=== PATIENT | male | born 1960 | race Caucasian/White ===

== ENCOUNTER 2018-05-18 13:16 | Emergency (ER) | payer OTHER ==
[~2018-05-18] VITALS: Ht 172.7 cm; Wt 111.1 kg
[2018-05-18] MEDS ORDERED: METO25 (14:08)
[2018-05-18 14:31] LABS: BASOPHILS ABSOLUTE AUTO 0.03 K/mm3 (0.00-0.23); BASOPHILS PERCENT AUTO 0 % (0-2); EOSINOPHILS ABSOLUTE AUTO 0.14 K/mm3 (0.00-0.68); EOSINOPHILS PERCENT AUTO 2 % (0-6); Hematocrit 48.3 % (37.0-53.0); Hemoglobin 15.5 g/dL (13.5-17.5); IMMATURE GRAN ABSOLUTE AUTO 0.03 K/mm3 (0.00-0.10); IMMATURE GRAN PERCENT AUTO 0 % (0-1); LYMPHOCYTES ABSOLUTE AUTO 2.55 K/mm3 (0.84-5.20); LYMPHOCYTES PERCENT AUTO 29 % (21-46); MONOCYTES ABSOLUTE AUTO 0.58 K/mm3 (0.16-1.47); MONOCYTES PERCENT AUTO 7 % (4-13); Mean Corpuscular HGB 27.6 pg (26.0-34.0); Mean Corpuscular HGB Conc 32.1 g/dL (31.5-36.5); Mean Corpuscular Volume 86 fL (80-100); Mean Platelet Volume 11.2 fL (9.1-12.4); NEUTROPHILS ABSOLUTE AUTO 5.59 K/mm3 (1.96-9.15); NEUTROPHILS PERCENT AUTO 63 % (41-73); Platelet Count 184 K/mm3 (150-400); RDW Coefficient Variation 13.7 % (11.7-14.2); RDW Standard Deviation 43.2 fL (35.1-46.3); Red Blood Cell Count 5.61 M/mm3 (4.30-5.90); White Blood Cell Count 8.92 K/mm3 (4.00-11.30)
[2018-05-18 15:32] LABS: Alanine Aminotransfer (ALT/SGP 28 U/L (12-78); Albumin, Blood 3.7 g/dL (3.4-5.0); Albumin/Globulin Ratio 0.9 (0.8-1.8); Alk Phos 76 U/L (50-136); Anion Gap 11 mmol/L (6-16); Aspartate Aminotrans (AST/SGOT 19 U/L (12-37); Bilirubin, Total 0.5 mg/dL (0.1-1.0); Blood Urea Nitrogen 11 mg/dL (8-24); Bun/Creatinine Ratio 14.1 (12.0-20.0); CO2, Blood 22 mmol/L (21-32); Calcium, Blood 8.6 mg/dL (8.5-10.1); Chloride, Blood 108 mmol/L (98-108); Creatinine, Blood 0.78 mg/dL (0.60-1.20); Glomerular Filtration Rate >60 (60-); Glucose, Blood 102 mg/dL (70-99); Potassium, Blood 3.4 mmol/L (3.5-5.5); Sodium, Blood 141 mmol/L (136-145); Total Protein, Blood 7.7 g/dL (6.4-8.2); Troponin I <0.015 ng/mL (0.000-0.040)
[2018-05-18] MEDS ORDERED: VENL150ER PO (16:31)
[2018-05-18] MEDS ORDERED: Lopressor 50 mg50 MG PO (16:31)
[2018-05-18] MEDS ORDERED: LOSA50 PO (16:31)
[2018-05-18] MEDS ORDERED: BREO ELLIPTA 11 EACH INH (16:31)
[2018-05-18] MEDS ORDERED: K-Dur10 MEQ PO (16:31)
[2018-05-18] MEDS ORDERED: Protonix40 MG PO (16:31)
[2018-05-18] MEDS ORDERED: Nitrostat0.4 MG SL (16:31)
[2018-05-18] MEDS ORDERED: ATOR20 PO (16:31)
[2018-05-18] MEDS ORDERED: ALBU90OI INH (16:31)
[2018-05-18] MEDS ORDERED: FLONASE ALLERG9.9 ML (16:31)
== END 2018-05-18 16:57 | disposition home or self-care (01) ==
LOC: ER 13:16
PROVIDERS: Emergency Medicine
DX: R06.00 Dyspnea, unspecified (principal); R07.9 Chest pain, unspecified; Z76.0 Encounter for issue of repeat prescription; Z88.8 Allergy status to other drugs, medicaments and biological substances; Z79.899 Other long term (current) drug therapy; Z77.22 Contact with and (suspected) exposure to environmental tobacco smoke (acute) (chronic)
CPT/HCPCS: 71046; 80053; 84484; 85025; 93005; 93010; 99285-25

== ENCOUNTER 2018-08-17 19:41 | Emergency (ER) | payer OTHER ==
[~2018-08-17] VITALS: Ht 180.3 cm; Wt 113.4 kg
[~2018-08-17 19:41] MED LIST: ALBU90OI INH; ATOR20 PO; BREO ELLIPTA 11 EACH INH; FLONASE ALLERG9.9 ML; K-Dur10 MEQ PO; LOSA50 PO; Lopressor 50 mg50 MG PO; METO25; Nitrostat0.4 MG SL; Protonix40 MG PO; VENL150ER PO
[2018-08-17 20:14] LABS: BASOPHILS ABSOLUTE AUTO 0.02 K/mm3 (0.00-0.23); BASOPHILS PERCENT AUTO 0 % (0-2); EOSINOPHILS ABSOLUTE AUTO 0.06 K/mm3 (0.00-0.68); EOSINOPHILS PERCENT AUTO 1 % (0-6); Hematocrit 51.2 % (37.0-53.0); Hemoglobin 16.3 g/dL (13.5-17.5); IMMATURE GRAN ABSOLUTE AUTO 0.02 K/mm3 (0.00-0.10); IMMATURE GRAN PERCENT AUTO 0 % (0-1); LYMPHOCYTES ABSOLUTE AUTO 1.67 K/mm3 (0.84-5.20); LYMPHOCYTES PERCENT AUTO 22 % (21-46); MONOCYTES ABSOLUTE AUTO 0.48 K/mm3 (0.16-1.47); MONOCYTES PERCENT AUTO 6 % (4-13); Mean Corpuscular HGB 28.2 pg (26.0-34.0); Mean Corpuscular HGB Conc 31.8 g/dL (31.5-36.5); Mean Corpuscular Volume 89 fL (80-100); Mean Platelet Volume 11.8 fL (9.1-12.4); NEUTROPHILS PERCENT AUTO 71 % (41-73); Platelet Count 204 K/mm3 (150-400); RDW Standard Deviation 45.3 fL (35.1-46.3); Red Blood Cell Count 5.77 M/mm3 (4.30-5.90); White Blood Cell Count 7.75 K/mm3 (4.00-11.30)
[2018-08-17 20:26] LABS: Alanine Aminotransfer (ALT/SGP 36 U/L (12-78); Albumin, Blood 4.3 g/dL (3.4-5.0); Albumin/Globulin Ratio 1.1 (0.8-1.8); Alk Phos 81 U/L (50-136); Anion Gap 9 mmol/L (6-16); Aspartate Aminotrans (AST/SGOT 17 U/L (12-37); Bilirubin, Total 0.5 mg/dL (0.1-1.0); Blood Urea Nitrogen 13 mg/dL (8-24); Bun/Creatinine Ratio 13.9 (12.0-20.0); CO2, Blood 26 mmol/L (21-32); Chloride, Blood 106 mmol/L (98-108); Creatinine, Blood 0.93 mg/dL (0.60-1.20); Globulin, Blood 3.9 g/dL (2.2-4.0); Glomerular Filtration Rate >60 (60-); Glucose, Blood 102 mg/dL (70-99); Potassium, Blood 3.9 mmol/L (3.5-5.5); Sodium, Blood 141 mmol/L (136-145); Total Protein, Blood 8.2 g/dL (6.4-8.2); Troponin I <0.015 ng/mL (0.000-0.040)
[2018-08-17] MEDS ORDERED: Aspirin EC81 MG PO (22:57)
== END 2018-08-17 23:12 | disposition home or self-care (01) ==
LOC: ER 19:41
PROVIDERS: Emergency Medicine
DX: R07.2 Precordial pain (principal); I25.10 Atherosclerotic heart disease of native coronary artery without angina pectoris; Z59.0 Homelessness; I25.2 Old myocardial infarction; I10 Essential (primary) hypertension; Z91.09 Other allergy status, other than to drugs and biological substances
CPT/HCPCS: 71046; 80053; 84484; 85025; 93005; 93010; 96374; 99285-25; J2405

== ENCOUNTER 2018-09-25 15:39 | Observation (INO) | payer OTHER ==
[~2018-09-25] VITALS: Ht 180.3 cm; Wt 139.3 kg
[~2018-09-25 15:39] MED LIST changes: +Aspirin EC81 MG PO; +PRED10 PO
[2018-09-25 16:12] LABS: BASOPHILS ABSOLUTE AUTO 0.03 K/mm3 (0.00-0.23); BASOPHILS PERCENT AUTO 0 % (0-2); EOSINOPHILS ABSOLUTE AUTO 0.12 K/mm3 (0.00-0.68); EOSINOPHILS PERCENT AUTO 1 % (0-6); Hematocrit 49.3 % (37.0-53.0); Hemoglobin 15.6 g/dL (13.5-17.5); IMMATURE GRAN ABSOLUTE AUTO 0.02 K/mm3 (0.00-0.10); IMMATURE GRAN PERCENT AUTO 0 % (0-1); LYMPHOCYTES ABSOLUTE AUTO 1.61 K/mm3 (0.84-5.20); LYMPHOCYTES PERCENT AUTO 19 % (21-46); MONOCYTES ABSOLUTE AUTO 0.57 K/mm3 (0.16-1.47); MONOCYTES PERCENT AUTO 7 % (4-13); Mean Corpuscular HGB 27.9 pg (26.0-34.0); Mean Corpuscular HGB Conc 31.6 g/dL (31.5-36.5); Mean Corpuscular Volume 88 fL (80-100); NEUTROPHILS ABSOLUTE AUTO 6.34 K/mm3 (1.96-9.15); NEUTROPHILS PERCENT AUTO 73 % (41-73); Platelet Count 174 K/mm3 (150-400); RDW Coefficient Variation 14.3 % (11.7-14.2); RDW Standard Deviation 45.5 fL (35.1-46.3); White Blood Cell Count 8.69 K/mm3 (4.00-11.30)
[2018-09-25 16:29] LABS: International Normalized Ratio 0.98; Prothrombin Time Results 10.1 Sec (9.7-11.5)
[2018-09-25 16:38] LABS: Alanine Aminotransfer (ALT/SGP 31 U/L (12-78); Albumin, Blood 3.4 g/dL (3.4-5.0); Albumin/Globulin Ratio 0.9 (0.8-1.8); Alk Phos 74 U/L (50-136); Anion Gap 9 mmol/L (6-16); Aspartate Aminotrans (AST/SGOT 11 U/L (12-37); Bilirubin, Total 0.3 mg/dL (0.1-1.0); Blood Urea Nitrogen 10 mg/dL (8-24); Bun/Creatinine Ratio 11.8 (12.0-20.0); CO2, Blood 23 mmol/L (21-32); Calcium, Blood 8.3 mg/dL (8.5-10.1); Chloride, Blood 110 mmol/L (98-108); Creatinine, Blood 0.84 mg/dL (0.60-1.20); Globulin, Blood 3.7 g/dL (2.2-4.0); Glomerular Filtration Rate >60 (60-); Glucose, Blood 93 mg/dL (70-99); Potassium, Blood 3.9 mmol/L (3.5-5.5); Sodium, Blood 142 mmol/L (136-145); Total Protein, Blood 7.1 g/dL (6.4-8.2); Troponin I <0.015 ng/mL (0.000-0.040)
[2018-09-25] MEDS ORDERED: Micro-K10 MEQ PO (21:34)
[2018-09-25] MEDS ORDERED: Amlodipine Bes2.5 MG PO (21:34)
[2018-09-25] MEDS ORDERED: METO50 PO (21:35)
[2018-09-25] MEDS ORDERED: ATOR20 PO (21:35)
[2018-09-25] MEDS ORDERED: VENL150ER PO ×2 (21:35→21:36)
[2018-09-25] MEDS ORDERED: LOSARTAN POTAS100 MG PO (21:36)
[2018-09-25] MEDS ORDERED: BUDE10.22 INH (21:36)
[2018-09-25] MEDS ORDERED: PANT40 PO (21:36)
[2018-09-25] MEDS ORDERED: ALBU90OI INH (21:37)
[2018-09-25] MEDS ORDERED: TIOT18 INH (21:37)
[2018-09-26 03:26] LABS: Source, Urine Clean Catch
[2018-09-26 03:29] LABS: Bilirubin, Urine Neg (Neg); Blood, Urine 1+ (Neg); Glucose Qualitative, Urine Neg (Neg); Ketones, Urine Neg (Neg); Leukocyte Esterase, Urine Neg (Neg); Nitrite, Urine Neg (Neg); Protein, Urine Neg (Neg); Urobilinogen, Urine NORM (Normal)
[2018-09-26 03:33] LABS: Appearance, Urine Clear (Clear); Color, Urine Yellow (P-Yellow)
[2018-09-26 03:38] LABS: Amorphous Light (0-Heavy); Bacteria Rare /hpf; Mucus Light (0-Heavy); Red Blood Cells, Urine 0-2 /hpf (0-2); Squamous Epithelial Cells Rare /hpf (Few); White Blood Cells, Urine Rare /hpf (0-5)
[2018-09-26 04:04] LABS: Hemoglobin 15.7 g/dL (13.5-17.5); Mean Corpuscular HGB 28.3 pg (26.0-34.0); Mean Corpuscular Volume 88 fL (80-100); Mean Platelet Volume 11.4 fL (9.1-12.4); Platelet Count 186 K/mm3 (150-400); RDW Coefficient Variation 14.5 % (11.7-14.2); RDW Standard Deviation 46.5 fL (35.1-46.3); Red Blood Cell Count 5.55 M/mm3 (4.30-5.90); White Blood Cell Count 9.52 K/mm3 (4.00-11.30)
[2018-09-26 04:21] LABS: Alanine Aminotransfer (ALT/SGP 39 U/L (12-78); Albumin, Blood 3.2 g/dL (3.4-5.0); Albumin/Globulin Ratio 0.8 (0.8-1.8); Alk Phos 75 U/L (50-136); Anion Gap 9 mmol/L (6-16); Aspartate Aminotrans (AST/SGOT 16 U/L (12-37); Bilirubin, Total 0.6 mg/dL (0.1-1.0); Blood Urea Nitrogen 15 mg/dL (8-24); Bun/Creatinine Ratio 19.3 (12.0-20.0); CO2, Blood 26 mmol/L (21-32); Calcium, Blood 8.8 mg/dL (8.5-10.1); Chloride, Blood 110 mmol/L (98-108); Creatinine, Blood 0.78 mg/dL (0.60-1.20); Globulin, Blood 3.8 g/dL (2.2-4.0); Glomerular Filtration Rate >60 (60-); Glucose, Blood 110 mg/dL (70-99); Potassium, Blood 3.8 mmol/L (3.5-5.5); Sodium, Blood 145 mmol/L (136-145)
[2018-09-27 05:22] LABS: Albumin, Blood 3.4 g/dL (3.4-5.0); Anion Gap 9 mmol/L (6-16); Blood Urea Nitrogen 17 mg/dL (8-24); CO2, Blood 24 mmol/L (21-32); Calcium, Blood 8.8 mg/dL (8.5-10.1); Chloride, Blood 107 mmol/L (98-108); Creatinine, Blood 0.81 mg/dL (0.60-1.20); Glomerular Filtration Rate >60 (60-); Glucose, Blood 116 mg/dL (70-99); Phosphorus, Blood 5.6 mg/dL (2.5-4.9); Potassium, Blood 4.3 mmol/L (3.5-5.5); Sodium, Blood 140 mmol/L (136-145)
[2018-09-28 06:14] LABS: Anion Gap 9 mmol/L (6-16); Blood Urea Nitrogen 24 mg/dL (8-24); Bun/Creatinine Ratio 28.8 (12.0-20.0); CO2, Blood 26 mmol/L (21-32); Calcium, Blood 8.8 mg/dL (8.5-10.1); Chloride, Blood 106 mmol/L (98-108); Creatinine, Blood 0.83 mg/dL (0.60-1.20); Glomerular Filtration Rate >60 (60-); Glucose, Blood 100 mg/dL (70-99); Sodium, Blood 141 mmol/L (136-145)
[2018-09-29 06:11] LABS: Anion Gap 8 mmol/L (6-16); Blood Urea Nitrogen 23 mg/dL (8-24); Bun/Creatinine Ratio 23.4 (12.0-20.0); CO2, Blood 29 mmol/L (21-32); Calcium, Blood 8.9 mg/dL (8.5-10.1); Chloride, Blood 104 mmol/L (98-108); Creatinine, Blood 0.98 mg/dL (0.60-1.20); Glomerular Filtration Rate >60 (60-); Glucose, Blood 106 mg/dL (70-99); Sodium, Blood 141 mmol/L (136-145)
[2018-09-30] MEDS ORDERED: Metoprolol Tar100 MG PO (16:18)
[2018-09-30] MEDS ORDERED: Bisac-Evac10 MG PR (16:18)
[2018-09-30] MEDS ORDERED: FURO20 PO (16:19)
[2018-09-30] MEDS ORDERED: ONDA4ODT MM (16:19)
[2018-09-30] MEDS ORDERED: XARELTO20 MG PO (16:20)
== END 2018-09-30 17:20 | disposition home or self-care (01) ==
LOC: ER 15:39 → SURS 15:40 → MEDS 15:40 → SURS 09-26 00:50
PROVIDERS: Family Medicine; Internal Medicine; Physician Assistant
DX: I11.0 Hypertensive heart disease with heart failure (principal); I50.9 Heart failure, unspecified; I48.91 Unspecified atrial fibrillation; I25.10 Atherosclerotic heart disease of native coronary artery without angina pectoris; E66.9 Obesity, unspecified; G47.33 Obstructive sleep apnea (adult) (pediatric); E11.9 Type 2 diabetes mellitus without complications; E78.00 Pure hypercholesterolemia, unspecified; Z79.01 Long term (current) use of anticoagulants; Z91.041 Radiographic dye allergy status; Z79.82 Long term (current) use of aspirin; Z79.899 Other long term (current) drug therapy; Z99.89 Dependence on other enabling machines and devices
CPT/HCPCS: 36415; 71046; 78452; 80048; 80053; 80069; 81001; 83880; 84443; 84484; 85025; 85027; 85610; 85730; 93005; 93010; 93017; 93306; 94640; 94660; 94762; 96374; 96375; 96376; 99285-25; A9500; G0378; J0360; J0706; J1940; J2785; J7040

== ENCOUNTER 2018-11-15 01:21 | Emergency (ER) | payer OTHER ==
[~2018-11-15] VITALS: Ht 180.3 cm; Wt 127.0 kg
[~2018-11-15 01:21] MED LIST changes: +Amlodipine Bes2.5 MG PO; +BUDE10.22 INH; +Bisac-Evac10 MG PR; +FURO20 PO; +LOSARTAN POTAS100 MG PO; +METO50 PO; +Metoprolol Tar100 MG PO; +Micro-K10 MEQ PO; +ONDA4ODT MM; +PANT40 PO; +TIOT18 INH; +XARELTO20 MG PO
[2018-11-15] MEDS ORDERED: Prednisone50 MG PO (02:17)
== END 2018-11-15 02:45 | disposition home or self-care (01) ==
LOC: ER 01:21
DX: J45.901 Unspecified asthma with (acute) exacerbation (principal); I25.2 Old myocardial infarction; I10 Essential (primary) hypertension; G47.30 Sleep apnea, unspecified; Z91.09 Other allergy status, other than to drugs and biological substances; Z91.048 Other nonmedicinal substance allergy status; Z79.899 Other long term (current) drug therapy; Z79.82 Long term (current) use of aspirin
CPT/HCPCS: 36415; 93005; 93010; 94640; 99284-25

== ENCOUNTER 2018-12-10 16:44 | Emergency (ER) | payer OTHER ==
[~2018-12-10] VITALS: Ht 180.3 cm; Wt 127.0 kg
[~2018-12-10 16:44] MED LIST changes: +Prednisone50 MG PO
[2018-12-10 18:44] LABS: BASOPHILS ABSOLUTE AUTO 0.02 K/mm3 (0.00-0.23); BASOPHILS PERCENT AUTO 0 % (0-2); EOSINOPHILS ABSOLUTE AUTO 0.13 K/mm3 (0.00-0.68); EOSINOPHILS PERCENT AUTO 2 % (0-6); Hematocrit 45.6 % (37.0-53.0); Hemoglobin 14.4 g/dL (13.5-17.5); IMMATURE GRAN ABSOLUTE AUTO 0.02 K/mm3 (0.00-0.10); IMMATURE GRAN PERCENT AUTO 0 % (0-1); LYMPHOCYTES ABSOLUTE AUTO 1.74 K/mm3 (0.84-5.20); LYMPHOCYTES PERCENT AUTO 23 % (21-46); MONOCYTES ABSOLUTE AUTO 0.47 K/mm3 (0.16-1.47); MONOCYTES PERCENT AUTO 6 % (4-13); Mean Corpuscular HGB 28.2 pg (26.0-34.0); Mean Corpuscular HGB Conc 31.6 g/dL (31.5-36.5); Mean Corpuscular Volume 89 fL (80-100); NEUTROPHILS ABSOLUTE AUTO 5.23 K/mm3 (1.96-9.15); NEUTROPHILS PERCENT AUTO 69 % (41-73); Platelet Count 179 K/mm3 (150-400); RDW Coefficient Variation 14.3 % (11.7-14.2); RDW Standard Deviation 47.3 fL (35.1-46.3); White Blood Cell Count 7.61 K/mm3 (4.00-11.30)
[2018-12-10 19:03] LABS: Alanine Aminotransfer (ALT/SGP 28 U/L (12-78); Albumin, Blood 3.4 g/dL (3.4-5.0); Albumin/Globulin Ratio 0.9 (0.8-1.8); Alk Phos 69 U/L (50-136); Anion Gap 7 mmol/L (6-16); Aspartate Aminotrans (AST/SGOT 11 U/L (12-37); Bilirubin, Total 0.4 mg/dL (0.1-1.0); Blood Urea Nitrogen 14 mg/dL (8-24); Bun/Creatinine Ratio 19.5 (12.0-20.0); CO2, Blood 25 mmol/L (21-32); Chloride, Blood 109 mmol/L (98-108); Creatinine, Blood 0.72 mg/dL (0.60-1.20); Globulin, Blood 3.8 g/dL (2.2-4.0); Glomerular Filtration Rate >60 (60-); Glucose, Blood 100 mg/dL (70-99); Potassium, Blood 3.7 mmol/L (3.5-5.5); Sodium, Blood 141 mmol/L (136-145); Total Protein, Blood 7.2 g/dL (6.4-8.2); Troponin I <0.015 ng/mL (0.000-0.040)
[2018-12-10] MEDS ORDERED: Nitrostat0.4 MG SL (21:14)
== END 2018-12-10 21:32 | disposition home or self-care (01) ==
LOC: ER 16:44
PROVIDERS: Emergency Medicine
DX: R07.9 Chest pain, unspecified (principal); I25.10 Atherosclerotic heart disease of native coronary artery without angina pectoris; I25.2 Old myocardial infarction; I10 Essential (primary) hypertension; E11.9 Type 2 diabetes mellitus without complications; J45.909 Unspecified asthma, uncomplicated; G47.30 Sleep apnea, unspecified; Z91.041 Radiographic dye allergy status; Z91.048 Other nonmedicinal substance allergy status; Z79.899 Other long term (current) drug therapy; Z79.82 Long term (current) use of aspirin; Z79.52 Long term (current) use of systemic steroids
CPT/HCPCS: 36415; 71046; 80053; 83690; 84484; 85025; 93005; 93010; 99285-25

== ENCOUNTER 2019-03-18 23:07 | Observation (INO) | payer OTHER ==
[~2019-03-18] VITALS: Ht 180.3 cm; Wt 111.1 kg
[~2019-03-18 23:07] MED LIST changes: +Aerochamber1 EACH INH
[2019-03-18 23:53] LABS: Source, Urine Catheter
[2019-03-18 23:59] LABS: BASOPHILS ABSOLUTE AUTO 0.03 K/mm3 (0.00-0.23); BASOPHILS PERCENT AUTO 0 % (0-2); Bilirubin, Urine Neg (Neg); Blood, Urine 2+ (Neg); EOSINOPHILS ABSOLUTE AUTO 0.15 K/mm3 (0.00-0.68); EOSINOPHILS PERCENT AUTO 2 % (0-6); Glucose Qualitative, Urine Neg (Neg); Hematocrit 48.4 % (37.0-53.0); Hemoglobin 15.2 g/dL (13.5-17.5); IMMATURE GRAN ABSOLUTE AUTO 0.03 K/mm3 (0.00-0.10); IMMATURE GRAN PERCENT AUTO 0 % (0-1); Ketones, Urine Neg (Neg); LYMPHOCYTES ABSOLUTE AUTO 1.98 K/mm3 (0.84-5.20); LYMPHOCYTES PERCENT AUTO 22 % (21-46); Leukocyte Esterase, Urine 1+ (Neg); MONOCYTES ABSOLUTE AUTO 0.66 K/mm3 (0.16-1.47); MONOCYTES PERCENT AUTO 7 % (4-13); Mean Corpuscular HGB Conc 31.4 g/dL (31.5-36.5); Mean Corpuscular Volume 89 fL (80-100); Mean Platelet Volume 12.2 fL (9.1-12.4); NEUTROPHILS PERCENT AUTO 68 % (41-73); Nitrite, Urine Neg (Neg); Platelet Count 191 K/mm3 (150-400); Protein, Urine 1+ (Neg); RDW Coefficient Variation 14.6 % (11.7-14.2); Red Blood Cell Count 5.42 M/mm3 (4.30-5.90); Urobilinogen, Urine NORM (Normal); White Blood Cell Count 8.95 K/mm3 (4.00-11.30); pH, Urine 6.5 (5.0-8.0)
[2019-03-19 00:06] LABS: Appearance, Urine Clear (Clear); Color, Urine Yellow (P-Yellow)
[2019-03-19 00:11] LABS: U Amphetamine Screen Not Detected; U Barbituate Screen Not Detected; U Benzodiazapine Screen Not Detected; U Buprenorphine Screen Not Detected; U Cannabinoids Screen Not Detected; U Cocaine Screen Not Detected; U Methadone Screen Not Detected; U Methamphetamine Screen Not Detected; U Opiates Screen Not Detected; U Oxycodone Screen Not Detected; U Phencyclidine Screen Not Detected; U Propoxyphene Screen Not Detected
[2019-03-19 00:13] LABS: Alanine Aminotransfer (ALT/SGP 31 U/L (12-78); Albumin, Blood 3.8 g/dL (3.4-5.0); Alk Phos 79 U/L (50-136); Anion Gap 9 mmol/L (6-16); Aspartate Aminotrans (AST/SGOT 16 U/L (12-37); Bacteria Rare /hpf; Bilirubin, Total 0.3 mg/dL (0.1-1.0); Blood Urea Nitrogen 14 mg/dL (8-24); Bun/Creatinine Ratio 16.5 (12.0-20.0); CO2, Blood 28 mmol/L (21-32); CPK Creatine Kinase 61 U/L (39-308); Chloride, Blood 106 mmol/L (98-108); Creatine Kinase MB 1.2 ng/mL (0.0-3.6); Creatinine, Blood 0.85 mg/dL (0.60-1.20); Glomerular Filtration Rate >60 (60-); Glucose, Blood 94 mg/dL (70-99); Magnesium, Blood 2.3 mg/dL (1.6-2.4); Mucus Light (0-Heavy); Potassium, Blood 3.7 mmol/L (3.5-5.5); Salicylate <1.7 mg/dL (2.8-20.0); Sodium, Blood 143 mmol/L (136-145); Squamous Epithelial Cells Rare /hpf (Few); Total Protein, Blood 7.8 g/dL (6.4-8.2); White Blood Cells, Urine 0-2 /hpf (0-5)
[2019-03-19 00:14] LABS: Acetaminophen, Random <2.0 ug/mL (10.0-30.0); Ethanol (Alcohol), Blood, Med <3 mg/dL; International Normalized Ratio 0.97; Prothrombin Time Results 10.3 Sec (9.7-11.5)
== END 2019-03-19 12:10 | disposition home or self-care (01) ==
LOC: ER 23:07 → EOR 23:08
PROVIDERS: ADMIT Emergency Medicine
DX: F22 Delusional disorders (principal); F29 Unspecified psychosis not due to a substance or known physiological condition; F39 Unspecified mood [affective] disorder; I25.2 Old myocardial infarction; I10 Essential (primary) hypertension; I48.91 Unspecified atrial fibrillation; J45.909 Unspecified asthma, uncomplicated; G47.30 Sleep apnea, unspecified; Z91.041 Radiographic dye allergy status; Z91.048 Other nonmedicinal substance allergy status; Z79.899 Other long term (current) drug therapy; Z79.52 Long term (current) use of systemic steroids; Z79.82 Long term (current) use of aspirin; Z86.73 Personal history of transient ischemic attack (TIA), and cerebral infarction without residual deficits; W18.30XA Fall on same level, unspecified, initial encounter
CPT/HCPCS: 70450; 80053; 81001; 82550; 82553; 83735; 85025; 85610; 87086; 87147; 93005; 93010; 99285-25; G0480; Q3014

== ENCOUNTER 2019-03-27 02:55 | Emergency (ER) | payer OTHER ==
[~2019-03-27] VITALS: Ht 180.3 cm; Wt 140.6 kg
[2019-03-27 03:15] LABS: BASOPHILS ABSOLUTE AUTO 0.03 K/mm3 (0.00-0.23); BASOPHILS PERCENT AUTO 0 % (0-2); EOSINOPHILS ABSOLUTE AUTO 0.15 K/mm3 (0.00-0.68); EOSINOPHILS PERCENT AUTO 2 % (0-6); Hematocrit 48.9 % (37.0-53.0); Hemoglobin 15.2 g/dL (13.5-17.5); IMMATURE GRAN ABSOLUTE AUTO 0.02 K/mm3 (0.00-0.10); IMMATURE GRAN PERCENT AUTO 0 % (0-1); LYMPHOCYTES ABSOLUTE AUTO 2.38 K/mm3 (0.84-5.20); LYMPHOCYTES PERCENT AUTO 28 % (21-46); MONOCYTES ABSOLUTE AUTO 0.67 K/mm3 (0.16-1.47); MONOCYTES PERCENT AUTO 8 % (4-13); Mean Corpuscular HGB 27.8 pg (26.0-34.0); Mean Corpuscular HGB Conc 31.1 g/dL (31.5-36.5); Mean Corpuscular Volume 90 fL (80-100); Mean Platelet Volume 11.4 fL (9.1-12.4); NEUTROPHILS PERCENT AUTO 62 % (41-73); Platelet Count 196 K/mm3 (150-400); RDW Coefficient Variation 14.8 % (11.7-14.2); RDW Standard Deviation 48.8 fL (35.1-46.3); Red Blood Cell Count 5.46 M/mm3 (4.30-5.90); White Blood Cell Count 8.45 K/mm3 (4.00-11.30)
[2019-03-27 03:36] LABS: Alanine Aminotransfer (ALT/SGP 28 U/L (12-78); Albumin, Blood 3.6 g/dL (3.4-5.0); Albumin/Globulin Ratio 0.9 (0.8-1.8); Alk Phos 78 U/L (50-136); Anion Gap 11 mmol/L (6-16); Aspartate Aminotrans (AST/SGOT 12 U/L (12-37); Bilirubin, Total 0.3 mg/dL (0.1-1.0); Blood Urea Nitrogen 19 mg/dL (8-24); Bun/Creatinine Ratio 18.1 (12.0-20.0); CO2, Blood 26 mmol/L (21-32); Calcium, Blood 8.6 mg/dL (8.5-10.1); Chloride, Blood 108 mmol/L (98-108); Creatinine, Blood 1.05 mg/dL (0.60-1.20); Glomerular Filtration Rate >60 (60-); Glucose, Blood 123 mg/dL (70-99); Potassium, Blood 3.6 mmol/L (3.5-5.5); Sodium, Blood 145 mmol/L (136-145); Total Protein, Blood 7.6 g/dL (6.4-8.2); Troponin I <0.015 ng/mL (0.000-0.040)
[2019-03-27] MEDS ORDERED: ONDA4ODT MM (04:41)
== END 2019-03-27 05:20 | disposition home or self-care (01) ==
LOC: ER 02:55
PROVIDERS: Emergency Medicine
DX: R11.2 Nausea with vomiting, unspecified (principal); Z88.8 Allergy status to other drugs, medicaments and biological substances; Z79.899 Other long term (current) drug therapy; Z79.82 Long term (current) use of aspirin; I10 Essential (primary) hypertension; I25.2 Old myocardial infarction; I48.91 Unspecified atrial fibrillation
CPT/HCPCS: 36415; 71046; 80053; 83690; 84484; 85025; 93005; 93010; 96374; 99284-25; G0480; J2405; J7030

== ENCOUNTER 2019-04-06 05:34 | Emergency (ER) | payer OTHER ==
[~2019-04-06] VITALS: Ht 180.3 cm; Wt 145.2 kg
[2019-04-06 06:05] LABS: BASOPHILS ABSOLUTE AUTO 0.03 K/mm3 (0.00-0.23); BASOPHILS PERCENT AUTO 0 % (0-2); EOSINOPHILS ABSOLUTE AUTO 0.23 K/mm3 (0.00-0.68); EOSINOPHILS PERCENT AUTO 3 % (0-6); Hematocrit 41.7 % (37.0-53.0); IMMATURE GRAN ABSOLUTE AUTO 0.02 K/mm3 (0.00-0.10); IMMATURE GRAN PERCENT AUTO 0 % (0-1); LYMPHOCYTES ABSOLUTE AUTO 1.56 K/mm3 (0.84-5.20); LYMPHOCYTES PERCENT AUTO 22 % (21-46); MONOCYTES ABSOLUTE AUTO 0.48 K/mm3 (0.16-1.47); MONOCYTES PERCENT AUTO 7 % (4-13); Mean Corpuscular HGB 27.8 pg (26.0-34.0); Mean Corpuscular HGB Conc 31.2 g/dL (31.5-36.5); Mean Corpuscular Volume 89 fL (80-100); Mean Platelet Volume 11.7 fL (9.1-12.4); NEUTROPHILS ABSOLUTE AUTO 4.85 K/mm3 (1.96-9.15); NEUTROPHILS PERCENT AUTO 68 % (41-73); Platelet Count 166 K/mm3 (150-400); RDW Coefficient Variation 15.3 % (11.7-14.2); RDW Standard Deviation 49.6 fL (35.1-46.3); Red Blood Cell Count 4.67 M/mm3 (4.30-5.90); White Blood Cell Count 7.17 K/mm3 (4.00-11.30)
[2019-04-06 06:25] LABS: Alanine Aminotransfer (ALT/SGP 26 U/L (12-78); Albumin, Blood 3.3 g/dL (3.4-5.0); Albumin/Globulin Ratio 0.9 (0.8-1.8); Alk Phos 62 U/L (50-136); Anion Gap 6 mmol/L (6-16); Aspartate Aminotrans (AST/SGOT 18 U/L (12-37); Bilirubin, Total 0.2 mg/dL (0.1-1.0); Blood Urea Nitrogen 13 mg/dL (8-24); CO2, Blood 25 mmol/L (21-32); Calcium, Blood 8.2 mg/dL (8.5-10.1); Chloride, Blood 111 mmol/L (98-108); Creatinine, Blood 0.76 mg/dL (0.60-1.20); Globulin, Blood 3.5 g/dL (2.2-4.0); Glomerular Filtration Rate >60 (60-); Glucose, Blood 114 mg/dL (70-99); Potassium, Blood 3.7 mmol/L (3.5-5.5); Sodium, Blood 142 mmol/L (136-145); Total Protein, Blood 6.8 g/dL (6.4-8.2); Troponin I <0.015 ng/mL (0.000-0.040)
[2019-04-06] MEDS ORDERED: Lasix20 MG PO (06:54)
== END 2019-04-06 07:35 | disposition home or self-care (01) ==
LOC: ER 05:34
PROVIDERS: Emergency Medicine
DX: R60.0 Localized edema (principal); I10 Essential (primary) hypertension; Z88.8 Allergy status to other drugs, medicaments and biological substances; Z79.899 Other long term (current) drug therapy; Z79.52 Long term (current) use of systemic steroids; Z79.82 Long term (current) use of aspirin; I25.10 Atherosclerotic heart disease of native coronary artery without angina pectoris; I48.91 Unspecified atrial fibrillation; J45.909 Unspecified asthma, uncomplicated; Z86.73 Personal history of transient ischemic attack (TIA), and cerebral infarction without residual deficits
CPT/HCPCS: 36415; 71046; 80053; 83880; 84484; 85025; 93005; 93010; 99284-25

== ENCOUNTER 2019-04-27 18:50 | Emergency (ER) | payer OTHER ==
[~2019-04-27] VITALS: Ht 180.3 cm; Wt 105.7 kg
[~2019-04-27 18:50] MED LIST changes: +Lasix20 MG PO
[2019-04-27 19:27] LABS: BASOPHILS ABSOLUTE AUTO 0.03 K/mm3 (0.00-0.23); BASOPHILS PERCENT AUTO 0 % (0-2); EOSINOPHILS ABSOLUTE AUTO 0.22 K/mm3 (0.00-0.68); EOSINOPHILS PERCENT AUTO 3 % (0-6); Hematocrit 46.8 % (37.0-53.0); Hemoglobin 14.4 g/dL (13.5-17.5); IMMATURE GRAN ABSOLUTE AUTO 0.02 K/mm3 (0.00-0.10); IMMATURE GRAN PERCENT AUTO 0 % (0-1); LYMPHOCYTES PERCENT AUTO 23 % (21-46); MONOCYTES ABSOLUTE AUTO 0.48 K/mm3 (0.16-1.47); MONOCYTES PERCENT AUTO 6 % (4-13); Mean Corpuscular HGB Conc 30.8 g/dL (31.5-36.5); Mean Corpuscular Volume 91 fL (80-100); Mean Platelet Volume 11.8 fL (9.1-12.4); NEUTROPHILS ABSOLUTE AUTO 5.47 K/mm3 (1.96-9.15); NEUTROPHILS PERCENT AUTO 67 % (41-73); Platelet Count 191 K/mm3 (150-400); RDW Coefficient Variation 14.8 % (11.7-14.2); RDW Standard Deviation 49.8 fL (35.1-46.3); Red Blood Cell Count 5.15 M/mm3 (4.30-5.90); White Blood Cell Count 8.12 K/mm3 (4.00-11.30)
[2019-04-27 19:45] LABS: Alanine Aminotransfer (ALT/SGP 33 U/L (12-78); Albumin, Blood 3.5 g/dL (3.4-5.0); Albumin/Globulin Ratio 0.9 (0.8-1.8); Alk Phos 61 U/L (50-136); Anion Gap 7 mmol/L (6-16); Aspartate Aminotrans (AST/SGOT 14 U/L (12-37); Bilirubin, Total 0.4 mg/dL (0.1-1.0); Blood Urea Nitrogen 16 mg/dL (8-24); Bun/Creatinine Ratio 16.9 (12.0-20.0); CO2, Blood 25 mmol/L (21-32); Calcium, Blood 8.8 mg/dL (8.5-10.1); Chloride, Blood 109 mmol/L (98-108); Creatinine, Blood 0.95 mg/dL (0.60-1.20); Globulin, Blood 3.7 g/dL (2.2-4.0); Glomerular Filtration Rate >60 (60-); Glucose, Blood 162 mg/dL (70-99); Sodium, Blood 141 mmol/L (136-145); Total Protein, Blood 7.2 g/dL (6.4-8.2); Troponin I <0.015 ng/mL (0.000-0.040)
[2019-04-27] MEDS ORDERED: ELIQUIS5 MG PO (20:15)
[2019-04-27] MEDS ORDERED: Lasix20 MG PO (20:15)
== END 2019-04-27 20:33 | disposition home or self-care (01) ==
LOC: ER 18:50
PROVIDERS: Physician Assistant
DX: I48.91 Unspecified atrial fibrillation (principal); R60.0 Localized edema; Z88.8 Allergy status to other drugs, medicaments and biological substances; Z79.899 Other long term (current) drug therapy; Z79.82 Long term (current) use of aspirin; I25.2 Old myocardial infarction; I10 Essential (primary) hypertension
CPT/HCPCS: 36415; 71046; 80053; 83880; 84484; 85025; 93005; 93010; 99284-25

== ENCOUNTER 2019-05-03 01:19 | Emergency (ER) | payer OTHER ==
[~2019-05-03] VITALS: Ht 180.3 cm; Wt 151.9 kg
[~2019-05-03 01:19] MED LIST changes: +ELIQUIS5 MG PO
[2019-05-03 01:53] LABS: BASOPHILS ABSOLUTE AUTO 0.03 K/mm3 (0.00-0.23); BASOPHILS PERCENT AUTO 0 % (0-2); EOSINOPHILS ABSOLUTE AUTO 0.16 K/mm3 (0.00-0.68); EOSINOPHILS PERCENT AUTO 2 % (0-6); Hemoglobin 13.8 g/dL (13.5-17.5); IMMATURE GRAN ABSOLUTE AUTO 0.02 K/mm3 (0.00-0.10); IMMATURE GRAN PERCENT AUTO 0 % (0-1); LYMPHOCYTES ABSOLUTE AUTO 1.76 K/mm3 (0.84-5.20); LYMPHOCYTES PERCENT AUTO 22 % (21-46); MONOCYTES ABSOLUTE AUTO 0.66 K/mm3 (0.16-1.47); MONOCYTES PERCENT AUTO 8 % (4-13); Mean Corpuscular HGB 27.7 pg (26.0-34.0); Mean Corpuscular HGB Conc 30.7 g/dL (31.5-36.5); Mean Corpuscular Volume 90 fL (80-100); Mean Platelet Volume 11.6 fL (9.1-12.4); NEUTROPHILS ABSOLUTE AUTO 5.25 K/mm3 (1.96-9.15); NEUTROPHILS PERCENT AUTO 67 % (41-73); Platelet Count 174 K/mm3 (150-400); RDW Standard Deviation 49.9 fL (35.1-46.3); Red Blood Cell Count 4.99 M/mm3 (4.30-5.90); White Blood Cell Count 7.88 K/mm3 (4.00-11.30)
[2019-05-03 02:12] LABS: Alanine Aminotransfer (ALT/SGP 33 U/L (12-78); Albumin, Blood 3.4 g/dL (3.4-5.0); Albumin/Globulin Ratio 0.9 (0.8-1.8); Alk Phos 60 U/L (50-136); Anion Gap 8 mmol/L (6-16); Aspartate Aminotrans (AST/SGOT 25 U/L (12-37); Bilirubin, Total 0.3 mg/dL (0.1-1.0); Blood Urea Nitrogen 14 mg/dL (8-24); Bun/Creatinine Ratio 17.3 (12.0-20.0); CO2, Blood 27 mmol/L (21-32); Calcium, Blood 8.3 mg/dL (8.5-10.1); Chloride, Blood 108 mmol/L (98-108); Creatinine, Blood 0.81 mg/dL (0.60-1.20); Globulin, Blood 3.6 g/dL (2.2-4.0); Glomerular Filtration Rate >60 (60-); Glucose, Blood 131 mg/dL (70-99); Sodium, Blood 143 mmol/L (136-145); Troponin I <0.015 ng/mL (0.000-0.040)
[2019-05-03] MEDS ORDERED: Prednisone20 MG PO (02:28)
[2019-05-03] MEDS ORDERED: ALBU90OI INH (02:28)
== END 2019-05-03 02:44 | disposition home or self-care (01) ==
LOC: ER 01:19
PROVIDERS: Emergency Medicine
DX: J44.1 Chronic obstructive pulmonary disease with (acute) exacerbation (principal); Z88.8 Allergy status to other drugs, medicaments and biological substances; Z79.899 Other long term (current) drug therapy; Z79.52 Long term (current) use of systemic steroids; Z79.82 Long term (current) use of aspirin; I25.2 Old myocardial infarction; I10 Essential (primary) hypertension; I48.91 Unspecified atrial fibrillation; Z86.73 Personal history of transient ischemic attack (TIA), and cerebral infarction without residual deficits; J45.909 Unspecified asthma, uncomplicated
CPT/HCPCS: 71046; 80053; 83880; 84484; 85025; 93005; 93010; 94640; 96374; 99285-25; J2930

== ENCOUNTER 2019-05-21 20:32 | Inpatient (IN) | payer OTHER ==
[~2019-05-21] VITALS: Ht 180.3 cm; Wt 153.8 kg
[~2019-05-21 20:32] MED LIST changes: +Prednisone20 MG PO
[2019-05-21 20:55] LABS: BASOPHILS ABSOLUTE AUTO 0.03 K/mm3 (0.00-0.23); BASOPHILS PERCENT AUTO 0 % (0-2); EOSINOPHILS ABSOLUTE AUTO 0.17 K/mm3 (0.00-0.68); EOSINOPHILS PERCENT AUTO 2 % (0-6); Hematocrit 47.8 % (37.0-53.0); Hemoglobin 15.2 g/dL (13.5-17.5); IMMATURE GRAN ABSOLUTE AUTO 0.02 K/mm3 (0.00-0.10); IMMATURE GRAN PERCENT AUTO 0 % (0-1); LYMPHOCYTES ABSOLUTE AUTO 1.84 K/mm3 (0.84-5.20); LYMPHOCYTES PERCENT AUTO 20 % (21-46); MONOCYTES ABSOLUTE AUTO 0.61 K/mm3 (0.16-1.47); MONOCYTES PERCENT AUTO 7 % (4-13); Mean Corpuscular HGB 27.7 pg (26.0-34.0); Mean Corpuscular HGB Conc 31.8 g/dL (31.5-36.5); Mean Corpuscular Volume 87 fL (80-100); NEUTROPHILS ABSOLUTE AUTO 6.75 K/mm3 (1.96-9.15); NEUTROPHILS PERCENT AUTO 72 % (41-73); RDW Coefficient Variation 14.9 % (11.7-14.2); RDW Standard Deviation 47.8 fL (35.1-46.3); Red Blood Cell Count 5.48 M/mm3 (4.30-5.90); White Blood Cell Count 9.42 K/mm3 (4.00-11.30)
[2019-05-21 20:59] LABS: Mean Platelet Volume 12.2 fL (9.1-12.4); Platelet Count 174 K/mm3 (150-400)
[2019-05-21 21:16] LABS: Alanine Aminotransfer (ALT/SGP 42 U/L (12-78); Albumin, Blood 3.4 g/dL (3.4-5.0); Albumin/Globulin Ratio 0.8 (0.8-1.8); Alk Phos 67 U/L (50-136); Anion Gap 7 mmol/L (6-16); Aspartate Aminotrans (AST/SGOT 50 U/L (12-37); Bilirubin, Total 0.5 mg/dL (0.1-1.0); Blood Urea Nitrogen 12 mg/dL (8-24); Bun/Creatinine Ratio 14.7 (12.0-20.0); CO2, Blood 25 mmol/L (21-32); Calcium, Blood 8.8 mg/dL (8.5-10.1); Chloride, Blood 108 mmol/L (98-108); Creatinine, Blood 0.82 mg/dL (0.60-1.20); Globulin, Blood 4.3 g/dL (2.2-4.0); Glomerular Filtration Rate >60 (60-); Glucose, Blood 123 mg/dL (70-99); Potassium, Blood 4.7 mmol/L (3.5-5.5); Sodium, Blood 140 mmol/L (136-145); Total Protein, Blood 7.7 g/dL (6.4-8.2)
--- NOTE | 2019-05-22 04:50 | NUR ---
SHIFT SUMMARY PT ARRIVED TO FLOOR IN NO DISTRESS. PT HAS BEEN UP TO URINATE FREQUENTLY DUE TO LASIX. PT DENIES ANY CX PAIN OR SOB. PT UNABLE TO TOLERATE [facility] CPAP MACHINE A NC VIA 2LPM O2 WAS PLACED ON PT WITH GOOD RESULT. PT CURRENTLY AWAKE ON HIS PHONE. PT IN NO DISTRESS AND BREATHING EASY. CALL LIGHT IN REACH.
[2019-05-22 04:55] LABS: Hematocrit 48.7 % (37.0-53.0); Hemoglobin 15.4 g/dL (13.5-17.5); Mean Corpuscular HGB 27.7 pg (26.0-34.0); Mean Corpuscular HGB Conc 31.6 g/dL (31.5-36.5); Mean Corpuscular Volume 88 fL (80-100); Mean Platelet Volume 11.6 fL (9.1-12.4); Platelet Count 192 K/mm3 (150-400); RDW Coefficient Variation 15.1 % (11.7-14.2); RDW Standard Deviation 48.5 fL (35.1-46.3); Red Blood Cell Count 5.55 M/mm3 (4.30-5.90); White Blood Cell Count 9.01 K/mm3 (4.00-11.30)
[2019-05-22 05:17] LABS: Anion Gap 13 mmol/L (6-16); Blood Urea Nitrogen 15 mg/dL (8-24); Bun/Creatinine Ratio 16.5 (12.0-20.0); CO2, Blood 23 mmol/L (21-32); CPK Creatine Kinase 60 U/L (39-308); Calcium, Blood 9.2 mg/dL (8.5-10.1); Chloride, Blood 104 mmol/L (98-108); Creatinine, Blood 0.91 mg/dL (0.60-1.20); Glomerular Filtration Rate >60 (60-); Glucose, Blood 294 mg/dL (70-99); Magnesium, Blood 2.1 mg/dL (1.6-2.4); Potassium, Blood 4.1 mmol/L (3.5-5.5); Sodium, Blood 140 mmol/L (136-145); Troponin I <0.015 ng/mL (0.000-0.040)
[2019-05-22 05:18] LABS: Alanine Aminotransfer (ALT/SGP 45 U/L (12-78); Albumin, Blood 3.7 g/dL (3.4-5.0); Albumin/Globulin Ratio 0.9 (0.8-1.8); Alk Phos 72 U/L (50-136); Anion Gap 12 mmol/L (6-16); Aspartate Aminotrans (AST/SGOT 17 U/L (12-37); Bilirubin, Total 0.3 mg/dL (0.1-1.0); Blood Urea Nitrogen 14 mg/dL (8-24); Bun/Creatinine Ratio 15.9 (12.0-20.0); CO2, Blood 23 mmol/L (21-32); Calcium, Blood 9.1 mg/dL (8.5-10.1); Chloride, Blood 105 mmol/L (98-108); Creatinine, Blood 0.88 mg/dL (0.60-1.20); Globulin, Blood 4.3 g/dL (2.2-4.0); Glomerular Filtration Rate >60 (60-); Glucose, Blood 289 mg/dL (70-99); Potassium, Blood 4.1 mmol/L (3.5-5.5); Sodium, Blood 140 mmol/L (136-145)
--- NOTE | 2019-05-22 11:29 | NUR ---
Echocardiogram completed.
[2019-05-22 13:26] LABS: CPK Creatine Kinase 63 U/L (39-308); Troponin I <0.015 ng/mL (0.000-0.040)
--- NOTE | 2019-05-22 18:33 | NUR ---
NO ACUTE CHANGES NOTED THIS SHIFT, NO REPORT OF PAIN OR NAUSEA. TELE SHOWING AFIB WITH RATES IN THE MID 80'S. WILL CONTINUE TO MONITOR AND REPORT TO ONCOMING RN
--- NOTE | 2019-05-23 04:59 | NUR ---
shift summary pt had no issues noted. pt slept t/o shift. pt currently sleeping and breathing easy. call light in reach
[2019-05-23 08:37] LABS: Anion Gap 6 mmol/L (6-16); Blood Urea Nitrogen 17 mg/dL (8-24); Bun/Creatinine Ratio 21.6 (12.0-20.0); CO2, Blood 27 mmol/L (21-32); Calcium, Blood 8.4 mg/dL (8.5-10.1); Chloride, Blood 108 mmol/L (98-108); Creatinine, Blood 0.79 mg/dL (0.60-1.20); Glomerular Filtration Rate >60 (60-); Glucose, Blood 112 mg/dL (70-99); Potassium, Blood 4.1 mmol/L (3.5-5.5); Sodium, Blood 141 mmol/L (136-145)
--- NOTE | 2019-05-23 10:15 | NUR ---
PT REPORTS BEING SOB AND HAVING SHALLOW BREATHING, 2LNC PLACED AND RESP CALLED FOR BREATHING TX
--- NOTE | 2019-05-23 19:25 | NUR ---
PT ON ROOM AIR, CONT. BIOX SHOWS SATS IN 90'S. HE DOES BECOME SOB WITH ACTIVITY, RESP TX PRN. NO ACUTE CHANGES NOTED, WILL CONTINUE TO MONITOR AND REPORT TO ONCOMING RN
--- NOTE | 2019-05-23 23:35 | NUR ---
2000 PT HAPPY AND COOPERATIVE, INTENDS TO SHOWER LATER THIS SHIFT. 2200 PT SHOWERED WITH NEW GOWN AND FRESH LINEN PROVIDED BY NURSING STAFF, DENIES DYSPNEA DURING THIS ACTIVITY.
--- NOTE | 2019-05-24 04:48 | NUR ---
SHIFT SUMMARY: 59 Y/O OBESE MALE RESTED COMFORTABLY ALL SHIFT WITH NO PAIN OR NAUSEA, TELEMETRY REFLECTS A/FIB WITH HEART RATE 80 PER BOBBIN FIXER LIN, BED LOW POSITION, CALL LIGHT AT SIDE.
--- NOTE | 2019-05-24 13:32 | NUR ---
PT AOX4 AND COOPERATIVE OF CARE. PT RESTING IN BED ALL MORNING. NO DISTRESS REPORTED. REPORT GIVEN TO ONCOMMING NURSE.
--- NOTE | 2019-05-24 14:15 | NUR ---
Pt full code. Nursing concerned with pt's noncompliance with CPAP. Pt alert, oriented, pleasant. Reviewed advance directives. Pt states that he is still mourning the passing of his of 34 years. He reports that he wears the CPAP at home. He listenes politely as advance directive purpose is explained. He reports that he does not have an alternative decision maker at this time and has never thought about who he would trust with making decisions for him. Will remain available. Pt denies pain, anxiety.
--- NOTE | 2019-05-24 19:20 | NUR ---
shift summary assumed care of patient after lunch. patient denies pain, nausea, and shortness of breath. patient up independent to the bathroom. patient's legs still very edematous. call light in reach.
[2019-05-25 04:36] LABS: BASOPHILS ABSOLUTE AUTO 0.03 K/mm3 (0.00-0.23); BASOPHILS PERCENT AUTO 0 % (0-2); EOSINOPHILS ABSOLUTE AUTO 0.19 K/mm3 (0.00-0.68); EOSINOPHILS PERCENT AUTO 2 % (0-6); Hematocrit 50.1 % (37.0-53.0); IMMATURE GRAN ABSOLUTE AUTO 0.04 K/mm3 (0.00-0.10); IMMATURE GRAN PERCENT AUTO 0 % (0-1); LYMPHOCYTES ABSOLUTE AUTO 2.29 K/mm3 (0.84-5.20); LYMPHOCYTES PERCENT AUTO 20 % (21-46); MONOCYTES ABSOLUTE AUTO 0.71 K/mm3 (0.16-1.47); MONOCYTES PERCENT AUTO 6 % (4-13); Mean Corpuscular HGB Conc 31.9 g/dL (31.5-36.5); Mean Corpuscular Volume 85 fL (80-100); Mean Platelet Volume 11.3 fL (9.1-12.4); NEUTROPHILS ABSOLUTE AUTO 8.13 K/mm3 (1.96-9.15); NEUTROPHILS PERCENT AUTO 71 % (41-73); Platelet Count 205 K/mm3 (150-400); RDW Coefficient Variation 15.3 % (11.7-14.2); RDW Standard Deviation 46.7 fL (35.1-46.3); Red Blood Cell Count 5.92 M/mm3 (4.30-5.90); White Blood Cell Count 11.39 K/mm3 (4.00-11.30)
[2019-05-25 05:00] LABS: Alanine Aminotransfer (ALT/SGP 36 U/L (12-78); Albumin, Blood 3.9 g/dL (3.4-5.0); Albumin/Globulin Ratio 0.9 (0.8-1.8); Alk Phos 76 U/L (50-136); Anion Gap 10 mmol/L (6-16); Aspartate Aminotrans (AST/SGOT 13 U/L (12-37); Bilirubin, Total 0.7 mg/dL (0.1-1.0); Blood Urea Nitrogen 22 mg/dL (8-24); Bun/Creatinine Ratio 21.2 (12.0-20.0); CO2, Blood 29 mmol/L (21-32); Calcium, Blood 9.5 mg/dL (8.5-10.1); Chloride, Blood 98 mmol/L (98-108); Creatinine, Blood 1.04 mg/dL (0.60-1.20); Globulin, Blood 4.2 g/dL (2.2-4.0); Glomerular Filtration Rate >60 (60-); Glucose, Blood 134 mg/dL (70-99); Magnesium, Blood 2.2 mg/dL (1.6-2.4); Sodium, Blood 137 mmol/L (136-145); Total Protein, Blood 8.1 g/dL (6.4-8.2)
--- NOTE | 2019-05-25 06:27 | NUR ---
SHIFT SUMMARY: JANETTE HAS BEEN UP AND DOWN ALL NIGHT DUE TO NEED FOR BATHROOM USE. HE WAS GIVEN BUMEX BEFORE END OF DAY SHIFT WHICH WAS SUCCESSFUL. HE DENIED ANY PAIN OR DISCOMFORT THIS SHIFT. STATES NO COMPLAINTS OR CONCERNS. DID NOT WEAR HIS CPAP DUE TO GETTING UP AND DOWN SO MUCH. SLEPT IN BETWEEN. NO ACUTE CHANGES OCCURRED THIS SHIFT. WILL REPORT TO DAY SHIFT RN.
--- NOTE | 2019-05-25 19:52 | NUR ---
shift summary no acute changes. patient denies pain, nausea, and shortness of breath. patient up to br independently. patient's legs are still edematous but less so than yesterday. telemetry discontinued. patient refuses cpap due to constantly having to remove the mask to get up and urinate because of diuretics. 2 liters / when asleep to maintain saturation. call light in reach.
[2019-05-26 05:04] LABS: Bun/Creatinine Ratio 26.1 (12.0-20.0); Calcium, Blood 9.8 mg/dL (8.5-10.1); Creatinine, Blood 1.42 mg/dL (0.60-1.20); Magnesium, Blood 2.3 mg/dL (1.6-2.4)
--- NOTE | 2019-05-26 05:38 | NUR ---
SHIFT SUMMARY: JANETTE HAS HAD AN UNEVENTFUL NIGHT. HE HAS BEEN UP AND DOWN THROUGOUT THE NIGHT INDEPENDENT IN THE ROOM. HE HAS USED HIS 2 LITERS OF OXYGEN WHILE SLEEPING TO KEEP SATS ABOVE THE 90%. HE HAD HAD CONTINUOUS BIOX ON ALL NIGHT, AND HAS DONE WELL. MEDS WERE GIVEN PER EMAR. HE HAS HAD NO COMPLAINTS OR CONCERNS, NO ACUTE CHANGES ALL NIGHT. WILL REPORT TO DAY SHIFT RN.
--- NOTE | 2019-05-26 08:20 | NUR ---
PT PLEASANT COOP A/O. C/O WEAKNESS, BUT WALKS INDEPENDANT TO BATHROOM. DENIES PAIN. H/R REG, NO MURMER NOTED. NO TELE. LUNGS CLEAR, RESP EASY UNLABORED. ON 2L O2. DOES DESAT WHEN HE TAKES O2 OFF. BT X4 LAST BM LAST NITE. VOIDS INDEPENDANT TO BATHROOM. BED IN LOW POSITION, CALL LITE IN REACH CALLS APPROP
--- NOTE | 2019-05-26 11:12 | NUR ---
PT C/O LEFT EAR PAIN, AND UPPER MID STERNAL PAIN. LASTED ABOUT MIN. GONE WHEN SAT UP. VSS. SPOKE TO DR WADSWORTH. LIKELY RELATED TO K+. NO NEW ORDERS. INFORMED PT DESATING. IS ON 2L ALL NITE.
--- NOTE | 2019-05-26 18:12 | NUR ---
pt pleasant today. did make c/o not liking settings on cpap . referred to rt to adjust. pt does exhibit 15+- pauses in resp while sleeping. o2 sats drop to 80's when pauses. encouraged him to use cpap whenever sleeps/naps . recovers quickly when takes breath. no other concerns at this time. bed inlow position, call lite in reach, independant in room.
--- NOTE | 2019-05-26 20:53 | NUR ---
JANETTE WAS HAVING SOME CHEST PAIN ON THE LEFT SIDE THAT RADIATED ACROSS AND TO BILATERAL EARS. NO JAW PAIN, NOTHING DOWN THE ARMS. CONTINUOUS BIOX SHOWED NORMAL PULSE AND OXYGEN. HAD HIM SIT UP ON SIDE OF THE BED. THIS SEEMED TO HELP. HAD HIM DO SOME DEEP BREATHING. PULSE REGULAR RHYTHEM, ARMS ABOVE CHEST HELPED TO IMPROVE. AFTER A WHILE THE PAIN SEEMED TO SUBSIDE. VITAL WERE NORMAL.
[2019-05-27 05:46] LABS: Bilirubin, Total 0.8 mg/dL (0.1-1.0); Calcium, Blood 9.6 mg/dL (8.5-10.1); Creatinine, Blood 1.96 mg/dL (0.60-1.20); Potassium, Blood 3.5 mmol/L (3.5-5.5)
--- NOTE | 2019-05-27 06:46 | NUR ---
SHIFT SUMMARY: PATIENT HAD SOME CHEST PAIN AT THE BEGINNING OF THE SHIFT. THIS RESIDED AFTER REPOSITIONING AND DEEP BREATHING. HE DID NOT HAVE THE PAIN AGAIN. DID GET HIM TO USE THE CPAP ALL NIGHT, OCCATIONALLY HIS HEART RATE WOULD DROP BELOW 60 BUT THEN COME RIGHT BACK UP, POSSIBLE MONITOR ISSUES, IT WOULD DROP WHEN HE MOVED HIS HAND. HE SLEPT WELL ALL NIGHT WITH THE CPAP ON SATS REMAINED WNL. NO OTHER ACUTE CHANGES, WILL REPORT TO DAY SHIFT RN.
--- NOTE | 2019-05-27 08:30 | NUR ---
PT PLEASANT COOP A/O. TALKATIVE. STATES WORE CPAP LAST NITE. VERY LITTLE BEEPING PER PT. REPORT FROM NITE RN IS THAT WHEN SLEEPING H/R DOES DROP UNDER 60'S. NOTIFIED IN [place] THIS AM. H/R REG, NO MURMER NOTED. NO TELE. LUNGS CLEAR, RESP EASY, UNLABORED. ON 2L O2. CPAP AT NITES. BT X4 LAST BM THIS AM. PT STATES SOME DIARRHEA YEST, SOFT THIS AM, VOIDS PER BATHROOM. INDEPENDANT IN ROOM. BED IN LOW POSITION,C ALL LITE IN REACH, CALLS APPROP
--- NOTE | 2019-05-27 13:39 | NUR ---
ASSUMED CARE OF PATIENT FROM YOSELIN BURT RN @ 1300. PATIENT ON RA AT THIS TIME WITH SATS 90-93%. NO COMPLAINTS AT THIS TIME. I AGREE WITH PREVIOUS AUTOMOBILE WASHER STEAM OF PATIENT
--- NOTE | 2019-05-27 18:39 | NUR ---
SHIFT SUMMARY PATIENT HAS BEEN ON ROOM AIR WHILE AWAKE SINCE I ASSUMED CARE OF PATIENT WITH SATS >90. WHEN ASLEEP HE HAS WORN HIS CPAP AND SATS HAVE MAINTAINED >90. HR HAS BEEN IN LOW 50'S. HR IRREGULAR RHYTHM. NO COMPLAINTS TODAY. PATIENT EATING DINNER AT THIS TIME WITH REQUESTS TO SHOWER AFTERWARD.
--- NOTE | 2019-05-28 04:39 | NUR ---
SHIFT SUMMARY PT HAD SHORT PERIOD OF SOB THAT RESOLVED ON OWN. PT HAD NO OTHER ISSUES NOTED. PT SLEPT WITH CPAP T/O THE SHIFT. PT CURRENTLY SLEEPING AND BREATHING EASY. CALL LIGHT IN REACH.
[2019-05-28 05:23] LABS: Bun/Creatinine Ratio 34.7 (12.0-20.0); Calcium, Blood 9.5 mg/dL (8.5-10.1); Creatinine, Blood 1.67 mg/dL (0.60-1.20); Potassium, Blood 3.3 mmol/L (3.5-5.5)
[2019-05-28] MEDS ORDERED: Cardizem CD 12120 MG PO (14:25)
[2019-05-28] MEDS ORDERED: FURO40 PO (14:26)
--- NOTE | 2019-05-28 16:22 | NUR ---
PT DC HOME. ALL MEDS AND INSTRUCTIONS REVIEWED WITH PT WHO VERBALIZES AN UNDERSTANDING. IV REMOVED WITH NO ISSUE. ALL BELONGINGS SENT WITH PT. PT STABLE AND PLEASANT UPON DC.
[2019-08-06] MEDS ORDERED: Prednisone20 MG PO (19:39)
== END 2019-05-28 16:15 | disposition home or self-care (01) | DRG 308 ==
LOC: ER 20:32 → MEDS 20:33 → ER 20:33 → MEDS 20:33 → ER 23:46 → MEDS 23:46
PROVIDERS: Emergency Medicine; Hospitalist; Internal Medicine; ADMIT Internal Medicine
DX: I48.91 Unspecified atrial fibrillation (principal); I50.33 Acute on chronic diastolic (congestive) heart failure; N17.9 Acute kidney failure, unspecified; Z68.41 Body mass index [BMI] 40.0-44.9, adult; I11.0 Hypertensive heart disease with heart failure; G47.33 Obstructive sleep apnea (adult) (pediatric); E66.01 Morbid (severe) obesity due to excess calories; E87.6 Hypokalemia; J45.909 Unspecified asthma, uncomplicated; Z88.8 Allergy status to other drugs, medicaments and biological substances; Z91.048 Other nonmedicinal substance allergy status; Z79.82 Long term (current) use of aspirin; Z79.01 Long term (current) use of anticoagulants; Z79.52 Long term (current) use of systemic steroids; Z79.899 Other long term (current) drug therapy; I25.2 Old myocardial infarction; Z86.73 Personal history of transient ischemic attack (TIA), and cerebral infarction without residual deficits
CPT/HCPCS: 36415; 71046; 80048; 80053; 82550; 83735; 83880; 84443; 84484; 85025; 85027; 93005; 93010; 93306; 93971; 94640; 94644; 94660; 94664; 94760; 94762; 96374; 96375; 98960; 99285-25; J0360; J1940; J2405; J2930

== ENCOUNTER → 2019-06-02 | Outpatient (CLI) | payer OTHER ==
[~2019-06-02] MED LIST changes: +AMLO10 PO; +COMBIVENT RESPIM4 GM INH; +Cardizem CD 12120 MG PO; +FURO40 PO; +Flonase 0.05% N16 GM; +MONT10T PO; +OLAN10 PO
[2019-06-02 18:53] LABS: Alanine Aminotransfer (ALT/SGP 37 U/L (12-78); Albumin, Blood 3.5 g/dL (3.4-5.0); Albumin/Globulin Ratio 0.9 (0.8-1.8); Alk Phos 65 U/L (50-136); Anion Gap 4 mmol/L (6-16); Aspartate Aminotrans (AST/SGOT 14 U/L (12-37); Bilirubin, Total 0.3 mg/dL (0.1-1.0); Blood Urea Nitrogen 19 mg/dL (8-24); Bun/Creatinine Ratio 19.8 (12.0-20.0); CO2, Blood 29 mmol/L (21-32); Calcium, Blood 8.9 mg/dL (8.5-10.1); Chloride, Blood 105 mmol/L (98-108); Creatinine, Blood 0.96 mg/dL (0.60-1.20); Globulin, Blood 3.8 g/dL (2.2-4.0); Glomerular Filtration Rate >60 (60-); Glucose, Blood 148 mg/dL (70-99); Potassium, Blood 3.6 mmol/L (3.5-5.5); Sodium, Blood 138 mmol/L (136-145); Total Protein, Blood 7.3 g/dL (6.4-8.2)
== END | disposition home or self-care (01) ==
LOC: LAB SHORT 17:50 → LAB 17:50
DX: I50.9 Heart failure, unspecified (principal)
CPT/HCPCS: 80053; 83880

== ENCOUNTER 2019-06-03 17:19 | Observation (INO) | payer OTHER ==
[~2019-06-03] VITALS: Ht 180.3 cm; Wt 147.4 kg
[~2019-06-03 17:19] MED LIST changes: -AMLO10 PO; -COMBIVENT RESPIM4 GM INH; -Flonase 0.05% N16 GM; -MONT10T PO; -OLAN10 PO
[2019-06-03 18:06] LABS: BASOPHILS ABSOLUTE AUTO 0.02 K/mm3 (0.00-0.23); BASOPHILS PERCENT AUTO 0 % (0-2); EOSINOPHILS ABSOLUTE AUTO 0.17 K/mm3 (0.00-0.68); EOSINOPHILS PERCENT AUTO 2 % (0-6); Hematocrit 41.5 % (37.0-53.0); Hemoglobin 12.9 g/dL (13.5-17.5); IMMATURE GRAN ABSOLUTE AUTO 0.02 K/mm3 (0.00-0.10); IMMATURE GRAN PERCENT AUTO 0 % (0-1); LYMPHOCYTES ABSOLUTE AUTO 1.48 K/mm3 (0.84-5.20); LYMPHOCYTES PERCENT AUTO 17 % (21-46); MONOCYTES ABSOLUTE AUTO 0.49 K/mm3 (0.16-1.47); MONOCYTES PERCENT AUTO 6 % (4-13); Mean Corpuscular HGB 27.4 pg (26.0-34.0); Mean Corpuscular HGB Conc 31.1 g/dL (31.5-36.5); Mean Platelet Volume 12.7 fL (9.1-12.4); NEUTROPHILS ABSOLUTE AUTO 6.36 K/mm3 (1.96-9.15); NEUTROPHILS PERCENT AUTO 75 % (41-73); Platelet Count 150 K/mm3 (150-400); RDW Coefficient Variation 14.7 % (11.7-14.2); RDW Standard Deviation 47.9 fL (35.1-46.3); White Blood Cell Count 8.54 K/mm3 (4.00-11.30)
[2019-06-03 18:14] LABS: Mean Corpuscular Volume 88 fL (80-100)
[2019-06-03 18:22] LABS: Alanine Aminotransfer (ALT/SGP 29 U/L (12-78); Albumin, Blood 3.1 g/dL (3.4-5.0); Albumin/Globulin Ratio 0.9 (0.8-1.8); Alk Phos 61 U/L (50-136); Anion Gap 5 mmol/L (6-16); Aspartate Aminotrans (AST/SGOT 15 U/L (12-37); Bilirubin, Total 0.2 mg/dL (0.1-1.0); Blood Urea Nitrogen 16 mg/dL (8-24); Bun/Creatinine Ratio 17.5 (12.0-20.0); CO2, Blood 28 mmol/L (21-32); Calcium, Blood 8.7 mg/dL (8.5-10.1); Chloride, Blood 109 mmol/L (98-108); Creatinine, Blood 0.92 mg/dL (0.60-1.20); Globulin, Blood 3.6 g/dL (2.2-4.0); Glomerular Filtration Rate >60 (60-); Glucose, Blood 174 mg/dL (70-99); Potassium, Blood 3.7 mmol/L (3.5-5.5); Sodium, Blood 142 mmol/L (136-145); Total Protein, Blood 6.7 g/dL (6.4-8.2); Troponin I <0.015 ng/mL (0.000-0.040)
--- NOTE | 2019-06-03 23:30 | NUR ---
ADMISSION NOTE PT ARRIVED TO UNIT AT 2140 VIA STRECTHER, AMBULATES INDEPENDENTLY TO BED. PT DENIES ANY CHEST PAIN OR DISCOMFORT AT THIS TIME, DENIES SOB. RESP E/U ON RA. PT TAKES SELF TO BR. ORIENTED TO ROOM, UNIT, AND CALL LIGHT. TELE IN PLACE SHOWS NSR @ 74 BPM. ASSUMING CARE OF PT.
--- NOTE | 2019-06-04 06:07 | NUR ---
SHIFT SUMMARY PT HAS NOT HAD ANY CP OR SYNCOPAL EPISODES SINCE ARRIVING TO THE FLOOR. A&O X 4, INDEPENDENT IN RM. TELE IN PLACE; NSR @ 74 BPM PER TIN FLIPPER. SERIAL TROPONINS REMAIN NEG. CPAP AT NIGHT, LS DIM T/O. NO OTHER CHANGES TO REPORT, WILL CONT TO MONITOR AND PROVIDE CARE UNTIL PRESUMED BY ONCOMING RN.
--- NOTE | 2019-06-04 09:54 | NUR ---
CALLED [facility] TO SCHEDULE PT POST HOSPITAL FOLLOW UP APPOINTMENT. SPOKE TO JACKIE WHO ARRANGES POST HOSPITAL APPOINTMENTS. FOLLOW UP APPOINTMENT SCHEDULED FOR Jun AT 0900. THEY WILL BE CALLING PT LATER TODAY TO DISCUSS TRANSITION OF CARE.
--- NOTE | 2019-06-04 10:25 | NUR ---
CALLED DR VILLEGAS OFFICE TO SCHEDULE FOLLOW UP APPOINTMENT SPOKE TO KECIA. PROVIDED WITH PT CONTACT INFORMATION, THEY WILL CALL PT BY FRIDAY WITH AN APPOINTMENT TIME AND DATE.
--- NOTE | 2019-06-04 11:40 | NUR ---
DISCHARGE NOTE- PT WAS GIVEN VERBAL AND WRITTEN DISCHARGE INSTRUCTIONS AND ACKNOWLEDGED UNDERSTANDING OF THEM. FOLLOW UP APPOINTMENTS SCHEDULED AND PT IS AWARE OF TIME AND DATE. IV AND TELE DC'D PRIOR TO DISCHARGE. PT WAS ESCORTED OUT VIA WC BY THE CURRENCY MACHINE OPERATOR TO THE TAXI THAT WILL TAKE THE PT TO HIS CAR AT HOME DEPOT. PT RECIEVED CONTACT INFO TO CALL IF QUESTIONS ARRISE LATER TODAY.
[2019-08-06] MEDS ORDERED: Prednisone20 MG PO (19:39)
== END 2019-06-04 11:28 | disposition home or self-care (01) ==
LOC: ER 17:19 → MEDS 17:20
PROVIDERS: Emergency Medicine; ADMIT Hospitalist
DX: R55 Syncope and collapse (principal); T46.3X5A Adverse effect of coronary vasodilators, initial encounter; R07.9 Chest pain, unspecified; I48.91 Unspecified atrial fibrillation; I11.0 Hypertensive heart disease with heart failure; I50.32 Chronic diastolic (congestive) heart failure; G47.33 Obstructive sleep apnea (adult) (pediatric); E66.01 Morbid (severe) obesity due to excess calories; Z87.891 Personal history of nicotine dependence; Z91.048 Other nonmedicinal substance allergy status; Z91.09 Other allergy status, other than to drugs and biological substances; Z88.8 Allergy status to other drugs, medicaments and biological substances; Z79.01 Long term (current) use of anticoagulants; Z79.51 Long term (current) use of inhaled steroids; Z79.82 Long term (current) use of aspirin; Z79.899 Other long term (current) drug therapy; Z68.42 Body mass index [BMI] 45.0-49.9, adult
CPT/HCPCS: 71046; 80053; 83690; 84484; 85025; 93005; 93010; 94640; 94660; 94762; 99285-25; A9270; G0378

== ENCOUNTER 2019-06-18 09:06 | Emergency (ER) | payer OTHER ==
[~2019-06-18] VITALS: Ht 180.3 cm; Wt 154.2 kg
[2019-06-18 09:37] LABS: BASOPHILS ABSOLUTE AUTO 0.03 K/mm3 (0.00-0.23); BASOPHILS PERCENT AUTO 0 % (0-2); EOSINOPHILS ABSOLUTE AUTO 0.25 K/mm3 (0.00-0.68); EOSINOPHILS PERCENT AUTO 3 % (0-6); Hematocrit 44.2 % (37.0-53.0); Hemoglobin 13.9 g/dL (13.5-17.5); IMMATURE GRAN ABSOLUTE AUTO 0.02 K/mm3 (0.00-0.10); IMMATURE GRAN PERCENT AUTO 0 % (0-1); LYMPHOCYTES ABSOLUTE AUTO 2.29 K/mm3 (0.84-5.20); LYMPHOCYTES PERCENT AUTO 27 % (21-46); MONOCYTES ABSOLUTE AUTO 0.69 K/mm3 (0.16-1.47); MONOCYTES PERCENT AUTO 8 % (4-13); Mean Corpuscular HGB 27.3 pg (26.0-34.0); Mean Corpuscular HGB Conc 31.4 g/dL (31.5-36.5); Mean Corpuscular Volume 87 fL (80-100); Mean Platelet Volume 11.6 fL (9.1-12.4); NEUTROPHILS ABSOLUTE AUTO 5.12 K/mm3 (1.96-9.15); NEUTROPHILS PERCENT AUTO 61 % (41-73); Platelet Count 187 K/mm3 (150-400); RDW Coefficient Variation 15.5 % (11.7-14.2); Red Blood Cell Count 5.09 M/mm3 (4.30-5.90)
[2019-06-18 09:50] LABS: Troponin I <0.015 ng/mL (0.000-0.040)
[2019-06-18 09:51] LABS: Alanine Aminotransfer (ALT/SGP 34 U/L (12-78); Albumin, Blood 3.3 g/dL (3.4-5.0); Albumin/Globulin Ratio 0.9 (0.8-1.8); Alk Phos 66 U/L (50-136); Anion Gap 8 mmol/L (6-16); Aspartate Aminotrans (AST/SGOT 12 U/L (12-37); Bilirubin, Total 0.3 mg/dL (0.1-1.0); Blood Urea Nitrogen 13 mg/dL (8-24); Bun/Creatinine Ratio 14.3 (12.0-20.0); CO2, Blood 25 mmol/L (21-32); Calcium, Blood 8.4 mg/dL (8.5-10.1); Chloride, Blood 108 mmol/L (98-108); Creatinine, Blood 0.91 mg/dL (0.60-1.20); Globulin, Blood 3.7 g/dL (2.2-4.0); Glomerular Filtration Rate >60 (60-); Glucose, Blood 142 mg/dL (70-99); Potassium, Blood 3.8 mmol/L (3.5-5.5); Sodium, Blood 141 mmol/L (136-145)
[2019-06-18 10:16] LABS: PCO2 Arterial 42.8 mmHg (35-45); PO2 Arterial 64.9 mmHg (80-100); pH Blood Arterial 7.37 (7.35-7.45)
[2019-08-06] MEDS ORDERED: Prednisone20 MG PO (19:39)
== END 2019-06-18 11:15 | disposition home or self-care (01) ==
LOC: ER 09:06
PROVIDERS: Emergency Medicine
DX: J45.901 Unspecified asthma with (acute) exacerbation (principal); I10 Essential (primary) hypertension; I48.91 Unspecified atrial fibrillation; I25.2 Old myocardial infarction; G47.30 Sleep apnea, unspecified; Z79.82 Long term (current) use of aspirin; Z79.899 Other long term (current) drug therapy; Z88.8 Allergy status to other drugs, medicaments and biological substances; Z91.048 Other nonmedicinal substance allergy status
CPT/HCPCS: 36600; 71046; 80053; 82803; 83880; 84484; 85025; 93005; 93010; 99285-25

== ENCOUNTER 2019-07-25 14:36 | Emergency (ER) | payer OTHER ==
[~2019-07-25] VITALS: Ht 180.3 cm; Wt 104.3 kg
[2019-07-25 15:02] LABS: BASOPHILS ABSOLUTE AUTO 0.02 K/mm3 (0.00-0.23); BASOPHILS PERCENT AUTO 0 % (0-2); EOSINOPHILS ABSOLUTE AUTO 0.19 K/mm3 (0.00-0.68); EOSINOPHILS PERCENT AUTO 2 % (0-6); Hematocrit 48.1 % (37.0-53.0); IMMATURE GRAN ABSOLUTE AUTO 0.02 K/mm3 (0.00-0.10); IMMATURE GRAN PERCENT AUTO 0 % (0-1); LYMPHOCYTES ABSOLUTE AUTO 1.52 K/mm3 (0.84-5.20); LYMPHOCYTES PERCENT AUTO 17 % (21-46); MONOCYTES ABSOLUTE AUTO 0.66 K/mm3 (0.16-1.47); MONOCYTES PERCENT AUTO 7 % (4-13); Mean Corpuscular HGB 27.4 pg (26.0-34.0); Mean Corpuscular HGB Conc 31.2 g/dL (31.5-36.5); Mean Corpuscular Volume 88 fL (80-100); NEUTROPHILS ABSOLUTE AUTO 6.47 K/mm3 (1.96-9.15); NEUTROPHILS PERCENT AUTO 73 % (41-73); Platelet Count 200 K/mm3 (150-400); RDW Standard Deviation 48.6 fL (35.1-46.3); Red Blood Cell Count 5.47 M/mm3 (4.30-5.90); White Blood Cell Count 8.88 K/mm3 (4.00-11.30)
[2019-07-25 15:23] LABS: Alanine Aminotransfer (ALT/SGP 36 U/L (12-78); Albumin, Blood 3.5 g/dL (3.4-5.0); Albumin/Globulin Ratio 0.9 (0.8-1.8); Alk Phos 64 U/L (50-136); Anion Gap 6 mmol/L (6-16); Aspartate Aminotrans (AST/SGOT 19 U/L (12-37); Bilirubin, Total 0.6 mg/dL (0.1-1.0); Blood Urea Nitrogen 12 mg/dL (8-24); Bun/Creatinine Ratio 14.7 (12.0-20.0); CO2, Blood 26 mmol/L (21-32); Calcium, Blood 8.8 mg/dL (8.5-10.1); Chloride, Blood 109 mmol/L (98-108); Creatinine, Blood 0.82 mg/dL (0.60-1.20); Glomerular Filtration Rate >60 (60-); Glucose, Blood 104 mg/dL (70-99); Potassium, Blood 3.9 mmol/L (3.5-5.5); Sodium, Blood 141 mmol/L (136-145); Total Protein, Blood 7.5 g/dL (6.4-8.2); Troponin I <0.015 ng/mL (0.000-0.040)
[2019-07-25] MEDS ORDERED: AMLO10 PO (15:42)
[2019-07-25] MEDS ORDERED: Flonase 0.05% N16 GM (15:43)
[2019-07-25] MEDS ORDERED: LOSA50 PO (15:44)
[2019-07-25] MEDS ORDERED: COMBIVENT RESPIM4 GM INH (15:44)
[2019-07-25] MEDS ORDERED: OLAN10 PO (15:45)
[2019-07-25] MEDS ORDERED: MONT10T PO (15:45)
[2019-08-06] MEDS ORDERED: Prednisone20 MG PO (19:39)
== END 2019-07-25 17:07 | disposition home or self-care (01) ==
LOC: ER 14:36
PROVIDERS: Physician Assistant
DX: I48.20 Chronic atrial fibrillation, unspecified (principal); I10 Essential (primary) hypertension; I25.2 Old myocardial infarction; R60.0 Localized edema; Z88.8 Allergy status to other drugs, medicaments and biological substances; Z91.048 Other nonmedicinal substance allergy status; Z79.899 Other long term (current) drug therapy; Z79.01 Long term (current) use of anticoagulants; Z79.82 Long term (current) use of aspirin
CPT/HCPCS: 36415; 71046; 80053; 83690; 83880; 84484; 85025; 93005; 93010; 99284-25

== ENCOUNTER 2019-08-04 17:11 | Emergency (ER) | payer OTHER ==
[~2019-08-04] VITALS: Ht 180.3 cm; Wt 146.5 kg
[~2019-08-04 17:11] MED LIST changes: +AMLO10 PO; +COMBIVENT RESPIM4 GM INH; +Flonase 0.05% N16 GM; +MONT10T PO; +OLAN10 PO
[2019-08-04 17:40] LABS: BASOPHILS ABSOLUTE AUTO 0.03 K/mm3 (0.00-0.23); BASOPHILS PERCENT AUTO 0 % (0-2); EOSINOPHILS PERCENT AUTO 1 % (0-6); Hematocrit 48.1 % (37.0-53.0); IMMATURE GRAN ABSOLUTE AUTO 0.03 K/mm3 (0.00-0.10); IMMATURE GRAN PERCENT AUTO 0 % (0-1); LYMPHOCYTES ABSOLUTE AUTO 2.06 K/mm3 (0.84-5.20); LYMPHOCYTES PERCENT AUTO 20 % (21-46); MONOCYTES ABSOLUTE AUTO 0.79 K/mm3 (0.16-1.47); MONOCYTES PERCENT AUTO 8 % (4-13); Mean Corpuscular HGB 27.5 pg (26.0-34.0); Mean Corpuscular HGB Conc 31.2 g/dL (31.5-36.5); Mean Corpuscular Volume 88 fL (80-100); Mean Platelet Volume 12.2 fL (9.1-12.4); NEUTROPHILS ABSOLUTE AUTO 7.47 K/mm3 (1.96-9.15); NEUTROPHILS PERCENT AUTO 71 % (41-73); Platelet Count 213 K/mm3 (150-400); RDW Coefficient Variation 15.2 % (11.7-14.2); RDW Standard Deviation 48.5 fL (35.1-46.3); Red Blood Cell Count 5.45 M/mm3 (4.30-5.90); White Blood Cell Count 10.48 K/mm3 (4.00-11.30)
[2019-08-04 18:30] LABS: Alanine Aminotransfer (ALT/SGP 39 U/L (12-78); Albumin, Blood 3.6 g/dL (3.4-5.0); Alk Phos 80 U/L (50-136); Anion Gap 7 mmol/L (6-16); Aspartate Aminotrans (AST/SGOT 15 U/L (12-37); Bilirubin, Total 0.4 mg/dL (0.1-1.0); Blood Urea Nitrogen 21 mg/dL (8-24); Bun/Creatinine Ratio 16.9 (12.0-20.0); CO2, Blood 27 mmol/L (21-32); Calcium, Blood 9.3 mg/dL (8.5-10.1); Chloride, Blood 105 mmol/L (98-108); Creatinine, Blood 1.24 mg/dL (0.60-1.20); Globulin, Blood 3.7 g/dL (2.2-4.0); Glomerular Filtration Rate >60 (60-); Glucose, Blood 103 mg/dL (70-99); Potassium, Blood 3.8 mmol/L (3.5-5.5); Sodium, Blood 139 mmol/L (136-145); Total Protein, Blood 7.3 g/dL (6.4-8.2)
[2019-08-06] MEDS ORDERED: Prednisone20 MG PO (19:39)
== END 2019-08-04 19:10 | disposition home or self-care (01) ==
LOC: ER 17:11
PROVIDERS: Emergency Medicine
DX: I11.0 Hypertensive heart disease with heart failure (principal); I50.32 Chronic diastolic (congestive) heart failure; R53.82 Chronic fatigue, unspecified; E66.01 Morbid (severe) obesity due to excess calories; G47.30 Sleep apnea, unspecified; Z88.8 Allergy status to other drugs, medicaments and biological substances; Z91.048 Other nonmedicinal substance allergy status; Z79.899 Other long term (current) drug therapy; Z79.82 Long term (current) use of aspirin; I25.2 Old myocardial infarction; I48.91 Unspecified atrial fibrillation
CPT/HCPCS: 71046; 80053; 84484; 85025; 93005; 93010; 99284-25

== ENCOUNTER 2019-08-08 22:18 | Observation (INO) | payer OTHER ==
[~2019-08-08] VITALS: Ht 180.3 cm; Wt 145.5 kg
[~2019-08-08 22:18] MED LIST changes: +Lipitor20 MG PO; +METO100ER PO; -Metoprolol Tar100 MG PO; -Micro-K10 MEQ PO; +POTA10T PO; +SPIRIVA RESPIMAT4 GM INH; -TIOT18 INH
[2019-08-08 22:55] LABS: BASOPHILS ABSOLUTE AUTO 0.03 K/mm3 (0.00-0.23); BASOPHILS PERCENT AUTO 0 % (0-2); EOSINOPHILS ABSOLUTE AUTO 0.06 K/mm3 (0.00-0.68); EOSINOPHILS PERCENT AUTO 0 % (0-6); Hematocrit 50.8 % (37.0-53.0); Hemoglobin 15.7 g/dL (13.5-17.5); IMMATURE GRAN ABSOLUTE AUTO 0.07 K/mm3 (0.00-0.10); IMMATURE GRAN PERCENT AUTO 0 % (0-1); LYMPHOCYTES ABSOLUTE AUTO 1.45 K/mm3 (0.84-5.20); LYMPHOCYTES PERCENT AUTO 9 % (21-46); MONOCYTES ABSOLUTE AUTO 0.69 K/mm3 (0.16-1.47); MONOCYTES PERCENT AUTO 4 % (4-13); Mean Corpuscular HGB 27.6 pg (26.0-34.0); Mean Corpuscular HGB Conc 30.9 g/dL (31.5-36.5); Mean Corpuscular Volume 89 fL (80-100); Mean Platelet Volume 12.3 fL (9.1-12.4); NEUTROPHILS ABSOLUTE AUTO 13.84 K/mm3 (1.96-9.15); NEUTROPHILS PERCENT AUTO 86 % (41-73); Platelet Count 240 K/mm3 (150-400); RDW Coefficient Variation 15.4 % (11.7-14.2); Red Blood Cell Count 5.69 M/mm3 (4.30-5.90); White Blood Cell Count 16.14 K/mm3 (4.00-11.30)
[2019-08-08 23:10] LABS: Anion Gap 6 mmol/L (6-16); Blood Urea Nitrogen 25 mg/dL (8-24); Bun/Creatinine Ratio 21.6 (12.0-20.0); CO2, Blood 24 mmol/L (21-32); Calcium, Blood 8.3 mg/dL (8.5-10.1); Chloride, Blood 110 mmol/L (98-108); Creatinine, Blood 1.16 mg/dL (0.60-1.20); Glomerular Filtration Rate >60 (60-); Glucose, Blood 204 mg/dL (70-99); Potassium, Blood 5.1 mmol/L (3.5-5.5); Sodium, Blood 140 mmol/L (136-145)
--- NOTE | 2019-08-09 05:40 | NUR ---
SHIFT SUMMARY PT NEW ED ADMIT THIS AM. PLEASANT AND COOPERATIVE. PT DENIES ANY DIZZINESS OR LIGHT HEADEDNESS. REPORTS JUST "FEELING WEAK". PT DOES REPORT SOME TINGLING TO HIS LEFT HAND. TELEMETRY PLACED, PT IN CHRONIC AFIB IN THE 'S. PT AMBULATED WELL TO THE RESTROOM WITH NO ISSUES. LARGE AMOUNT OF SNACKS REQUESTED BY PT. VITAL SIGNS STABLE. PT RESTING IN BED AT THIS TIME. WILL CONTINUE TO MONITOR.
[2019-08-09] MEDS ORDERED: ALBU90OI INH (12:06)
[2019-08-09] MEDS ORDERED: Aspir 8181 MG PO (12:13)
[2019-08-09] MEDS ORDERED: ELIQUIS5 MG PO (12:18)
[2019-08-09] MEDS ORDERED: PRED20 PO (12:19)
--- NOTE | 2019-08-09 14:29 | NUR ---
NOTIFIED PATIENT HAS HAD DIARRHEA X 4 DAYS. HAVE SAMPLE, DOES NOT SMELL LIKE C-DIFF, BROWN LIQUID. PER OK TO SEND.
--- NOTE | 2019-08-09 14:48 | NUR ---
ALERT. ORIENTED. STEADY GAIT IN ROOM. HAD SHOWER WITHOUT ASSISTANCE. UNLABORED RESPIRATIONS. TELE ON AND SHOWING CHRONIC A-FIB. HX N/T LEFT ARM TIMES FEW WEEKS PER PATIENT.IV X 2 PATENT.SECOND TROPONIN NEGATIVE. THIRD TO BE DRAWN. HOSPITALIST DISCUSSED W/PATIENT POSSIBILITY OF NOT DRIVING TILL HE IS BETTER. PATIENT UPSET ABOUT THIS EVEN THOUGH HE STS HE ALMOST HAD A HEAD-ON NATALIE YESTERDAY WHILE DRIVING. PALLIATIVE AND SPIRITUAL CARE ORDERED PATIENT STS-"NO ONE TO TALK TO ABOUT PASSING 03/31." PER CARE MANAGEMENT PATIENT HAS BEEN GIVEN MULTIPLE RESOURCES IN THE COMMUNITY WHEN HE WAS IN HER THE LAST TIME. DENIES PAIN AT THIS TIME. WCTM.
--- NOTE | 2019-08-09 15:08 | NUR ---
RN request to see Rory to offer housing counselor and comfort. Several attmepts at visit today. At each attempt, Rory was on his cell phone and waived me out of room. I will continue to attempt to see Rory in coming days.
--- NOTE | 2019-08-09 16:43 | NUR ---
LET KNOW PATIENT HEART RATE BETWEEN 100-110 AND BLD PRESS 140'S OVER HIGH 90'S. PATIENT SEEMS TO ALSO BE HIGH ANXIETY. WANTED FULL BODY SCAN. DISCUSSED W/PATIENT AND WHY WOULD NOT BE ABLE TO HAVE IT. ALSO ABOUT B.P. MEDS AND POSSIBLY INTRODUCING THEM LITTLE AT A TIME. DR. RODRIGUEZ TO ORDER TOPROL W/PARAMETERS.
--- NOTE | 2019-08-10 04:19 | NUR ---
SHIFT SUMMARY PATIENT IS NO LONGER ON ISOLATION PRECAUTIONS HIS STOOL CULTURE HAS COME BACK NEGATIVE FOR C-DIFF. BOTH OF HIS IV SITES ARE PATENT AND FLUSH WITH NO ISSUES. HE'S BEEN IN BED MOST OF THE SHIFT AND IS ABLE TO SELF AMBULATE TO THE BATHROOM WHEN NEEDED. PATIENT ABLE TO SLEEP MOST OF THE NIGHT. BED IN LOWEST POSITION WITH WHEELS LOCKED. CALL LIGHT WITHIN REACH. REPORT GIVEN TO NILESH WILEY.
--- NOTE | 2019-08-10 10:00 | NUR ---
Mr. Castellon told me he was tired this morning. We spoke briefly about the loss of his . He asked about bereavement services and I provided information on grief support groups and one-on-one counseling. He would like to sleep and asked that I return this afternoon.
--- NOTE | 2019-08-10 17:13 | NUR ---
ALERT. ORIENTED. PLEASANT. ABLE TO USE BATHROOM WITHOUT DIFFICULTY. STS LITTLE DIZZY WHEN GOING TO BATHROOM, BUT WHEN OBSERVED HAS STEADY GAIT. TELE ON. DENIES; C.P, N/V. ABLE TO MAKE NEEDS KNOWN. TM
--- NOTE | 2019-08-10 18:18 | NUR ---
[facility] This afternoon, Rory was ready for conversation and companionship. He and his recently moved to [place] from [place]. She suddenly at home in March. Rory has no family/friends local, and those he had in [place] are not helpful. He was tearful throughout conversation and alternated between wanting to talk about his 's passing and saying it was too difficult to talk about. Regardless, he responded well to gentle director of group counseling program and admitted he would like director of group counseling program post discharge. I provided options. He was raised Nondenominational but has not had a realtionship with God for decades. He declined prayer. Rory admits to me that he is planning on traveling to [facility] to a woman he met recently on the internet. He does not want to feel lonliness. He finds it unbearable. Rory was personable and pleasant. He expressed gratitude for the care he has received while hospitalized. I suspect his isolation/lonliness/grief is contributing to his physical issues. He will benefit from continued director of group counseling program. I will continue to director of group counseling program Rory in coming days.
--- NOTE | 2019-08-11 03:11 | NUR ---
Alert and oriented. Has been resting quietly with few interruptions since having snack at HS. Med tele continues - A-fib. No noted acute distress. Call light in reach. Will continue to monitor.
--- NOTE | 2019-08-11 11:57 | NUR ---
DID LEISURELY WALK AROUND MEDICAL FLOOR W/GAITBELT ON. TALKING. HEART RATE WENT UP TO 120'S MIDWAY INTO WALK. WHEN BACK TO ROOM AND SAT DOWN SATS 92% OFF OXYGEN AND HEART RATE ALMOST IMMEDIATELY TO 90'S. PATIENT STS "FELT OK, BUT COUPLE TIMES HAD TO LOOK UP AND THEN DOWN TO FEEL BETTER." STS WAS WALKING SLOWER THAN DOES AT HOME. WHILE IN ROOM TALKS ABOUT WANTING HELP FOR; CLEANING, COOKING, GETTING MEALS AND MEDS ORGANIZED. ADVISED OF RESULTS.
--- NOTE | 2019-08-11 13:25 | NUR ---
Pt. is doing well pastoral visit provided.
--- NOTE | 2019-08-11 16:51 | NUR ---
Spiritual Care routine visit: Provided breavement guidance counselor and education to good effect. Rory verbalizes understanding of the need to express sorrow with loss of . He also agrees that continued guidance counselor will be helpful. Explained the benefits of moving through grief of first spouse before moving on to next relationship. He agrees, but tells me he has "already bought a wedding ring" for his "lady-friend" in [place]. He spoke excitedly about traveling there this month and his plans for weddings both here and there. I encouraged caution and spending time with new love before stepping into marriage. Rory kindly disagrees. I will remain available to guidance counselor and comfort in coming days.
--- NOTE | 2019-08-11 17:07 | NUR ---
ALERT. ORIENTED. SECOND LEISURELY WALK AROUND MEDICAL FLOOR W/ NO; SOB,DIZZINESS, C.P. AND PER PCU TECH HEART RATE GOT UP TO 108. DISCUSSED WITH PATIENT POSSIBLY GOING HOME TOMORROW WITH MEDS BEING ADJUSTED AND FOLLOWING UP WITH HIS PCP. TALKS ABOUT COMING IN MULTIPLE TIMES FOR SAME THING AND"WHY DIDN'T GET ADMITTED THE FIRST TIME." DISCUSSED ABOVE AGAIN AND THE FACT THAT [facility] SCENARIO WAS RULED OUT--HEART- AND THAT HE NEEDED TO F/U W/PCP FOR FURTHER TESTING. PATIENT SEEMS TO UNDERSTAND EXPLANATION, BUT ASKS SAME QUESTIONS A LITTLE DIFFERENTLY. TELE ON. UNLABORED RESPIRATION EVEN WHEN WALKING. WCTM.
--- NOTE | 2019-08-12 01:18 | NUR ---
Med tele called a few times with pt HR reportedly dropping to 30's and 40's. Upon arrival at room, pt asymptomatic each time. Laughed when HR discussed. VS taken. 80's - see doc flow sheets for details. Will continue to monitor. - JCRN
--- NOTE | 2019-08-12 03:47 | NUR ---
HR fluctuated at intervals this shift - med tele reported dropping to the 30's and 40's, however, upon assessment in room, pt denied distress and was laughing at times as well. O2 per C-Pap due to noted sleep apnea. Resting quielty at this time. Call light in reach. No noted distress at this writing.
[2019-08-12 11:50] LABS: Alanine Aminotransfer (ALT/SGP 34 U/L (12-78); Albumin, Blood 3.2 g/dL (3.4-5.0); Albumin/Globulin Ratio 0.9 (0.8-1.8); Alk Phos 68 U/L (50-136); Anion Gap 7 mmol/L (6-16); Aspartate Aminotrans (AST/SGOT 12 U/L (12-37); Bilirubin, Total 0.2 mg/dL (0.1-1.0); Blood Urea Nitrogen 20 mg/dL (8-24); Bun/Creatinine Ratio 21.4 (12.0-20.0); CO2, Blood 27 mmol/L (21-32); Calcium, Blood 8.7 mg/dL (8.5-10.1); Chloride, Blood 107 mmol/L (98-108); Creatinine, Blood 0.94 mg/dL (0.60-1.20); Globulin, Blood 3.7 g/dL (2.2-4.0); Glomerular Filtration Rate >60 (60-); Glucose, Blood 123 mg/dL (70-99); Potassium, Blood 3.5 mmol/L (3.5-5.5); Sodium, Blood 141 mmol/L (136-145); Total Protein, Blood 6.9 g/dL (6.4-8.2)
--- NOTE | 2019-08-12 13:17 | NUR ---
Pt.is in bed resting reports doing well ofered prayers and support
--- NOTE | 2019-08-12 16:01 | NUR ---
Initial Visit: Palliative Care Consult for Goals of Care. Prior to entering Pt's room, overheard conversation Pt was having on the phone. Pt tells person he is speaking with that he is in the hospital due to heart attack. Pt is A&O and reports 1/10 pain in his right side. Pt denies SOB and nausea at this time. Pt does report significant anxiety due to recent loss of his . Engaged in therapeutic discussion regarding goals of care. Pt reports living alone with recent loss of his in March of this year. Pt reports moving up to [place] from [place] and living with friends of his until they were able to get there own place. Shortly after moving into their own place his suddenly . Pt reports his family and friends live in [place]. Listened as Pt expresses feeling safe and secure here at the hospital. He states he does not want to go back home where his . He states plans of going to the [facility] to bring home a woman to . Suggested getting a room mate to help with companionship and Pt dismisses this idea. Suggested counseling and Pt is agreeable. Pt reports no other concerns at this time. Spoke with associate financial planner Rosa earlier this AM. Rosa reports plan to make an appointment for counseling upon Pt discharge. Spoke with bedside nurse Carlos Alberto prior to entering Pt's room and discussed case. Palliative Care will remain available.
--- NOTE | 2019-08-12 16:33 | NUR ---
SHIFT SUMMARY: PT HAS BEEN A/O X 4 WITH NO C/O PAIN. HE CONTINUES TO BE A X 1 ASSIST FOR TRANSFERS AND IN CONT OF B/B. PER CUSTOMER PROGRAM MANAGER HIS RHYTHM HAS BEEN IN A-FIB WITH A PULSE IN THE 90'S AND PT IS A-SYMPTOMATIC. PALLIATIVE CARE CAME TO VISIT PT TODAY ALONG WITH A VOLUNTEER FOR A PRAYER. PT HAS A GOOD APPETITE AND HAS BEEN RESTING IN BED THROUGHOUT THE DAY. HE IS ABLE TO MAKE HIS NEEDS KNOWN AND USES THE CALL LIGHT FOR HELP WHEN NEEDED.
--- NOTE | 2019-08-13 07:20 | NUR ---
SHIFT SUMMARY PT A/O INDEPENDENT IN ROOM. NO C/O PAIN. WAS CRYING AT TIME OF MY ASSESSMENT AND ASKED IF HE WANTED TO TALK ABOUT IT BUT HE DECLINED. NO BRADYCARDIA OR S/S. WORE CPAP WHEN SLEEPING. HE WAS ABLE TO SLEEP ON AND OFF T/O NIGHT. CALL LIGHT IN REACH.
[2019-08-13] MEDS ORDERED: METO25ER PO (16:40)
--- NOTE | 2019-08-13 18:46 | NUR ---
PATIENT D/C'D TO HOME. RX MEDICATIONS FAXED TO [facility]. D/C INSTRUCTIONS AND EDUCATION DISCUSSED WITH PATIENT AND COPY PROVIDED. DR. CABRAL'S OFFICE TO CALL PATIENT WITH FOLLOW UP APPOINTMENT. PATIENT DENIES ANY FURTHER QUESTIONS OR CONCERNS.
== END 2019-08-13 18:40 | disposition home or self-care (01) ==
LOC: ER 22:18 → MEDS 22:19
PROVIDERS: Emergency Medicine; Internal Medicine; ADMIT Internal Medicine
DX: R00.1 Bradycardia, unspecified (principal); I95.9 Hypotension, unspecified; T44.7X5A Adverse effect of beta-adrenoreceptor antagonists, initial encounter; T46.1X5A Adverse effect of calcium-channel blockers, initial encounter; I48.20 Chronic atrial fibrillation, unspecified; I11.0 Hypertensive heart disease with heart failure; I50.32 Chronic diastolic (congestive) heart failure; D72.829 Elevated white blood cell count, unspecified; G47.33 Obstructive sleep apnea (adult) (pediatric); E66.01 Morbid (severe) obesity due to excess calories; E11.9 Type 2 diabetes mellitus without complications; I25.10 Atherosclerotic heart disease of native coronary artery without angina pectoris; J44.9 Chronic obstructive pulmonary disease, unspecified; Z87.891 Personal history of nicotine dependence; Z88.8 Allergy status to other drugs, medicaments and biological substances; Z79.01 Long term (current) use of anticoagulants; Z99.89 Dependence on other enabling machines and devices; Z91.041 Radiographic dye allergy status; Z79.82 Long term (current) use of aspirin; Z79.899 Other long term (current) drug therapy; Z68.30 Body mass index [BMI] 30.0-30.9, adult; J98.11 Atelectasis
CPT/HCPCS: 36415; 71045; 80048; 80053; 82947; 83036; 84484; 85014; 85018; 85025; 87493; 93005; 93010; 93308; 93321; 94640; 94660; 94762; 96360; 96361; 99285-25; J1815; J7030; J7512

== ENCOUNTER 2019-08-25 14:21 | Emergency (ER) | payer OTHER ==
[~2019-08-25] VITALS: Ht 180.3 cm; Wt 146.5 kg
[~2019-08-25 14:21] MED LIST changes: +Aspir 8181 MG PO; +METO25ER PO; +PRED20 PO
[2019-08-25 15:25] LABS: BASOPHILS ABSOLUTE AUTO 0.02 K/mm3 (0.00-0.23); BASOPHILS PERCENT AUTO 0 % (0-2); EOSINOPHILS ABSOLUTE AUTO 0.15 K/mm3 (0.00-0.68); EOSINOPHILS PERCENT AUTO 2 % (0-6); Hematocrit 47.8 % (37.0-53.0); Hemoglobin 15.2 g/dL (13.5-17.5); IMMATURE GRAN ABSOLUTE AUTO 0.03 K/mm3 (0.00-0.10); IMMATURE GRAN PERCENT AUTO 0 % (0-1); LYMPHOCYTES ABSOLUTE AUTO 1.34 K/mm3 (0.84-5.20); LYMPHOCYTES PERCENT AUTO 15 % (21-46); MONOCYTES ABSOLUTE AUTO 0.54 K/mm3 (0.16-1.47); MONOCYTES PERCENT AUTO 6 % (4-13); Mean Corpuscular HGB 27.5 pg (26.0-34.0); Mean Corpuscular HGB Conc 31.8 g/dL (31.5-36.5); Mean Corpuscular Volume 86 fL (80-100); Mean Platelet Volume 12.5 fL (9.1-12.4); NEUTROPHILS ABSOLUTE AUTO 6.71 K/mm3 (1.96-9.15); NEUTROPHILS PERCENT AUTO 77 % (41-73); Platelet Count 169 K/mm3 (150-400); RDW Coefficient Variation 15.2 % (11.7-14.2); RDW Standard Deviation 48.1 fL (35.1-46.3); Red Blood Cell Count 5.53 M/mm3 (4.30-5.90); White Blood Cell Count 8.79 K/mm3 (4.00-11.30)
[2019-08-25 15:39] LABS: Alanine Aminotransfer (ALT/SGP 40 U/L (12-78); Albumin, Blood 3.5 g/dL (3.4-5.0); Albumin/Globulin Ratio 0.9 (0.8-1.8); Alk Phos 76 U/L (50-136); Anion Gap 8 mmol/L (6-16); Aspartate Aminotrans (AST/SGOT 18 U/L (12-37); Bilirubin, Total 0.6 mg/dL (0.1-1.0); Blood Urea Nitrogen 12 mg/dL (8-24); Bun/Creatinine Ratio 13.1 (12.0-20.0); CO2, Blood 23 mmol/L (21-32); Calcium, Blood 8.8 mg/dL (8.5-10.1); Chloride, Blood 111 mmol/L (98-108); Creatinine, Blood 0.92 mg/dL (0.60-1.20); Glomerular Filtration Rate >60 (60-); Glucose, Blood 122 mg/dL (70-99); Potassium, Blood 3.8 mmol/L (3.5-5.5); Sodium, Blood 142 mmol/L (136-145); Total Protein, Blood 7.5 g/dL (6.4-8.2); Troponin I <0.015 ng/mL (0.000-0.040)
[2019-08-25] MEDS ORDERED: Prednisone20 MG PO (16:50)
[2019-09-08] MEDS ORDERED: PROM25S PR (16:39)
[2019-09-08] MEDS ORDERED: ONDA4ODT MM (16:39)
== END 2019-08-25 18:19 | disposition home or self-care (01) ==
LOC: ER 14:21
PROVIDERS: Physician Assistant
DX: J45.909 Unspecified asthma, uncomplicated (principal); I25.2 Old myocardial infarction; I10 Essential (primary) hypertension; J44.9 Chronic obstructive pulmonary disease, unspecified; G47.30 Sleep apnea, unspecified; I48.91 Unspecified atrial fibrillation; Z88.8 Allergy status to other drugs, medicaments and biological substances; Z91.048 Other nonmedicinal substance allergy status; Z79.899 Other long term (current) drug therapy; Z79.82 Long term (current) use of aspirin
CPT/HCPCS: 36415; 71045; 80053; 83880; 84484; 85025; 93005; 93010; 94640; 94664; 99284-25

== ENCOUNTER → 2019-09-09 | Outpatient (CLI) | payer OTHER ==
[~2019-09-09] MED LIST changes: +B-121000 MC2 PO; +ELIQUIS5 M3 PO; +METFORMIN HCL500 M3 PO; +PROM25S PR; +Venlafaxine HCl75 M1 PO
[2019-09-09 15:11] LABS: Campylobacter Sp Not Detected (NOT DETECT); Plesiomonas Shigelloides Not Detected (NOT DETECT)
[2019-09-09 15:12] LABS: Adenovirus F 40/41 Not Detected (NOT DETECT); Astrovirus Not Detected (NOT DETECT); Cryptosporidium Not Detected (NOT DETECT); Cyclospora Cayetanensis Not Detected (NOT DETECT); E. Coli O157 Not Detected (NOT DETECT); Entamoeba Histolytica Not Detected (NOT DETECT); Enteroaggregative E. coli-EAEC Not Detected (NOT DETECT); Enteropathogenic E. coli-EPEC Not Detected (NOT DETECT); Enterotoxigenic E. coli-ETEC Not Detected (NOT DETECT); Giardia Lamblia Not Detected (NOT DETECT); Norovirus GI/GII Not Detected (NOT DETECT); Rotavirus A Not Detected (NOT DETECT); Salmonella Sp Not Detected (NOT DETECT); Sapovirus Not Detected (NOT DETECT); Shiga Toxin-prod E. coli-STEC Not Detected (NOT DETECT); Shigella/Enteroin E. coli-EIEC Not Detected (NOT DETECT); Vibrio Cholerae Not Detected (NOT DETECT); Vibrio Sp Not Detected (NOT DETECT); Yersinia Enterocolitica Not Detected (NOT DETECT)
== END ==
LOC: LAB 05:30 → LAB SHORT 05:30
PROVIDERS: Physician Assistant
DX: R19.7 Diarrhea, unspecified (principal)
CPT/HCPCS: 0097U

== ENCOUNTER 2019-09-18 14:05 | Emergency (ER) | payer OTHER ==
[~2019-09-18] VITALS: Ht 180.3 cm; Wt 136.1 kg
[~2019-09-18 14:05] MED LIST changes: -B-121000 MC2 PO; -ELIQUIS5 M3 PO; -METFORMIN HCL500 M3 PO; -Venlafaxine HCl75 M1 PO
[2019-09-18 15:31] LABS: BASOPHILS ABSOLUTE AUTO 0.02 K/mm3 (0.00-0.23); BASOPHILS PERCENT AUTO 0 % (0-2); EOSINOPHILS ABSOLUTE AUTO 0.06 K/mm3 (0.00-0.68); EOSINOPHILS PERCENT AUTO 1 % (0-6); Hematocrit 47.7 % (37.0-53.0); Hemoglobin 15.1 g/dL (13.5-17.5); IMMATURE GRAN ABSOLUTE AUTO 0.01 K/mm3 (0.00-0.10); IMMATURE GRAN PERCENT AUTO 0 % (0-1); LYMPHOCYTES PERCENT AUTO 18 % (21-46); MONOCYTES PERCENT AUTO 6 % (4-13); Mean Corpuscular HGB 27.4 pg (26.0-34.0); Mean Corpuscular HGB Conc 31.7 g/dL (31.5-36.5); Mean Corpuscular Volume 87 fL (80-100); Mean Platelet Volume 12.5 fL (9.1-12.4); NEUTROPHILS ABSOLUTE AUTO 4.98 K/mm3 (1.96-9.15); NEUTROPHILS PERCENT AUTO 75 % (41-73); Platelet Count 187 K/mm3 (150-400); RDW Coefficient Variation 14.8 % (11.7-14.2); Red Blood Cell Count 5.51 M/mm3 (4.30-5.90); White Blood Cell Count 6.67 K/mm3 (4.00-11.30)
[2019-09-18 15:34] LABS: Source, Urine Clean Catch
[2019-09-18 15:38] LABS: Appearance, Urine Clear (Clear); Bilirubin, Urine Neg (Neg); Blood, Urine 2+ (Neg); Color, Urine Yellow (P-Yellow); Glucose Qualitative, Urine Neg (Neg); Ketones, Urine Neg (Neg); Leukocyte Esterase, Urine Neg (Neg); Nitrite, Urine Neg (Neg); Protein, Urine Neg (Neg); Urobilinogen, Urine NORM (Normal)
[2019-09-18 16:01] LABS: Bacteria Rare /hpf; Red Blood Cells, Urine 0-2 /hpf (0-2); Squamous Epithelial Cells Rare /hpf (Few); White Blood Cells, Urine 0-2 /hpf (0-5)
[2019-09-18 16:11] LABS: Alanine Aminotransfer (ALT/SGP 37 U/L (12-78); Albumin, Blood 3.6 g/dL (3.4-5.0); Albumin/Globulin Ratio 0.9 (0.8-1.8); Alk Phos 63 U/L (50-136); Anion Gap 5 mmol/L (6-16); Aspartate Aminotrans (AST/SGOT 17 U/L (12-37); Bilirubin, Total 0.8 mg/dL (0.1-1.0); Blood Urea Nitrogen 14 mg/dL (8-24); Bun/Creatinine Ratio 17.3 (12.0-20.0); CO2, Blood 26 mmol/L (21-32); Calcium, Blood 9.1 mg/dL (8.5-10.1); Chloride, Blood 111 mmol/L (98-108); Creatinine, Blood 0.81 mg/dL (0.60-1.20); Globulin, Blood 3.9 g/dL (2.2-4.0); Glomerular Filtration Rate >60 (60-); Glucose, Blood 105 mg/dL (70-99); Sodium, Blood 142 mmol/L (136-145); Total Protein, Blood 7.5 g/dL (6.4-8.2); Troponin I <0.015 ng/mL (0.000-0.040)
[2019-09-18 16:37] LABS: Influenza A Negative (NEGATIVE); Influenza B Negative (NEGATIVE)
== END 2019-09-18 17:03 | disposition home or self-care (01) ==
LOC: ER 14:05
PROVIDERS: Emergency Medicine; Physician Assistant
DX: R10.9 Unspecified abdominal pain (principal); R11.2 Nausea with vomiting, unspecified; F43.20 Adjustment disorder, unspecified; I11.0 Hypertensive heart disease with heart failure; I50.9 Heart failure, unspecified; E11.9 Type 2 diabetes mellitus without complications; I25.2 Old myocardial infarction; I48.91 Unspecified atrial fibrillation; J44.9 Chronic obstructive pulmonary disease, unspecified; G47.30 Sleep apnea, unspecified; Z91.048 Other nonmedicinal substance allergy status; Z79.899 Other long term (current) drug therapy; Z79.82 Long term (current) use of aspirin; Z79.51 Long term (current) use of inhaled steroids
CPT/HCPCS: 36415; 71046; 80053; 81001; 82947; 83690; 84484; 85025; 87804; 93005; 93010; 96374; 99284-25; J2405

== ENCOUNTER 2019-10-14 16:36 | Day surgery (SDC) | payer OTHER ==
[~2019-10-14] VITALS: Ht 180.3 cm; Wt 127.3 kg
[2019-10-14 16:50] LABS: Calcium, Ionized (POC) 1.16 mmol/L (1.10-1.46); Chloride (POC) 104 mmol/L (98-108); Creatinine (POC) 0.9 mg/dL (0.8-1.3); Glucose (ISTAT POC) 106 mg/dL (70-99); Hemoglobin (POC) 16.3 g/dL (13.5-17.5); Potassium (POC) 3.3 mmol/L (3.5-5.5); Sodium (POC) 140 mmol/L (135-148); Total CO2 (POC) 22 mmol/L (21-32)
[2019-10-14 17:05] LABS: BASOPHILS ABSOLUTE AUTO 0.02 K/mm3 (0.00-0.23); BASOPHILS PERCENT AUTO 0 % (0-2); EOSINOPHILS ABSOLUTE AUTO 0.09 K/mm3 (0.00-0.68); EOSINOPHILS PERCENT AUTO 1 % (0-6); Hematocrit 48.6 % (37.0-53.0); Hemoglobin 15.6 g/dL (13.5-17.5); IMMATURE GRAN ABSOLUTE AUTO 0.02 K/mm3 (0.00-0.10); IMMATURE GRAN PERCENT AUTO 0 % (0-1); LYMPHOCYTES ABSOLUTE AUTO 1.59 K/mm3 (0.84-5.20); LYMPHOCYTES PERCENT AUTO 22 % (21-46); MONOCYTES ABSOLUTE AUTO 0.49 K/mm3 (0.16-1.47); MONOCYTES PERCENT AUTO 7 % (4-13); Mean Corpuscular HGB 27.5 pg (26.0-34.0); Mean Corpuscular HGB Conc 32.1 g/dL (31.5-36.5); Mean Corpuscular Volume 86 fL (80-100); Mean Platelet Volume 12.4 fL (9.1-12.4); NEUTROPHILS ABSOLUTE AUTO 5.15 K/mm3 (1.96-9.15); NEUTROPHILS PERCENT AUTO 70 % (41-73); Platelet Count 191 K/mm3 (150-400); RDW Coefficient Variation 14.7 % (11.7-14.2); RDW Standard Deviation 46.3 fL (35.1-46.3); Red Blood Cell Count 5.67 M/mm3 (4.30-5.90); White Blood Cell Count 7.36 K/mm3 (4.00-11.30)
[2019-10-14 17:33] LABS: Alanine Aminotransfer (ALT/SGP 38 U/L (12-78); Albumin, Blood 3.8 g/dL (3.4-5.0); Albumin/Globulin Ratio 1.1 (0.8-1.8); Alk Phos 72 U/L (50-136); Anion Gap 10 mmol/L (6-16); Aspartate Aminotrans (AST/SGOT 17 U/L (12-37); Bilirubin, Total 0.9 mg/dL (0.1-1.0); Blood Urea Nitrogen 10 mg/dL (8-24); Bun/Creatinine Ratio 11.6 (12.0-20.0); CO2, Blood 22 mmol/L (21-32); Calcium, Blood 9.1 mg/dL (8.5-10.1); Chloride, Blood 108 mmol/L (98-108); Creatinine, Blood 0.86 mg/dL (0.60-1.20); Globulin, Blood 3.6 g/dL (2.2-4.0); Glomerular Filtration Rate >60 (60-); Glucose, Blood 100 mg/dL (70-99); Potassium, Blood 3.4 mmol/L (3.5-5.5); Sodium, Blood 140 mmol/L (136-145); Total Protein, Blood 7.4 g/dL (6.4-8.2); Troponin I <0.015 ng/mL (0.000-0.040)
[2019-10-14 18:23] LABS: PCO2 Arterial 34.2 mmHg (35-45); PO2 Arterial 88.5 mmHg (80-100); pH Blood Arterial 7.45 (7.35-7.45)
[2019-10-14 18:44] LABS: Source, Urine Catheter
[2019-10-14 18:55] LABS: Blood, Urine 2+ (Neg); Glucose Qualitative, Urine Neg (Neg); Ketones, Urine 4+ (Neg); Leukocyte Esterase, Urine 1+ (Neg); Nitrite, Urine Neg (Neg); Protein, Urine 2+ (Neg); Specific Gravity, Urine 1.025 (1.003-1.022); Urobilinogen, Urine 2+ (Normal)
[2019-10-14 19:05] LABS: U Amphetamine Screen Not Detected; U Barbituate Screen Not Detected; U Benzodiazapine Screen Not Detected; U Buprenorphine Screen Not Detected; U Cannabinoids Screen Not Detected; U Cocaine Screen Not Detected; U Methadone Screen Not Detected; U Methamphetamine Screen Not Detected; U Opiates Screen Not Detected; U Oxycodone Screen Not Detected; U Phencyclidine Screen Not Detected; U Propoxyphene Screen Not Detected
[2019-10-14 19:13] LABS: Appearance, Urine Hazy (Clear); Bilirubin, Urine 2+ (Neg); Color, Urine Amber (P-Yellow); Mucus Heavy (0-Heavy)
[2019-10-14 19:14] LABS: Granular Casts 0-2 /lpf (0); Hyaline Casts 0-2 /lpf (0-2)
[2019-10-14 19:15] LABS: Bacteria Few /hpf; Squamous Epithelial Cells Rare /hpf (Few)
[2019-10-14] MEDS ORDERED: Venlafaxine HCl75 M1 PO (20:06)
[2019-10-14] MEDS ORDERED: METFORMIN HCL500 M3 PO (20:06)
[2019-10-14] MEDS ORDERED: B-121000 MC2 PO (20:07)
[2019-10-14] MEDS ORDERED: ELIQUIS5 M3 PO (20:07)
[2019-10-14 21:33] LABS: CPK Creatine Kinase 52 U/L (39-308)
--- NOTE | 2019-10-15 02:00 | NUR ---
PATIENT IS A NEW ADMIT FROM THE ED. IN WITH EXPRESSIVE DYSPHASIA. MUMBLED SPEECH. AXOX X 3. BARBER CATHETER ON ADMIT FROM ED. TWO PERSON ASSIST WITH GAIT BELT STAND PIVOT TO BS. ON 2L O2 NC ON ADMIT AND RT ABLE TO TAKE OFF STATING 96% ON ROOM AIR. LR INFUSING AT 2OO ML/HR X ONE AND COMPLETED. TELEMETRY PLACED AND INITITAL READING BY PCU CHARGE CLAIR IS A-FIB 86. NPO. DENIES CHEST PAIN, SOB, AND N/V. LOG DECK TENDER MODERATE AND EQUAL. ORIENTED TO ROOM AND CALL LIGHT SYSTEM. WILL CONTINUE TO MONITOR.
--- NOTE | 2019-10-15 05:01 | NUR ---
NOTED IMPROVEMENT IN SPEECH; COMPLETING A FEW SENTENCES WITHOUT MUMBLING. SECOND TROPONIN NEGATIVE. WILL CONTINUE TO MONITOR.
--- NOTE | 2019-10-15 05:06 | NUR ---
SHIFT SUMMARY PATIENT SPEECH IMPROVING LAST HOUR. ABLE TO SPEAK A FEW SENTENCES WITHOUT MUMBLING. REPORTS BARBER CATHETER IS UNCOMFORTABLE. STAT LOCK MOVED FOR COMFORT. BARBER PATENT AND DRAINING. AXOX 3 AND TWO PERSON STAND PIVOT TO [facility] WITH GAIT BELT. NPO. PIVS INTACT. SPORTS ATHLETIC TRAINER REPORTS A-FIB 85. ASPIRATION PRECAUTIONS. FALL RISK. LR INFUSED X ONE BAG. WENT FROM 2L O2 NC TO ROOM AIR PER RT STATING 96%. DENIES CHEST PAIN, SOB, AND N/V. BP ELEVATED TO 164/112. NOTED AGITATION AT THE TIME. FIRST TWO TROPONINS NEGATIVE. AFEBRILE. CALL LIGHT IN REACH. BED IN LOWEST POSITION AND ALARM ACTIVATED. WILL CONTINUE TO MONITOR UNTIL DAY SHIFT NURSE ASSUMES CARE.
[2019-10-15 08:50] LABS: Hematocrit 47.2 % (37.0-53.0); Hemoglobin 15.1 g/dL (13.5-17.5); Mean Corpuscular HGB 27.6 pg (26.0-34.0); Mean Corpuscular Volume 86 fL (80-100); Mean Platelet Volume 12.3 fL (9.1-12.4); Platelet Count 163 K/mm3 (150-400); RDW Coefficient Variation 14.9 % (11.7-14.2); RDW Standard Deviation 46.9 fL (35.1-46.3); Red Blood Cell Count 5.47 M/mm3 (4.30-5.90); White Blood Cell Count 8.28 K/mm3 (4.00-11.30)
[2019-10-15 09:09] LABS: Anion Gap 8 mmol/L (6-16); Blood Urea Nitrogen 9 mg/dL (8-24); Bun/Creatinine Ratio 11.4 (12.0-20.0); CO2, Blood 25 mmol/L (21-32); Calcium, Blood 8.8 mg/dL (8.5-10.1); Chloride, Blood 108 mmol/L (98-108); Creatinine, Blood 0.79 mg/dL (0.60-1.20); Glomerular Filtration Rate >60 (60-); Glucose, Blood 87 mg/dL (70-99); Potassium, Blood 3.5 mmol/L (3.5-5.5); Sodium, Blood 141 mmol/L (136-145); Troponin I <0.015 ng/mL (0.000-0.040)
--- NOTE | 2019-10-15 17:37 | NUR ---
SHIFT SUMMARY PT RESTING QUIETLY DURING SHIFT REPORT. WAKES EASILY FOR CARE, BUT GOES BACK TO SLEEP. PRETTY TIRED AND LETHARGIC MOST OF THE DAY. WAS ABLE TO WORK WITH PT/OT AND AMBULATE TO BTHRM SEVERAL TIMES NEEDED. PT ADMITTED TO WITH BARBER CATH, PLACED IN ER. PT REQUESTED IT D/C'D FIRST THING THIS AM. DONE PER REQUEST PT MORE AWAKE AND ABLE TO GET TO BTHRM. PT HAS BEEN VOIDING W/O DIFFICULTY THRU OUT THE DAY. SP THERAPY TO EARLY TO SEE PT; ADMITTED FOR EXPRESSIVE DYSPHAGIA. PT'S SPEECH HAD CLEARED SOME THUR THE NIGHT AND THIS AM. STILL HAVING SOME SLOW RESPONSES AND STUTTERING SPEECH OFF AND ON, BUT SEEMS TO BE SOMEWHAT ORIENTED. PT'S COUSIN FROM [place] CALLED A COUPLE OF TIMES TO CHECK ON PT; REPORTING NO PRIOR SPEECH DIFFICULTY BEFORE TODAY. NO C/O CP OR ANY PAIN AT ALL TODAY. PT UP TO BTHRM SEVERAL TIMES ATTEMPTING TO HAVE A BM. PT LATER HAD A LIQUID GREEN, BROWN STOOL, PER SQUARE SHEAR OPERATOR. PT'S BP ELEVATED AT TIMES, SEE CHART. NEW ORDERS PLACED AND MEDS GIVEN PER EMAR. PT IN A-FIB, PER TELE MX. HR UP AT TIMES WITH EXERTION, PER TELE MX, COMING DOWN WITH REST. BED ALARM ON FOR SAFETY, UP WITH 1P ASSIST USING FWW. CALL LT IN REACH.
--- NOTE | 2019-10-16 02:38 | NUR ---
0055: PER PCU TECH PT HR ELEVATED TO APPROXIMATELY 150 BPM FOR ABOUT 30 SECONDS. PT WAS ASLEEP AT THE TIME AND ASYMPTOMATIC. WILL CONTINUE TO MONITOR - WILL MAKE DR AWARE NEXT CALL TO HOSPITALIST
[2019-10-16 05:08] LABS: BASOPHILS ABSOLUTE AUTO 0.03 K/mm3 (0.00-0.23); BASOPHILS PERCENT AUTO 0 % (0-2); EOSINOPHILS ABSOLUTE AUTO 0.18 K/mm3 (0.00-0.68); EOSINOPHILS PERCENT AUTO 3 % (0-6); Hemoglobin 14.8 g/dL (13.5-17.5); IMMATURE GRAN ABSOLUTE AUTO 0.01 K/mm3 (0.00-0.10); IMMATURE GRAN PERCENT AUTO 0 % (0-1); LYMPHOCYTES ABSOLUTE AUTO 2.25 K/mm3 (0.84-5.20); LYMPHOCYTES PERCENT AUTO 32 % (21-46); MONOCYTES ABSOLUTE AUTO 0.45 K/mm3 (0.16-1.47); MONOCYTES PERCENT AUTO 6 % (4-13); Mean Corpuscular HGB 27.4 pg (26.0-34.0); Mean Corpuscular HGB Conc 31.5 g/dL (31.5-36.5); Mean Corpuscular Volume 87 fL (80-100); Mean Platelet Volume 12.5 fL (9.1-12.4); NEUTROPHILS ABSOLUTE AUTO 4.17 K/mm3 (1.96-9.15); NEUTROPHILS PERCENT AUTO 59 % (41-73); Platelet Count 158 K/mm3 (150-400); RDW Coefficient Variation 15.2 % (11.7-14.2); RDW Standard Deviation 47.8 fL (35.1-46.3); White Blood Cell Count 7.09 K/mm3 (4.00-11.30)
[2019-10-16 05:29] LABS: Albumin, Blood 3.4 g/dL (3.4-5.0); Anion Gap 7 mmol/L (6-16); Blood Urea Nitrogen 12 mg/dL (8-24); Bun/Creatinine Ratio 14.8 (12.0-20.0); CO2, Blood 24 mmol/L (21-32); Calcium, Blood 8.6 mg/dL (8.5-10.1); Chloride, Blood 110 mmol/L (98-108); Creatinine, Blood 0.81 mg/dL (0.60-1.20); Glomerular Filtration Rate >60 (60-); Glucose, Blood 92 mg/dL (70-99); Magnesium, Blood 2.2 mg/dL (1.6-2.4); Potassium, Blood 3.4 mmol/L (3.5-5.5); Sodium, Blood 141 mmol/L (136-145)
--- NOTE | 2019-10-16 06:35 | NUR ---
PT HAD A NEW IV STARTED THIS SHIFT IN HER MARISEL. SHE RECEIVED PAIN MEDS PER EMAR. AND VALIUM ONCE AT BEDTIME. SHE HAD COMPANY ARRIVE THIS MORNING AND I ASKED HER TO LEAVE HER DOOR OPEN WHEN SHE HAS COMPANY. SHE HAS BEEN PLEASANT AND COOPERATIVE WITH CARE FOR ME. HER WELTS CONTINUE TO APPEAR RED AND SWOLLEN. SHE CALLS APPROPRIATELY AND IS CAPABLE OF MAKING HER NEEDS KNOWN.
--- NOTE | 2019-10-16 07:27 | NUR ---
NO ACUTE CHANGES TO REPORT
[2019-10-16 10:23] LABS: Free Thyroxine 1.11 ng/dL (0.70-1.60)
[2019-10-16 10:24] LABS: Thyroid Stimulating Hormone 1.17 uIU/mL (0.360-4.800); Triiodothyronine, Free 2.47 pg/mL (2.18-3.98)
--- NOTE | 2019-10-16 17:15 | NUR ---
PT HAD NO ACUTE CHANGES THIS SHIFT. PT DID HAVE SLURRED SPEECH THAT PT REPORTS BEING ABNORMAL FROM HIS BASELINE. DR NIXON CONSULTED TO AND THE PT BECAME VERY EMOTIONAL ABOUT THE TOPIC OF A PACE MAKER PLACEMENT. PT REFUSES PACEMAKER PLACEMENT AT THIS TIME, PT STATES "I UNDERSTAND WHAT A PACE MAKER DOES AND I REFUSE". PT DIOGO PAIN DURING THIS SHIFT. PT BP WAS LIABILE DURING THE SHIFT AND MEDS WERE GIVEN. PT HAS A HX OF DEPRESSION, THIS NURSE ASK IF HE HAD ANY INTENT TO HARM SELF AND HE DECLINED DURING THIS SHIFT. PT HAD A GOOD APETITE THIS SHIFT. AMBULATED WITH STANDBY ASSSIST AND FWW. BED ALARM ON BECAUSE OF FALL RISK AND CALL LIGHT WITH IN REACH. WILL COUNTINE TO MONITOR AND REPORT TO ONCOMING SHIFT
--- NOTE | 2019-10-17 04:54 | NUR ---
SHIFT SUMMARY AOX4. FOLLOWS DIRECTIONS & ANSWERS QUESTIONS APPROPRIATELY. SLOW TO RESPOND & HAS SLURRED/STUTTERED SPEECH, REPORTS THIS IS NOT HIS BASELINE. TEARFUL @TIMES. DENIES PAIN, PALPATIONS, OR DIZZINESS THIS SHIFT. REPORTS MILD NAUSEA BUT DENIES THE NEED FOR ANY NAUSEA MEDICATION. REPORTS FEELING DYSPNIC AFTER AMBULATION TO RESTROOM, SPO2 >90% ON RA, E/U RESPIRATIONS. VSS. TELE IN PLACE, RUNNING AFIB @77. +1 PITTING EDEMA IN BLE. CALL LIGHT IN REACH & BED IN LOWEST POSITION, WCTM.
--- NOTE | 2019-10-17 17:44 | NUR ---
SHIFT SUMMARY PT HAS NO ACUTE CHANGES THIS SHIFT. PT HAS NEEDED ENCOURAGEMENT DURING THE SHIFT TO PERFORM ADL'S AND NOT SIT IN THE DARK ROOM. PT EXPRESSED HAVING A HX OF DEPRESSION, THIS NURSE ASK IF THERE WAS ANY FURTHUR THINGS I COULD DO OR IF THE PROVIDER NEEDED TO BE NOTIFIED AND HE DECLINED. PT DIOGO ANY PAIN DURING THE SHIFT. PT DIET STATUS WILL CHANGE TO NPO AFTER MIDNIGHT PER DR. NIXON. PT AMBULATES WITH SBA TO RESTROOM. CALL LIGHT WITH ON REACH AND WILL COUNTINUE TO MONITOR THE REMAINDER OF THE SHIFT WILL REPORT ONCOMING NOC RN.
--- NOTE | 2019-10-18 04:28 | NUR ---
SUMMARY: PT A/OX4, SPECIFIES NEEDS AND CALLS APPROPRIATELY. HE SPOKE W/HIS PHILLIPINO FIANCE AT START OF SHIFT WHICH SEEMED TO SIGNIFICANTLY LIFT HIS SPIRITS. HE REPORTED IT "MAKING HIM VERY HAPPY" AND ALSO ADMITTED THAT HE FELT HIS "SPEECH WAS IMPROVING". PT NOTED TO HAVE OCCASIONAL STUTTER BUT HAS HAD NO DIFFICULTY CONVEYING NEEDS. HE'S A SBA W/FWW OOB AND WAS CONTINENT T/O NOCTE. PT REMAINS AFIB AT 80'S BPM PER TELEMETRY. SPO2 WNL ON 2L O2 VIA NC, CONT BIOX INTACT AND PT REFUSED CPAP AT HS. HE REMAINS NPO FOLLOWING CX W/ BUT STAFF ARE UNSURE OF RATIONALE OR WHETHER A PROCEDURE IS INTENDED. WILL HAVE DAY RN FOLLOW UP. NO ACUTE CHANGES, VSS/AFEBRILE. PT HAS DENIED PAIN AND ALL OTHER COMPLAINTS/CONCERNS. WCTM AND REPORT TO DAY RN.
[2019-10-18 05:17] LABS: Albumin, Blood 3.3 g/dL (3.4-5.0); Anion Gap 8 mmol/L (6-16); Blood Urea Nitrogen 13 mg/dL (8-24); Bun/Creatinine Ratio 17.2 (12.0-20.0); CO2, Blood 25 mmol/L (21-32); Calcium, Blood 8.7 mg/dL (8.5-10.1); Chloride, Blood 110 mmol/L (98-108); Creatinine, Blood 0.76 mg/dL (0.60-1.20); Glomerular Filtration Rate >60 (60-); Glucose, Blood 89 mg/dL (70-99); Phosphorus, Blood 4.5 mg/dL (2.5-4.9); Potassium, Blood 3.3 mmol/L (3.5-5.5); Sodium, Blood 143 mmol/L (136-145)
--- NOTE | 2019-10-18 12:16 | NUR ---
PT WAS TRANSFERRED TO THE WELFARE ADVISER FOR AN ANGIOGRAM. PERSONAL BELONGINGS WILL BE SENT TO HIS NEW ROOM WHEN IT IS ASSIGNED. PT STABLE UPON TRANSPORT.
--- NOTE | 2019-10-18 16:44 | NUR ---
Pt consent Pt gave consent for nursing home admissions director DIEGO to provide care today.
--- NOTE | 2019-10-18 18:25 | NUR ---
SHIFT SUMMARY. PT ARRIVED TO UNIT FROM [employer]PLANDS DIVISION DIRECTOR W/RIGHT RADIAL SITE. TR BAND INTACT W/14MLS OF AIR. PT WAS HYPERTENSIVE, PROVIDER AWARE AND MEDICATED PER ORDERS. PT IS A&Ox4 AND IND IN THE ROOM. PT DENIES ANY CHEST PAIN/PRESSURE N/V OR SOB AT THIS TIME. PT DENIES PAIN TO THE RIGHT HAND,WRIST OR ARM. NO SWELLING, REDNESS OR HEMATOMA NOTED. PT HAS EXTREME URGENCY WHEN HE NEEDS TO VOID, PT HAD INCONT EPISODE D/T THIS URGENCY. CALL LIGHT IN REACH, WILL CONTINUE TO MONITOR UNTIL REPORT IS GIVEN TO ONCOMING RN.
[2019-10-19 04:01] LABS: Albumin, Blood 3.3 g/dL (3.4-5.0); Anion Gap 8 mmol/L (6-16); Blood Urea Nitrogen 13 mg/dL (8-24); Bun/Creatinine Ratio 17.5 (12.0-20.0); CO2, Blood 25 mmol/L (21-32); Calcium, Blood 8.5 mg/dL (8.5-10.1); Chloride, Blood 112 mmol/L (98-108); Creatinine, Blood 0.74 mg/dL (0.60-1.20); Glomerular Filtration Rate >60 (60-); Glucose, Blood 127 mg/dL (70-99); Potassium, Blood 3.3 mmol/L (3.5-5.5); Sodium, Blood 145 mmol/L (136-145)
--- NOTE | 2019-10-19 05:34 | NUR ---
ASSUMED CARE AT 1900 . SEE TR BAND RT WRIST RECOVERY IN PI. WNL AT THIS TIME. FINALLY SLEEPING SOUNDLY AND NOTED FREQ SAT DROP TO 80% MOMENTARILY. PLACED O2 ON AT 2L FOR SLEEP AT END OF SHIFT. NOTED AT HS BLOOD SUGAR 66, MANY SNACKS TAKEN AND SOME W/ SUGAR. REPORTS NON COMPLIANT W/ CHECKING BLOOD SUGARS AT HOME. NOT SURE WHAT HIS BASELINE WOULD BE. IMPROVED PER LAAB THIS AM. AND SATS IMPROVE W/ 2L NC AF CONTROLLED. INDEPENDENT TO BR THRU NOC. ARM BOARD ON AT ALL TIMES AND AWARE OF RESTRICTIONS
--- NOTE | 2019-10-19 08:40 | NUR ---
AM NOTE.... ASSUMED CARE OF PT APROX 0700. PT IS A&Ox4 AND IS S/P ANGIO WITH NO INTERVENTIONS. RIGHT RADIAL SITE IS C/D/I, NO SWELLING OR HEMATOMA NOTED. PT IS HYPERTENSIVE WITH BP OF 200/122, PROVIDER AWARE AND ORDERS OBTAINED. PT'S OTHER VS STABLE. PT IS IND IN THE ROOM. CALL LIGHT IN REACH WILL CONTINUE TO MONITOR.
--- NOTE | 2019-10-19 15:20 | NUR ---
PT D/C TO SNF. PT WAS D/C'D TO SNF. ALL OF PT'S BELONGINS PACKED AND SENT WITH THE PT. PTS IV WAS REMOVED WNL. R RADIAL SITE WAS C/D/I W/NO SWELLING OR HEMATOMA NOTED. PT DENIED CHEST PAIN/PRESSURE N/V OR SOB
== END 2019-10-19 15:02 | disposition home or self-care (01) ==
LOC: ER 16:36 → MEDS 16:37 → ER 16:37 → MEDS 16:37 → MHTC 10-15 00:46 → MEDS 10-15 00:49 → PCU 10-18 13:48 → MEDS 10-18 13:48 → MHTC 10-19 15:02 → PCU 10-19 15:02
PROVIDERS: Internal Medicine; Nurse Practitioner Acute Care; Physician Assistant
PROC: 4A023N7 Measurement of Cardiac Sampling and Pressure, Left Heart, Percutaneous Approach (ICD-10-PCS; principal; 2019-10-14)
PROC: B201YZZ Plain Radiography of Multiple Coronary Arteries using Other Contrast (ICD-10-PCS; principal; 2019-10-14)
DX: R07.9 Chest pain, unspecified (principal); I25.119 Atherosclerotic heart disease of native coronary artery with unspecified angina pectoris; I48.20 Chronic atrial fibrillation, unspecified; J44.9 Chronic obstructive pulmonary disease, unspecified; F32.9 Major depressive disorder, single episode, unspecified; K21.9 Gastro-esophageal reflux disease without esophagitis; E78.5 Hyperlipidemia, unspecified; E87.6 Hypokalemia; G47.33 Obstructive sleep apnea (adult) (pediatric); E11.9 Type 2 diabetes mellitus without complications; R53.1 Weakness; R47.02 Dysphasia; I25.2 Old myocardial infarction; I11.0 Hypertensive heart disease with heart failure; I50.32 Chronic diastolic (congestive) heart failure; Z88.8 Allergy status to other drugs, medicaments and biological substances; Z91.041 Radiographic dye allergy status; Z79.82 Long term (current) use of aspirin; Z79.01 Long term (current) use of anticoagulants; Z79.899 Other long term (current) drug therapy
CPT/HCPCS: 36415; 36600; 51702; 70450; 70496; 70498; 71045; 76937; 80047; 80048; 80053; 80069; 81001; 82550; 82803; 82947; 83605; 83735; 83880; 84439; 84443; 84481; 84484; 85014; 85025; 85027; 92523; 92610; 93005; 93010; 93458; 94640; 94660; 94760; 94762; 96361-59; 96374-59; 96375; 96375-59; 96376; 97110; 97116; 97162; 97166; 97530; 97535; 99152; 99153; 99285-25; C1769; C1894; G0378; J0360; J1200; J1644; J1720; J2250; J2310; J3010; J3490; J7030; J7120; Q9967

== ENCOUNTER 2019-11-11 08:39 | Emergency (ER) | payer OTHER ==
[~2019-11-11] VITALS: Ht 180.3 cm; Wt 122.9 kg
[~2019-11-11 08:39] MED LIST changes: +B-121000 MC2 PO; +ELIQUIS5 M3 PO; +METFORMIN HCL500 M3 PO; +Venlafaxine HCl75 M1 PO
[2019-11-11] MEDS ORDERED: Flagyl500 MG PO (10:05)
[2019-11-11] MEDS ORDERED: Proctocort30 MG PR (10:05)
[2019-11-12] MEDS ORDERED: HYDACE25S PR (12:14)
== END 2019-11-11 10:33 | disposition home or self-care (01) ==
LOC: ER 08:39
DX: K62.9 Disease of anus and rectum, unspecified (principal); I10 Essential (primary) hypertension; I48.91 Unspecified atrial fibrillation; J44.9 Chronic obstructive pulmonary disease, unspecified; I25.2 Old myocardial infarction; Z88.8 Allergy status to other drugs, medicaments and biological substances; Z91.09 Other allergy status, other than to drugs and biological substances; Z91.048 Other nonmedicinal substance allergy status; Z79.82 Long term (current) use of aspirin; Z79.899 Other long term (current) drug therapy
CPT/HCPCS: 99283

== ENCOUNTER 2019-11-12 11:01 | Emergency (ER) | payer OTHER ==
[~2019-11-12] VITALS: Ht 180.3 cm; Wt 122.9 kg
[~2019-11-12 11:01] MED LIST changes: +Flagyl500 MG PO; +Proctocort30 MG PR
[2019-11-12] MEDS ORDERED: HYDACE25S PR (12:14)
== END 2019-11-12 12:28 | disposition home or self-care (01) ==
LOC: ER 11:01
DX: R47.1 Dysarthria and anarthria (principal); I10 Essential (primary) hypertension; I25.2 Old myocardial infarction; E11.9 Type 2 diabetes mellitus without complications; I48.91 Unspecified atrial fibrillation; J44.9 Chronic obstructive pulmonary disease, unspecified; G47.30 Sleep apnea, unspecified; Z91.09 Other allergy status, other than to drugs and biological substances; Z91.048 Other nonmedicinal substance allergy status; Z79.899 Other long term (current) drug therapy; Z79.84 Long term (current) use of oral hypoglycemic drugs; Z79.01 Long term (current) use of anticoagulants; Z79.82 Long term (current) use of aspirin; Z79.51 Long term (current) use of inhaled steroids
CPT/HCPCS: 99284

== ENCOUNTER 2019-11-24 15:46 | Observation (INO) | payer OTHER ==
[~2019-11-24] VITALS: Ht 180.3 cm; Wt 120.2 kg
[~2019-11-24 15:46] MED LIST changes: -Aspir 8181 MG PO; -BUDE10.22 INH; -ELIQUIS5 M3 PO; -FURO40 PO; +HYDACE25S PR; -Lipitor20 MG PO; -METFORMIN HCL500 M3 PO; -METO25ER PO; -MONT10T PO; -OLAN10 PO; -PANT40 PO; -POTA10T PO; -SPIRIVA RESPIMAT4 GM INH; -Venlafaxine HCl75 M1 PO
[2019-11-24 16:16] LABS: Source, Urine Clean Catch
[2019-11-24 16:29] LABS: Bilirubin, Urine Neg (Neg); Blood, Urine 1+ (Neg); Glucose Qualitative, Urine Neg (Neg); Ketones, Urine Neg (Neg); Leukocyte Esterase, Urine 1+ (Neg); Nitrite, Urine Neg (Neg); Protein, Urine Neg (Neg); Urobilinogen, Urine NORM (Normal)
[2019-11-24 16:44] LABS: Appearance, Urine Clear (Clear); Color, Urine Yellow (P-Yellow)
[2019-11-24 16:45] LABS: Bacteria Few /hpf; Hyaline Casts 0-2 /lpf (0-2); Mucus Light (0-Heavy); Squamous Epithelial Cells Few /hpf (Few)
[2019-11-24 16:50] LABS: U Amphetamine Screen Not Detected; U Barbituate Screen Not Detected; U Benzodiazapine Screen Not Detected; U Buprenorphine Screen Not Detected; U Cannabinoids Screen Not Detected; U Cocaine Screen Not Detected; U Methadone Screen Not Detected; U Methamphetamine Screen Not Detected; U Opiates Screen Not Detected; U Oxycodone Screen Not Detected; U Propoxyphene Screen Not Detected
[2019-11-24 17:02] LABS: BASOPHILS ABSOLUTE AUTO 0.03 K/mm3 (0.00-0.23); BASOPHILS PERCENT AUTO 0 % (0-2); EOSINOPHILS ABSOLUTE AUTO 0.09 K/mm3 (0.00-0.68); EOSINOPHILS PERCENT AUTO 1 % (0-6); Hematocrit 51.2 % (37.0-53.0); Hemoglobin 16.4 g/dL (13.5-17.5); IMMATURE GRAN ABSOLUTE AUTO 0.02 K/mm3 (0.00-0.10); IMMATURE GRAN PERCENT AUTO 0 % (0-1); LYMPHOCYTES PERCENT AUTO 17 % (21-46); MONOCYTES ABSOLUTE AUTO 0.76 K/mm3 (0.16-1.47); MONOCYTES PERCENT AUTO 8 % (4-13); Mean Corpuscular HGB 27.7 pg (26.0-34.0); Mean Corpuscular Volume 87 fL (80-100); Mean Platelet Volume 12.2 fL (9.1-12.4); NEUTROPHILS ABSOLUTE AUTO 6.68 K/mm3 (1.96-9.15); NEUTROPHILS PERCENT AUTO 73 % (41-73); Platelet Count 186 K/mm3 (150-400); RDW Coefficient Variation 14.4 % (11.7-14.2); RDW Standard Deviation 45.6 fL (35.1-46.3); Red Blood Cell Count 5.91 M/mm3 (4.30-5.90); White Blood Cell Count 9.18 K/mm3 (4.00-11.30)
[2019-11-24 17:16] LABS: Ethanol (Alcohol), Blood, Med <3 mg/dL
[2019-11-24 17:17] LABS: Alanine Aminotransfer (ALT/SGP 33 U/L (12-78); Albumin, Blood 3.8 g/dL (3.4-5.0); Alk Phos 71 U/L (50-136); Anion Gap 5 mmol/L (6-16); Aspartate Aminotrans (AST/SGOT 19 U/L (12-37); Bilirubin, Total 0.4 mg/dL (0.1-1.0); Blood Urea Nitrogen 13 mg/dL (8-24); Bun/Creatinine Ratio 18.4 (12.0-20.0); CO2, Blood 24 mmol/L (21-32); Calcium, Blood 9.1 mg/dL (8.5-10.1); Chloride, Blood 108 mmol/L (98-108); Creatinine, Blood 0.71 mg/dL (0.60-1.20); Glomerular Filtration Rate >60 (60-); Glucose, Blood 91 mg/dL (70-99); Potassium, Blood 3.9 mmol/L (3.5-5.5); Salicylate <1.7 mg/dL (2.8-20.0); Sodium, Blood 137 mmol/L (136-145); Total Protein, Blood 7.8 g/dL (6.4-8.2)
[2019-11-24 17:19] LABS: Acetaminophen, Random <2.0 ug/mL (10.0-30.0)
[2019-11-24] MEDS ORDERED: PANT40 PO (20:10)
[2019-11-24] MEDS ORDERED: Venlafaxine HCl75 M1 PO (20:10)
[2019-11-24] MEDS ORDERED: Aspir 8181 MG PO (20:11)
[2019-11-24] MEDS ORDERED: METFORMIN HCL500 M3 PO (20:11)
[2019-11-24] MEDS ORDERED: FURO40 PO (20:11)
[2019-11-24] MEDS ORDERED: ALBU90OI INH (20:12)
[2019-11-24] MEDS ORDERED: ELIQUIS5 M3 PO (20:12)
[2019-11-24] MEDS ORDERED: MONT10T PO (20:12)
[2019-11-24] MEDS ORDERED: Lipitor20 MG PO (20:12)
[2019-11-24] MEDS ORDERED: NITROGLYCERIN0.4 M1 SL (20:13)
[2019-11-24] MEDS ORDERED: OLAN10 PO (20:13)
[2019-11-24] MEDS ORDERED: POTA10T PO (20:14)
[2019-11-24] MEDS ORDERED: BUDE10.22 INH (20:14)
[2019-11-24] MEDS ORDERED: METO25ER PO (20:15)
[2019-11-24] MEDS ORDERED: LOSARTAN POTAS100 M1 PO (20:16)
[2019-11-24] MEDS ORDERED: AMLODIPINE BES2.5 MG PO (20:18)
[2019-11-24] MEDS ORDERED: SPIRIVA RESPIMAT4 GM INH (20:18)
[2019-11-24] MEDS ORDERED: Diltiazem HCl120 MG PO (20:19)
== END 2019-11-25 15:46 | disposition home or self-care (01) ==
LOC: ER 15:46 → EOR 15:47
PROVIDERS: Physician Assistant; ADMIT Emergency Medicine
DX: R45.851 Suicidal ideations (principal); F32.9 Major depressive disorder, single episode, unspecified; J45.909 Unspecified asthma, uncomplicated; I10 Essential (primary) hypertension; I25.2 Old myocardial infarction; J44.9 Chronic obstructive pulmonary disease, unspecified; E11.9 Type 2 diabetes mellitus without complications; Z88.8 Allergy status to other drugs, medicaments and biological substances; Z91.041 Radiographic dye allergy status; Z79.82 Long term (current) use of aspirin; Z79.84 Long term (current) use of oral hypoglycemic drugs; Z79.01 Long term (current) use of anticoagulants; Z79.899 Other long term (current) drug therapy
CPT/HCPCS: 71046; 80053; 81001; 82947; 84484; 85025; 87086; 93005; 93010; 94640; 99285-25; G0378; G0480; Q3014

== ENCOUNTER 2019-12-02 15:21 | Emergency (ER) | payer OTHER ==
[~2019-12-02] VITALS: Ht 180.3 cm; Wt 116.1 kg
[~2019-12-02 15:21] MED LIST changes: +AMLODIPINE BES2.5 MG PO; +Aspir 8181 MG PO; +BUDE10.22 INH; +Diltiazem HCl120 MG PO; +ELIQUIS5 M3 PO; +FURO40 PO; +LOSARTAN POTAS100 M1 PO; +Lipitor20 MG PO; +METFORMIN HCL500 M3 PO; +METO25ER PO; +MONT10T PO; +NITROGLYCERIN0.4 M1 SL; +OLAN10 PO; +PANT40 PO; +POTA10T PO; +SPIRIVA RESPIMAT4 GM INH; +Venlafaxine HCl75 M1 PO
[2019-12-02 15:55] LABS: BASOPHILS ABSOLUTE AUTO 0.02 K/mm3 (0.00-0.23); BASOPHILS PERCENT AUTO 0 % (0-2); EOSINOPHILS ABSOLUTE AUTO 0.06 K/mm3 (0.00-0.68); EOSINOPHILS PERCENT AUTO 1 % (0-6); Hemoglobin 17.4 g/dL (13.5-17.5); IMMATURE GRAN ABSOLUTE AUTO 0.04 K/mm3 (0.00-0.10); IMMATURE GRAN PERCENT AUTO 0 % (0-1); LYMPHOCYTES ABSOLUTE AUTO 1.73 K/mm3 (0.84-5.20); LYMPHOCYTES PERCENT AUTO 18 % (21-46); MONOCYTES ABSOLUTE AUTO 0.54 K/mm3 (0.16-1.47); MONOCYTES PERCENT AUTO 6 % (4-13); Mean Corpuscular HGB 27.8 pg (26.0-34.0); Mean Corpuscular HGB Conc 31.6 g/dL (31.5-36.5); Mean Corpuscular Volume 88 fL (80-100); Mean Platelet Volume 12.4 fL (9.1-12.4); NEUTROPHILS ABSOLUTE AUTO 7.26 K/mm3 (1.96-9.15); NEUTROPHILS PERCENT AUTO 75 % (41-73); Platelet Count 244 K/mm3 (150-400); RDW Coefficient Variation 14.4 % (11.7-14.2); RDW Standard Deviation 46.4 fL (35.1-46.3); Red Blood Cell Count 6.26 M/mm3 (4.30-5.90); White Blood Cell Count 9.65 K/mm3 (4.00-11.30)
[2019-12-02 15:56] LABS: Hematocrit 55.1 % (37.0-53.0)
[2019-12-02 16:18] LABS: Ethanol (Alcohol), Blood, Med <3 mg/dL; Salicylate <1.7 mg/dL (2.8-20.0); Troponin I <0.015 ng/mL (0.000-0.040)
[2019-12-02 16:33] LABS: Acetaminophen, Random <2.0 ug/mL (10.0-30.0); Alanine Aminotransfer (ALT/SGP 61 U/L (12-78); Albumin, Blood 4.2 g/dL (3.4-5.0); Alk Phos 80 U/L (50-136); Anion Gap 12 mmol/L (6-16); Aspartate Aminotrans (AST/SGOT 24 U/L (12-37); Bilirubin, Total 0.9 mg/dL (0.1-1.0); Blood Urea Nitrogen 15 mg/dL (8-24); Bun/Creatinine Ratio 16.3 (12.0-20.0); CO2, Blood 18 mmol/L (21-32); Calcium, Blood 9.4 mg/dL (8.5-10.1); Chloride, Blood 110 mmol/L (98-108); Creatinine, Blood 0.92 mg/dL (0.60-1.20); Glomerular Filtration Rate >60 (60-); Glucose, Blood 144 mg/dL (70-99); Potassium, Blood 3.8 mmol/L (3.5-5.5); Sodium, Blood 140 mmol/L (136-145); Total Protein, Blood 8.2 g/dL (6.4-8.2)
[2019-12-02] MEDS ORDERED: ONDA4ODT MM (18:29)
[2019-12-04] MEDS ORDERED: ONDA4ODT MM (15:51)
== END 2019-12-02 20:21 | disposition home or self-care (01) ==
LOC: ER 15:21
PROVIDERS: Physician Assistant
DX: R11.15 Cyclical vomiting syndrome unrelated to migraine (principal); I25.2 Old myocardial infarction; I10 Essential (primary) hypertension; J44.9 Chronic obstructive pulmonary disease, unspecified; E11.9 Type 2 diabetes mellitus without complications; Z79.899 Other long term (current) drug therapy
CPT/HCPCS: 36415; 71045; 74176; 80053; 83690; 84484; 85025; 93005; 93010; 96374; 96375; 99285-25; A9270-GY; G0480; J1200; J1630; J2060; J2405

== ENCOUNTER 2019-12-02 20:16 | Emergency (ER) | payer OTHER ==
[~2019-12-02] VITALS: Ht 182.9 cm; Wt 113.4 kg
[2019-12-02 20:57] LABS: BASOPHILS ABSOLUTE AUTO 0.02 K/mm3 (0.00-0.23); BASOPHILS PERCENT AUTO 0 % (0-2); EOSINOPHILS ABSOLUTE AUTO 0.09 K/mm3 (0.00-0.68); EOSINOPHILS PERCENT AUTO 1 % (0-6); Hematocrit 54.2 % (37.0-53.0); Hemoglobin 17.3 g/dL (13.5-17.5); IMMATURE GRAN ABSOLUTE AUTO 0.01 K/mm3 (0.00-0.10); IMMATURE GRAN PERCENT AUTO 0 % (0-1); LYMPHOCYTES PERCENT AUTO 26 % (21-46); MONOCYTES ABSOLUTE AUTO 0.51 K/mm3 (0.16-1.47); MONOCYTES PERCENT AUTO 6 % (4-13); Mean Corpuscular HGB 27.7 pg (26.0-34.0); Mean Corpuscular HGB Conc 31.9 g/dL (31.5-36.5); Mean Corpuscular Volume 87 fL (80-100); Mean Platelet Volume 12.3 fL (9.1-12.4); NEUTROPHILS ABSOLUTE AUTO 5.22 K/mm3 (1.96-9.15); NEUTROPHILS PERCENT AUTO 66 % (41-73); Platelet Count 226 K/mm3 (150-400); RDW Coefficient Variation 14.5 % (11.7-14.2); RDW Standard Deviation 46.1 fL (35.1-46.3); Red Blood Cell Count 6.24 M/mm3 (4.30-5.90); White Blood Cell Count 7.95 K/mm3 (4.00-11.30)
[2019-12-02 21:03] LABS: Alanine Aminotransfer (ALT/SGP 61 U/L (12-78); Alk Phos 81 U/L (50-136); Anion Gap 10 mmol/L (6-16); Aspartate Aminotrans (AST/SGOT 23 U/L (12-37); Bilirubin, Total 1.1 mg/dL (0.1-1.0); Blood Urea Nitrogen 17 mg/dL (8-24); Bun/Creatinine Ratio 14.8 (12.0-20.0); CO2, Blood 26 mmol/L (21-32); Calcium, Blood 9.4 mg/dL (8.5-10.1); Chloride, Blood 108 mmol/L (98-108); Creatinine, Blood 1.15 mg/dL (0.60-1.20); Glomerular Filtration Rate >60 (60-); Glucose, Blood 104 mg/dL (70-99); Potassium, Blood 3.9 mmol/L (3.5-5.5); Sodium, Blood 144 mmol/L (136-145)
[2019-12-04] MEDS ORDERED: ONDA4ODT MM (15:51)
== END 2019-12-03 01:11 | disposition home or self-care (01) ==
LOC: ER 20:16
PROVIDERS: Emergency Medicine
DX: R40.20 Unspecified coma (principal); I10 Essential (primary) hypertension; I25.2 Old myocardial infarction; I48.91 Unspecified atrial fibrillation; E11.9 Type 2 diabetes mellitus without complications; J44.9 Chronic obstructive pulmonary disease, unspecified; G43.909 Migraine, unspecified, not intractable, without status migrainosus; F32.9 Major depressive disorder, single episode, unspecified; Z91.09 Other allergy status, other than to drugs and biological substances; Z91.048 Other nonmedicinal substance allergy status; Z79.899 Other long term (current) drug therapy; Z79.82 Long term (current) use of aspirin; Z79.84 Long term (current) use of oral hypoglycemic drugs; Z79.51 Long term (current) use of inhaled steroids
CPT/HCPCS: 36415; 80053; 82947; 84484; 85025; 93005; 93010; 99284-25

== ENCOUNTER 2019-12-27 09:24 | Emergency (ER) | payer OTHER ==
[~2019-12-27] VITALS: Ht 182.9 cm; Wt 104.3 kg
[2019-12-27 10:20] LABS: BASOPHILS ABSOLUTE AUTO 0.01 K/mm3 (0.00-0.23); BASOPHILS PERCENT AUTO 0 % (0-2); EOSINOPHILS PERCENT AUTO 2 % (0-6); Hematocrit 48.6 % (37.0-53.0); Hemoglobin 15.4 g/dL (13.5-17.5); IMMATURE GRAN ABSOLUTE AUTO 0.01 K/mm3 (0.00-0.10); IMMATURE GRAN PERCENT AUTO 0 % (0-1); LYMPHOCYTES ABSOLUTE AUTO 1.05 K/mm3 (0.84-5.20); LYMPHOCYTES PERCENT AUTO 18 % (21-46); MONOCYTES ABSOLUTE AUTO 0.29 K/mm3 (0.16-1.47); MONOCYTES PERCENT AUTO 5 % (4-13); Mean Corpuscular HGB Conc 31.7 g/dL (31.5-36.5); Mean Corpuscular Volume 88 fL (80-100); Mean Platelet Volume 12.1 fL (9.1-12.4); NEUTROPHILS ABSOLUTE AUTO 4.52 K/mm3 (1.96-9.15); NEUTROPHILS PERCENT AUTO 76 % (41-73); Platelet Count 155 K/mm3 (150-400); RDW Coefficient Variation 14.7 % (11.7-14.2); RDW Standard Deviation 47.8 fL (35.1-46.3); White Blood Cell Count 5.98 K/mm3 (4.00-11.30)
[2019-12-27 10:30] LABS: Alanine Aminotransfer (ALT/SGP 32 U/L (12-78); Albumin, Blood 3.4 g/dL (3.4-5.0); Albumin/Globulin Ratio 0.9 (0.8-1.8); Alk Phos 60 U/L (50-136); Anion Gap 4 mmol/L (6-16); Aspartate Aminotrans (AST/SGOT 16 U/L (12-37); Bilirubin, Total 0.5 mg/dL (0.1-1.0); Blood Urea Nitrogen 12 mg/dL (8-24); Bun/Creatinine Ratio 21.3 (12.0-20.0); CO2, Blood 25 mmol/L (21-32); Calcium, Blood 8.8 mg/dL (8.5-10.1); Chloride, Blood 111 mmol/L (98-108); Creatinine, Blood 0.56 mg/dL (0.60-1.20); Globulin, Blood 3.6 g/dL (2.2-4.0); Glomerular Filtration Rate >60 (60-); Glucose, Blood 127 mg/dL (70-99); Potassium, Blood 4.2 mmol/L (3.5-5.5); Sodium, Blood 140 mmol/L (136-145); Troponin I <0.015 ng/mL (0.000-0.040)
[2019-12-27] MEDS ORDERED: Zithromax250 MG PO (11:26)
== END 2019-12-27 12:10 | disposition home or self-care (01) ==
LOC: ER 09:24
PROVIDERS: Nurse Practitioner
DX: J44.0 Chronic obstructive pulmonary disease with (acute) lower respiratory infection (principal); J18.9 Pneumonia, unspecified organism; I10 Essential (primary) hypertension; I25.2 Old myocardial infarction; G47.30 Sleep apnea, unspecified; I48.91 Unspecified atrial fibrillation; E11.9 Type 2 diabetes mellitus without complications; Z88.8 Allergy status to other drugs, medicaments and biological substances; Z79.899 Other long term (current) drug therapy; Z79.82 Long term (current) use of aspirin; Z79.84 Long term (current) use of oral hypoglycemic drugs
CPT/HCPCS: 71046; 80053; 83880; 84484; 85025; 93005; 93010; J2405; J7030

== ENCOUNTER 2020-01-06 09:37 | Inpatient (IN) | payer OTHER ==
[~2020-01-06] VITALS: Ht 180.3 cm; Wt 131.0 kg
[~2020-01-06 09:37] MED LIST changes: +Zithromax250 MG PO
[2020-01-06 10:20] LABS: BASOPHILS ABSOLUTE AUTO 0.02 K/mm3 (0.00-0.23); BASOPHILS PERCENT AUTO 0 % (0-2); EOSINOPHILS ABSOLUTE AUTO 0.11 K/mm3 (0.00-0.68); EOSINOPHILS PERCENT AUTO 1 % (0-6); Hematocrit 48.2 % (37.0-53.0); Hemoglobin 15.5 g/dL (13.5-17.5); IMMATURE GRAN ABSOLUTE AUTO 0.02 K/mm3 (0.00-0.10); IMMATURE GRAN PERCENT AUTO 0 % (0-1); LYMPHOCYTES ABSOLUTE AUTO 1.42 K/mm3 (0.84-5.20); LYMPHOCYTES PERCENT AUTO 18 % (21-46); MONOCYTES ABSOLUTE AUTO 0.47 K/mm3 (0.16-1.47); MONOCYTES PERCENT AUTO 6 % (4-13); Mean Corpuscular HGB 27.9 pg (26.0-34.0); Mean Corpuscular HGB Conc 32.2 g/dL (31.5-36.5); Mean Corpuscular Volume 87 fL (80-100); Mean Platelet Volume 11.4 fL (9.1-12.4); NEUTROPHILS ABSOLUTE AUTO 5.75 K/mm3 (1.96-9.15); NEUTROPHILS PERCENT AUTO 74 % (41-73); Platelet Count 175 K/mm3 (150-400); RDW Coefficient Variation 14.5 % (11.7-14.2); RDW Standard Deviation 46.3 fL (35.1-46.3); Red Blood Cell Count 5.55 M/mm3 (4.30-5.90); White Blood Cell Count 7.79 K/mm3 (4.00-11.30)
[2020-01-06 10:31] LABS: Alanine Aminotransfer (ALT/SGP 26 U/L (12-78); Albumin, Blood 3.4 g/dL (3.4-5.0); Alk Phos 72 U/L (50-136); Anion Gap 6 mmol/L (6-16); Aspartate Aminotrans (AST/SGOT 21 U/L (12-37); Bilirubin, Total 0.6 mg/dL (0.1-1.0); Blood Urea Nitrogen 12 mg/dL (8-24); Bun/Creatinine Ratio 16.1 (12.0-20.0); CO2, Blood 25 mmol/L (21-32); Calcium, Blood 8.7 mg/dL (8.5-10.1); Chloride, Blood 111 mmol/L (98-108); Creatinine, Blood 0.75 mg/dL (0.60-1.20); Globulin, Blood 3.4 g/dL (2.2-4.0); Glomerular Filtration Rate >60 (60-); Glucose, Blood 98 mg/dL (70-99); Potassium, Blood 4.2 mmol/L (3.5-5.5); Sodium, Blood 142 mmol/L (136-145); Total Protein, Blood 6.8 g/dL (6.4-8.2)
[2020-01-06 11:12] LABS: Source, Urine Clean Catch
[2020-01-06 11:18] LABS: Appearance, Urine Clear (Clear); Bilirubin, Urine Neg (Neg); Blood, Urine 1+ (Neg); Color, Urine Yellow (P-Yellow); Glucose Qualitative, Urine Neg (Neg); Ketones, Urine Neg (Neg); Leukocyte Esterase, Urine Neg (Neg); Nitrite, Urine Neg (Neg); Protein, Urine 2+ (Neg); Specific Gravity, Urine 1.015 (1.003-1.022); Urobilinogen, Urine NORM (Normal)
[2020-01-06 11:25] LABS: White Blood Cells, Urine Not Seen /hpf (0-5)
[2020-01-06 11:26] LABS: Bacteria Not Seen /hpf; Mucus Heavy (0-Heavy); Red Blood Cells, Urine 0-2 /hpf (0-2); Squamous Epithelial Cells Few /hpf (Few)
--- NOTE | 2020-01-06 18:05 | NUR ---
PT HAS BEEN SETTLED INTO ROOM. AOX4 AND COOPERATIVE OF CARE. PT DENIES PAIN OR SOB AT THIS TIME. WILL CONTINUE TO MONITOR, INDEPENDENT IN ROOM.
[2020-01-06 18:33] LABS: Adenovirus Not Detected (NOT DETECT); Bordetella pertussis Not Detected (NOT DETECT); Chlamydophila pneumoniae Not Detected (NOT DETECT); Coronavirus 229E Not Detected (NOT DETECT); Coronavirus HKU1 Not Detected (NOT DETECT); Coronavirus NL63 Not Detected (NOT DETECT); Coronavirus OC43 Not Detected (NOT DETECT); Human Metapneumovirus Not Detected (NOT DETECT); Human Rhinovirus/Enterovirus Not Detected (NOT DETECT); Influenza A/2009-H1 Not Detected (NOT DETECT); Influenza A/H1 Not Detected (NOT DETECT); Influenza A/H3 Not Detected (NOT DETECT); Influenza B Not Detected (NOT DETECT); Mycoplasma pneumoniae Not Detected (NOT DETECT); Parainfluenza Virus 1 Not Detected (NOT DETECT); Parainfluenza Virus 2 Not Detected (NOT DETECT); Parainfluenza Virus 3 Not Detected (NOT DETECT); Parainfluenza Virus 4 Not Detected (NOT DETECT); Respiratory Syncytial Virus Not Detected (NOT DETECT)
--- NOTE | 2020-01-06 22:22 | NUR ---
2218 ENGINE DESIGNER CALLED AND STATED PATIENTS HR WAS 160. WENT IN TO CHECK ON PATIENT; STATED DID NOT FEEL ABNORMAL. ALSO STATED HAD GOTTEN UP TO USE THE RESTROOM. WCTM.
--- NOTE | 2020-01-07 04:16 | NUR ---
SHIFT SUMMARY A/O, ABLE TO MAKE NEEDS KNOWN. COOPERATIVE WITH CARE. CALLS AND ANSWERS QUESTIONS APPROPRIATELY. INDEPENDENT IN THE ROOM. NO C/O PAIN/DISCOMFORT. TELE RUNNING AFIB WITH RATE RANGING FROM 110-150/60 WHEN UP WALKING AROUND. HR RETURNS AFTER RESTING. DIASTOLIC NUMBER REMAINS ABOVE 100. NO OTHER ACUTE CHANGES NOTED OVERNIGHT. APPEARED TO REST OFF AND ON. BED IN LOWEST POSITION. CALL LIGHT AND BELONGINGS WITHIN REACH. WCTM. REPORT TO ONCOMING RN.
[2020-01-07 04:46] LABS: Anion Gap 7 mmol/L (6-16); Blood Urea Nitrogen 15 mg/dL (8-24); Bun/Creatinine Ratio 18.8 (12.0-20.0); CO2, Blood 27 mmol/L (21-32); Chloride, Blood 108 mmol/L (98-108); Glomerular Filtration Rate >60 (60-); Glucose, Blood 132 mg/dL (70-99); Potassium, Blood 4.2 mmol/L (3.5-5.5); Sodium, Blood 142 mmol/L (136-145)
--- NOTE | 2020-01-07 13:01 | NUR ---
Patient is lying in bed and resting but easily awakens to the sound of his name. Patient admits to being physically weak and tired but then states that he feels the same way emotionally/spiritually as well. Patient shares that he struggles with depression at times. As I try to unpack that patient begins to fall asleep even while he is talking. I then provide prayer for patient. Patient begins weeping through the prayer. At it's conclusion patient repeatedly says that the prayer was what he needed. I will continue to remain available to patient and family.
--- NOTE | 2020-01-07 17:54 | NUR ---
SUMMARY PT DENIES PAIN, SLIGHT SOB WITH SHOWER AND TIRED AFTER ACTIVITY. PT STATES HE IS FEELING BETTER AND HOPES TO BE DISCHARGED TOMORROW. PT CONTINUES WITH SLIGHT BLE SWELLING
--- NOTE | 2020-01-08 04:20 | NUR ---
SHIFT SUMMARY: VSS. AFEB. 02 90-92% ON 1L. WEARING CPAP AT HS. VICTOR MANUEL WELL. DENIES N/V/D TONIGHT. UP INDEPENDENTLY IN ROOM. HAS SLEPT WELL MUCH OF THE NIGHT. NO ACUTE CHANGES. WILL CONT TO MONITOR.
[2020-01-08 05:13] LABS: Anion Gap 6 mmol/L (6-16); Blood Urea Nitrogen 22 mg/dL (8-24); Bun/Creatinine Ratio 25.7 (12.0-20.0); CO2, Blood 29 mmol/L (21-32); Calcium, Blood 8.6 mg/dL (8.5-10.1); Chloride, Blood 106 mmol/L (98-108); Creatinine, Blood 0.86 mg/dL (0.60-1.20); Glomerular Filtration Rate >60 (60-); Glucose, Blood 87 mg/dL (70-99); Potassium, Blood 4.1 mmol/L (3.5-5.5); Sodium, Blood 141 mmol/L (136-145)
[2020-01-08] MEDS ORDERED: SPIR25 PO (11:26)
[2020-01-08] MEDS ORDERED: METO10 PO (11:26)
--- NOTE | 2020-01-08 13:09 | NUR ---
DISCHARGE SUMMARY PT DISCHARGED TO HOME. PT LEFT ROOM VIA WHEELCHAIR WITH ELECTRIC DEICER ASSEMBLER ESCORT TO MEET UP WITH TAXI AT 1300. IV DC'D AND BELONGINGS RETURNED. ALL DISCHARGE INSTRUCTIONS DISCUSSED, ALL QUESTIONS ANSWERED. PT AGREES TO FOLLOW UP WITH PCP AND CNC MACHINIST.
== END 2020-01-08 13:13 | disposition home or self-care (01) | DRG 291 ==
LOC: ER 09:37 → MEDS 14:07 → ER 15:11 → MEDS 15:17
PROVIDERS: Internal Medicine; Physician Assistant; ADMIT Internal Medicine
DX: I11.0 Hypertensive heart disease with heart failure (principal); I50.31 Acute diastolic (congestive) heart failure; J96.01 Acute respiratory failure with hypoxia; I48.20 Chronic atrial fibrillation, unspecified; G47.33 Obstructive sleep apnea (adult) (pediatric); I25.10 Atherosclerotic heart disease of native coronary artery without angina pectoris; E11.9 Type 2 diabetes mellitus without complications; J44.9 Chronic obstructive pulmonary disease, unspecified; K21.9 Gastro-esophageal reflux disease without esophagitis; F32.9 Major depressive disorder, single episode, unspecified; F60.9 Personality disorder, unspecified; E66.01 Morbid (severe) obesity due to excess calories; Z68.36 Body mass index [BMI] 36.0-36.9, adult; I25.2 Old myocardial infarction; Z95.5 Presence of coronary angioplasty implant and graft; Z86.73 Personal history of transient ischemic attack (TIA), and cerebral infarction without residual deficits; Z79.82 Long term (current) use of aspirin; Z79.84 Long term (current) use of oral hypoglycemic drugs
CPT/HCPCS: 0099U; 36415; 71045; 80048; 80053; 81001; 82947; 83880; 85025; 94640; 94660; 94760; 94762; 96361; 96374; 96375; 96376; 99285-25; A9270; A9270-GY; G0378; J1940; J2405; J2930; J7030

== ENCOUNTER 2020-02-15 15:12 | Emergency (ER) | payer OTHER ==
[~2020-02-15] VITALS: Ht 180.3 cm; Wt 121.1 kg
[~2020-02-15 15:12] MED LIST changes: +METO10 PO; +SPIR25 PO
[2020-02-15 15:37] LABS: BASOPHILS ABSOLUTE AUTO 0.03 K/mm3 (0.00-0.23); BASOPHILS PERCENT AUTO 0 % (0-2); EOSINOPHILS ABSOLUTE AUTO 0.09 K/mm3 (0.00-0.68); EOSINOPHILS PERCENT AUTO 1 % (0-6); Hematocrit 49.1 % (37.0-53.0); Hemoglobin 15.6 g/dL (13.5-17.5); IMMATURE GRAN ABSOLUTE AUTO 0.02 K/mm3 (0.00-0.10); IMMATURE GRAN PERCENT AUTO 0 % (0-1); LYMPHOCYTES ABSOLUTE AUTO 1.46 K/mm3 (0.84-5.20); LYMPHOCYTES PERCENT AUTO 16 % (21-46); MONOCYTES ABSOLUTE AUTO 0.49 K/mm3 (0.16-1.47); MONOCYTES PERCENT AUTO 6 % (4-13); Mean Corpuscular HGB 27.9 pg (26.0-34.0); Mean Corpuscular HGB Conc 31.8 g/dL (31.5-36.5); Mean Corpuscular Volume 88 fL (80-100); Mean Platelet Volume 11.8 fL (9.1-12.4); NEUTROPHILS ABSOLUTE AUTO 6.85 K/mm3 (1.96-9.15); NEUTROPHILS PERCENT AUTO 77 % (41-73); Platelet Count 186 K/mm3 (150-400); RDW Coefficient Variation 14.6 % (11.7-14.2); RDW Standard Deviation 46.7 fL (35.1-46.3); White Blood Cell Count 8.94 K/mm3 (4.00-11.30)
[2020-02-15 15:45] LABS: Anion Gap 7 mmol/L (6-16); Blood Urea Nitrogen 20 mg/dL (8-24); Bun/Creatinine Ratio 23.4 (12.0-20.0); CO2, Blood 24 mmol/L (21-32); Calcium, Blood 8.6 mg/dL (8.5-10.1); Chloride, Blood 108 mmol/L (98-108); Creatinine, Blood 0.86 mg/dL (0.60-1.20); Glomerular Filtration Rate >60 (60-); Glucose, Blood 155 mg/dL (70-99); Potassium, Blood 4.4 mmol/L (3.5-5.5); Sodium, Blood 139 mmol/L (136-145)
[2020-02-15] MEDS ORDERED: Roxicodone5 MG PO (16:43)
== END 2020-02-15 17:11 | disposition home or self-care (01) ==
LOC: ER 15:12
PROVIDERS: Emergency Medicine
DX: S09.90XA Unspecified injury of head, initial encounter (principal); S16.1XXA Strain of muscle, fascia and tendon at neck level, initial encounter; S66.911A Strain of unspecified muscle, fascia and tendon at wrist and hand level, right hand, initial encounter; S29.9XXA Unspecified injury of thorax, initial encounter; S39.91XA Unspecified injury of abdomen, initial encounter; I48.20 Chronic atrial fibrillation, unspecified; I11.0 Hypertensive heart disease with heart failure; I50.22 Chronic systolic (congestive) heart failure; I25.10 Atherosclerotic heart disease of native coronary artery without angina pectoris; I25.2 Old myocardial infarction; J44.9 Chronic obstructive pulmonary disease, unspecified; E11.9 Type 2 diabetes mellitus without complications; F32.9 Major depressive disorder, single episode, unspecified; G47.33 Obstructive sleep apnea (adult) (pediatric); E66.01 Morbid (severe) obesity due to excess calories; Z79.02 Long term (current) use of antithrombotics/antiplatelets; Z86.73 Personal history of transient ischemic attack (TIA), and cerebral infarction without residual deficits; Z99.89 Dependence on other enabling machines and devices; Z68.37 Body mass index [BMI] 37.0-37.9, adult
CPT/HCPCS: 70450; 71260; 72125; 73110; 73130; 74177; 80048; 85025; 96374-59; 96375-59; 99284-25; J1170; J1200; J1720; J2405; Q9967

== ENCOUNTER 2020-03-01 13:34 | Emergency (ER) | payer OTHER ==
[~2020-03-01] VITALS: Ht 175.3 cm; Wt 129.3 kg
[~2020-03-01 13:34] MED LIST changes: +Roxicodone5 MG PO
[2020-03-01 14:14] LABS: BASOPHILS ABSOLUTE AUTO 0.02 K/mm3 (0.00-0.23); BASOPHILS PERCENT AUTO 0 % (0-2); EOSINOPHILS ABSOLUTE AUTO 0.14 K/mm3 (0.00-0.68); EOSINOPHILS PERCENT AUTO 2 % (0-6); Hematocrit 49.2 % (37.0-53.0); Hemoglobin 15.3 g/dL (13.5-17.5); IMMATURE GRAN ABSOLUTE AUTO 0.02 K/mm3 (0.00-0.10); IMMATURE GRAN PERCENT AUTO 0 % (0-1); LYMPHOCYTES ABSOLUTE AUTO 1.38 K/mm3 (0.84-5.20); LYMPHOCYTES PERCENT AUTO 17 % (21-46); MONOCYTES ABSOLUTE AUTO 0.48 K/mm3 (0.16-1.47); MONOCYTES PERCENT AUTO 6 % (4-13); Mean Corpuscular HGB 27.4 pg (26.0-34.0); Mean Corpuscular HGB Conc 31.1 g/dL (31.5-36.5); Mean Corpuscular Volume 88 fL (80-100); Mean Platelet Volume 11.4 fL (9.1-12.4); NEUTROPHILS ABSOLUTE AUTO 6.09 K/mm3 (1.96-9.15); NEUTROPHILS PERCENT AUTO 75 % (41-73); Platelet Count 165 K/mm3 (150-400); RDW Coefficient Variation 14.8 % (11.7-14.2); RDW Standard Deviation 47.8 fL (35.1-46.3); Red Blood Cell Count 5.58 M/mm3 (4.30-5.90); White Blood Cell Count 8.13 K/mm3 (4.00-11.30)
[2020-03-01 14:31] LABS: Alanine Aminotransfer (ALT/SGP 25 U/L (12-78); Albumin, Blood 3.6 g/dL (3.4-5.0); Albumin/Globulin Ratio 0.9 (0.8-1.8); Alk Phos 79 U/L (50-136); Anion Gap 5 mmol/L (6-16); Aspartate Aminotrans (AST/SGOT 12 U/L (12-37); Bilirubin, Total 0.4 mg/dL (0.1-1.0); Blood Urea Nitrogen 12 mg/dL (8-24); Bun/Creatinine Ratio 14.1 (12.0-20.0); CO2, Blood 26 mmol/L (21-32); Calcium, Blood 8.6 mg/dL (8.5-10.1); Chloride, Blood 110 mmol/L (98-108); Creatinine, Blood 0.85 mg/dL (0.60-1.20); Globulin, Blood 3.8 g/dL (2.2-4.0); Glomerular Filtration Rate >60 (60-); Glucose, Blood 106 mg/dL (70-99); Potassium, Blood 4.1 mmol/L (3.5-5.5); Sodium, Blood 141 mmol/L (136-145); Total Protein, Blood 7.4 g/dL (6.4-8.2); Troponin I <0.015 ng/mL (0.000-0.040)
== END 2020-03-01 15:37 | disposition home or self-care (01) ==
LOC: ER 13:34
PROVIDERS: Emergency Medicine
DX: F41.9 Anxiety disorder, unspecified (principal); R07.9 Chest pain, unspecified; I48.20 Chronic atrial fibrillation, unspecified; I25.2 Old myocardial infarction; I11.0 Hypertensive heart disease with heart failure; I50.32 Chronic diastolic (congestive) heart failure; J44.9 Chronic obstructive pulmonary disease, unspecified; E11.9 Type 2 diabetes mellitus without complications; F32.9 Major depressive disorder, single episode, unspecified; G47.33 Obstructive sleep apnea (adult) (pediatric); I25.10 Atherosclerotic heart disease of native coronary artery without angina pectoris; Z91.09 Other allergy status, other than to drugs and biological substances; Z91.048 Other nonmedicinal substance allergy status; Z79.899 Other long term (current) drug therapy; Z79.82 Long term (current) use of aspirin
CPT/HCPCS: 36415; 71046; 80053; 83690; 84484; 85025; 93005; 93010; 99285-25; A9270-GY

== ENCOUNTER 2020-03-07 14:18 | Emergency (ER) | payer OTHER ==
[~2020-03-07] VITALS: Ht 180.3 cm; Wt 124.3 kg
[2020-03-07 14:49] LABS: BASOPHILS ABSOLUTE AUTO 0.01 K/mm3 (0.00-0.23); BASOPHILS PERCENT AUTO 0 % (0-2); EOSINOPHILS ABSOLUTE AUTO 0.07 K/mm3 (0.00-0.68); EOSINOPHILS PERCENT AUTO 1 % (0-6); Hematocrit 46.2 % (37.0-53.0); Hemoglobin 14.5 g/dL (13.5-17.5); IMMATURE GRAN ABSOLUTE AUTO 0.02 K/mm3 (0.00-0.10); IMMATURE GRAN PERCENT AUTO 0 % (0-1); LYMPHOCYTES ABSOLUTE AUTO 1.44 K/mm3 (0.84-5.20); LYMPHOCYTES PERCENT AUTO 16 % (21-46); MONOCYTES PERCENT AUTO 6 % (4-13); Mean Corpuscular HGB Conc 31.4 g/dL (31.5-36.5); Mean Corpuscular Volume 89 fL (80-100); Mean Platelet Volume 11.5 fL (9.1-12.4); NEUTROPHILS ABSOLUTE AUTO 6.78 K/mm3 (1.96-9.15); NEUTROPHILS PERCENT AUTO 77 % (41-73); Platelet Count 172 K/mm3 (150-400); RDW Coefficient Variation 15.3 % (11.7-14.2); RDW Standard Deviation 49.9 fL (35.1-46.3); Red Blood Cell Count 5.18 M/mm3 (4.30-5.90); White Blood Cell Count 8.82 K/mm3 (4.00-11.30)
[2020-03-07 15:09] LABS: Alanine Aminotransfer (ALT/SGP 25 U/L (12-78); Albumin, Blood 3.6 g/dL (3.4-5.0); Alk Phos 69 U/L (50-136); Anion Gap 6 mmol/L (6-16); Aspartate Aminotrans (AST/SGOT 16 U/L (12-37); Bilirubin, Total 0.6 mg/dL (0.1-1.0); Blood Urea Nitrogen 12 mg/dL (8-24); Bun/Creatinine Ratio 14.1 (12.0-20.0); CO2, Blood 26 mmol/L (21-32); Calcium, Blood 8.5 mg/dL (8.5-10.1); Chloride, Blood 112 mmol/L (98-108); Creatinine, Blood 0.85 mg/dL (0.60-1.20); Globulin, Blood 3.6 g/dL (2.2-4.0); Glomerular Filtration Rate >60 (60-); Glucose, Blood 114 mg/dL (70-99); Potassium, Blood 4.4 mmol/L (3.5-5.5); Sodium, Blood 144 mmol/L (136-145); Total Protein, Blood 7.2 g/dL (6.4-8.2); Troponin I <0.015 ng/mL (0.000-0.040)
== END 2020-03-07 16:15 | disposition home or self-care (01) ==
LOC: ER 14:18
PROVIDERS: Emergency Medicine
DX: F41.0 Panic disorder [episodic paroxysmal anxiety] (principal); R07.9 Chest pain, unspecified; I25.2 Old myocardial infarction; I48.91 Unspecified atrial fibrillation; J44.9 Chronic obstructive pulmonary disease, unspecified; E11.9 Type 2 diabetes mellitus without complications; I25.10 Atherosclerotic heart disease of native coronary artery without angina pectoris; I11.0 Hypertensive heart disease with heart failure; I50.32 Chronic diastolic (congestive) heart failure; F32.9 Major depressive disorder, single episode, unspecified; Z91.09 Other allergy status, other than to drugs and biological substances; Z91.048 Other nonmedicinal substance allergy status; Z79.899 Other long term (current) drug therapy; Z79.82 Long term (current) use of aspirin
CPT/HCPCS: 71046; 80053; 83735; 83880; 84484; 85025; 93005; 93010; 99285-25

== ENCOUNTER 2020-03-15 11:55 | Emergency (ER) | payer OTHER ==
[~2020-03-15] VITALS: Ht 180.3 cm; Wt 120.2 kg
[2020-03-15 12:24] LABS: BASOPHILS ABSOLUTE AUTO 0.02 K/mm3 (0.00-0.23); BASOPHILS PERCENT AUTO 0 % (0-2); EOSINOPHILS ABSOLUTE AUTO 0.08 K/mm3 (0.00-0.68); EOSINOPHILS PERCENT AUTO 1 % (0-6); Hematocrit 47.5 % (37.0-53.0); Hemoglobin 15.2 g/dL (13.5-17.5); IMMATURE GRAN ABSOLUTE AUTO 0.02 K/mm3 (0.00-0.10); IMMATURE GRAN PERCENT AUTO 0 % (0-1); LYMPHOCYTES ABSOLUTE AUTO 1.19 K/mm3 (0.84-5.20); LYMPHOCYTES PERCENT AUTO 16 % (21-46); MONOCYTES PERCENT AUTO 5 % (4-13); Mean Corpuscular HGB 28.5 pg (26.0-34.0); Mean Corpuscular Volume 89 fL (80-100); Mean Platelet Volume 11.8 fL (9.1-12.4); NEUTROPHILS ABSOLUTE AUTO 5.65 K/mm3 (1.96-9.15); NEUTROPHILS PERCENT AUTO 77 % (41-73); Platelet Count 161 K/mm3 (150-400); RDW Standard Deviation 48.9 fL (35.1-46.3); Red Blood Cell Count 5.34 M/mm3 (4.30-5.90); White Blood Cell Count 7.36 K/mm3 (4.00-11.30)
[2020-03-15 12:51] LABS: Alanine Aminotransfer (ALT/SGP 24 U/L (12-78); Albumin, Blood 3.7 g/dL (3.4-5.0); Albumin/Globulin Ratio 0.9 (0.8-1.8); Alk Phos 71 U/L (50-136); Anion Gap 6 mmol/L (6-16); Aspartate Aminotrans (AST/SGOT 21 U/L (12-37); Bilirubin, Total 1.3 mg/dL (0.1-1.0); Blood Urea Nitrogen 18 mg/dL (8-24); Bun/Creatinine Ratio 20.6 (12.0-20.0); CO2, Blood 25 mmol/L (21-32); Calcium, Blood 8.9 mg/dL (8.5-10.1); Chloride, Blood 110 mmol/L (98-108); Creatinine, Blood 0.87 mg/dL (0.60-1.20); Globulin, Blood 3.9 g/dL (2.2-4.0); Glomerular Filtration Rate >60 (60-); Glucose, Blood 118 mg/dL (70-99); Potassium, Blood 3.4 mmol/L (3.5-5.5); Sodium, Blood 141 mmol/L (136-145); Total Protein, Blood 7.6 g/dL (6.4-8.2); Troponin I <0.015 ng/mL (0.000-0.040)
== END 2020-03-15 16:01 | disposition home or self-care (01) ==
LOC: ER 11:55
PROVIDERS: Emergency Medicine
DX: I48.91 Unspecified atrial fibrillation (principal); I10 Essential (primary) hypertension; E11.9 Type 2 diabetes mellitus without complications; J44.9 Chronic obstructive pulmonary disease, unspecified; F32.9 Major depressive disorder, single episode, unspecified; I25.10 Atherosclerotic heart disease of native coronary artery without angina pectoris; Z86.73 Personal history of transient ischemic attack (TIA), and cerebral infarction without residual deficits; Z91.09 Other allergy status, other than to drugs and biological substances; Z91.048 Other nonmedicinal substance allergy status; Z79.82 Long term (current) use of aspirin; Z79.899 Other long term (current) drug therapy
CPT/HCPCS: 71045; 80053; 83880; 84484; 85025; 93005; 93010; 99285-25

== ENCOUNTER 2020-03-23 14:35 | Emergency (ER) | payer OTHER ==
[~2020-03-23] VITALS: Ht 180.3 cm; Wt 124.3 kg
[2020-03-23 16:32] LABS: BASOPHILS ABSOLUTE AUTO 0.02 K/mm3 (0.00-0.23); BASOPHILS PERCENT AUTO 0 % (0-2); EOSINOPHILS ABSOLUTE AUTO 0.09 K/mm3 (0.00-0.68); EOSINOPHILS PERCENT AUTO 1 % (0-6); Hematocrit 47.8 % (37.0-53.0); Hemoglobin 15.1 g/dL (13.5-17.5); IMMATURE GRAN ABSOLUTE AUTO 0.01 K/mm3 (0.00-0.10); IMMATURE GRAN PERCENT AUTO 0 % (0-1); LYMPHOCYTES ABSOLUTE AUTO 1.35 K/mm3 (0.84-5.20); LYMPHOCYTES PERCENT AUTO 19 % (21-46); MONOCYTES PERCENT AUTO 6 % (4-13); Mean Corpuscular HGB 28.3 pg (26.0-34.0); Mean Corpuscular HGB Conc 31.6 g/dL (31.5-36.5); Mean Corpuscular Volume 90 fL (80-100); Mean Platelet Volume 11.4 fL (9.1-12.4); NEUTROPHILS ABSOLUTE AUTO 5.23 K/mm3 (1.96-9.15); NEUTROPHILS PERCENT AUTO 74 % (41-73); Platelet Count 168 K/mm3 (150-400); RDW Coefficient Variation 14.6 % (11.7-14.2); RDW Standard Deviation 48.5 fL (35.1-46.3); Red Blood Cell Count 5.33 M/mm3 (4.30-5.90)
[2020-03-23 17:23] LABS: Alanine Aminotransfer (ALT/SGP 21 U/L (12-78); Albumin, Blood 3.5 g/dL (3.4-5.0); Albumin/Globulin Ratio 1.1 (0.8-1.8); Alk Phos 62 U/L (50-136); Anion Gap 5 mmol/L (6-16); Aspartate Aminotrans (AST/SGOT 14 U/L (12-37); Bilirubin, Total 0.5 mg/dL (0.1-1.0); Blood Urea Nitrogen 8 mg/dL (8-24); Bun/Creatinine Ratio 10.1 (12.0-20.0); CO2, Blood 24 mmol/L (21-32); Calcium, Blood 8.7 mg/dL (8.5-10.1); Chloride, Blood 111 mmol/L (98-108); Creatinine, Blood 0.79 mg/dL (0.60-1.20); Globulin, Blood 3.3 g/dL (2.2-4.0); Glomerular Filtration Rate >60 (60-); Glucose, Blood 97 mg/dL (70-99); Potassium, Blood 4.1 mmol/L (3.5-5.5); Sodium, Blood 140 mmol/L (136-145); Total Protein, Blood 6.8 g/dL (6.4-8.2)
[2020-03-23] MEDS ORDERED: ACETAMINOPHEN500 MG PO (17:39)
[2020-03-23] MEDS ORDERED: ONDA4ODT SL (17:39)
== END 2020-03-23 18:02 | disposition home or self-care (01) ==
LOC: ER 14:35
PROVIDERS: Emergency Medicine
DX: I10 Essential (primary) hypertension (principal); R11.10 Vomiting, unspecified; Z91.09 Other allergy status, other than to drugs and biological substances; Z88.8 Allergy status to other drugs, medicaments and biological substances; Z79.82 Long term (current) use of aspirin; Z79.899 Other long term (current) drug therapy; I25.2 Old myocardial infarction; I48.91 Unspecified atrial fibrillation; E11.9 Type 2 diabetes mellitus without complications; J45.909 Unspecified asthma, uncomplicated; F32.9 Major depressive disorder, single episode, unspecified; J44.9 Chronic obstructive pulmonary disease, unspecified; Z86.73 Personal history of transient ischemic attack (TIA), and cerebral infarction without residual deficits; I25.10 Atherosclerotic heart disease of native coronary artery without angina pectoris
CPT/HCPCS: 36415; 71045; 80053; 83690; 84443; 85025; 93005; 93010; 99284-25

== ENCOUNTER → 2020-03-30 | Outpatient (CLI) | payer OTHER ==
[~2020-03-30] MED LIST changes: +ACETAMINOPHEN500 MG PO; +ONDA4ODT SL
[2020-04-01 13:13] LABS: Stool Occult Bld Immuno 1 Negative (NEGATIVE)
== END | disposition home or self-care (01) ==
LOC: LAB 13:00 → LAB SHORT 13:00
PROVIDERS: Family Medicine
DX: Z11.1 Encounter for screening for respiratory tuberculosis (principal); E11.9 Type 2 diabetes mellitus without complications; J45.998 Other asthma; F33.9 Major depressive disorder, recurrent, unspecified
CPT/HCPCS: G0328

== ENCOUNTER 2020-06-21 16:00 | Emergency (ER) | payer OTHER ==
[~2020-06-21] VITALS: Ht 180.3 cm; Wt 137.4 kg
[2020-06-21 16:34] LABS: BASOPHILS ABSOLUTE AUTO 0.01 K/mm3 (0.00-0.23); BASOPHILS PERCENT AUTO 0 % (0-2); EOSINOPHILS ABSOLUTE AUTO 0.15 K/mm3 (0.00-0.68); EOSINOPHILS PERCENT AUTO 2 % (0-6); Hematocrit 45.8 % (37.0-53.0); Hemoglobin 14.2 g/dL (13.5-17.5); IMMATURE GRAN ABSOLUTE AUTO 0.02 K/mm3 (0.00-0.10); IMMATURE GRAN PERCENT AUTO 0 % (0-1); LYMPHOCYTES ABSOLUTE AUTO 1.09 K/mm3 (0.84-5.20); LYMPHOCYTES PERCENT AUTO 13 % (21-46); MONOCYTES ABSOLUTE AUTO 0.46 K/mm3 (0.16-1.47); MONOCYTES PERCENT AUTO 6 % (4-13); Mean Corpuscular HGB 26.9 pg (26.0-34.0); Mean Corpuscular Volume 87 fL (80-100); Mean Platelet Volume 11.5 fL (9.1-12.4); NEUTROPHILS PERCENT AUTO 79 % (41-73); Platelet Count 176 K/mm3 (150-400); RDW Coefficient Variation 14.3 % (11.7-14.2); RDW Standard Deviation 45.4 fL (35.1-46.3); Red Blood Cell Count 5.28 M/mm3 (4.30-5.90); White Blood Cell Count 8.23 K/mm3 (4.00-11.30)
[2020-06-21 17:04] LABS: Alanine Aminotransfer (ALT/SGP 24 U/L (12-78); Albumin, Blood 3.5 g/dL (3.4-5.0); Albumin/Globulin Ratio 0.9 (0.8-1.8); Alk Phos 66 U/L (50-136); Anion Gap 5 mmol/L (6-16); Aspartate Aminotrans (AST/SGOT 11 U/L (12-37); Bilirubin, Total 0.5 mg/dL (0.1-1.0); Blood Urea Nitrogen 12 mg/dL (8-24); Bun/Creatinine Ratio 14.6 (12.0-20.0); CO2, Blood 26 mmol/L (21-32); Calcium, Blood 8.5 mg/dL (8.5-10.1); Chloride, Blood 112 mmol/L (98-108); Creatinine, Blood 0.82 mg/dL (0.60-1.20); Globulin, Blood 3.9 g/dL (2.2-4.0); Glomerular Filtration Rate >60 (60-); Glucose, Blood 133 mg/dL (70-99); Potassium, Blood 4.1 mmol/L (3.5-5.5); Sodium, Blood 143 mmol/L (136-145); Total Protein, Blood 7.4 g/dL (6.4-8.2); Troponin I <0.015 ng/mL (0.000-0.040)
[2020-06-21] MEDS ORDERED: ALBU90OI6 INH (17:37)
== END 2020-06-21 18:06 | disposition home or self-care (01) ==
LOC: ER 16:00
PROVIDERS: Physician Assistant
DX: J44.1 Chronic obstructive pulmonary disease with (acute) exacerbation (principal); Z91.048 Other nonmedicinal substance allergy status; Z91.09 Other allergy status, other than to drugs and biological substances; Z79.899 Other long term (current) drug therapy; Z79.82 Long term (current) use of aspirin; I10 Essential (primary) hypertension; I48.91 Unspecified atrial fibrillation; E11.9 Type 2 diabetes mellitus without complications; F32.9 Major depressive disorder, single episode, unspecified; I25.10 Atherosclerotic heart disease of native coronary artery without angina pectoris; Z86.73 Personal history of transient ischemic attack (TIA), and cerebral infarction without residual deficits; I25.2 Old myocardial infarction
CPT/HCPCS: 71046; 80053; 83880; 84484; 85025; 93005; 93010; 94640; 99285-25; J1100

== ENCOUNTER 2020-08-06 15:33 | Observation (INO) | payer OTHER ==
[~2020-08-06] VITALS: Ht 180.3 cm; Wt 136.1 kg
[~2020-08-06 15:33] MED LIST changes: +ALBU90OI6 INH; +B-121000 MC7 PO; -BUDE10.22 INH; +METF500 PO; -METO10 PO; -METO25ER PO; +METO50ER PO; +METO5A PO; +NITR.4SL SL; +NITROGLYCERN TD; +Norco 5-325 Ta1 EACH PO; +SPIRIVA RESPIMAT4 G3 INH; -SPIRIVA RESPIMAT4 GM INH; +SYMBICORT 80-10.2 GM INH
[2020-08-06 16:00] LABS: BASOPHILS ABSOLUTE AUTO 0.02 K/mm3 (0.00-0.23); BASOPHILS PERCENT AUTO 0 % (0-2); EOSINOPHILS PERCENT AUTO 2 % (0-6); Hematocrit 49.3 % (37.0-53.0); Hemoglobin 15.1 g/dL (13.5-17.5); IMMATURE GRAN ABSOLUTE AUTO 0.07 K/mm3 (0.00-0.10); IMMATURE GRAN PERCENT AUTO 1 % (0-1); LYMPHOCYTES ABSOLUTE AUTO 1.51 K/mm3 (0.84-5.20); LYMPHOCYTES PERCENT AUTO 15 % (21-46); MONOCYTES ABSOLUTE AUTO 0.78 K/mm3 (0.16-1.47); MONOCYTES PERCENT AUTO 8 % (4-13); Mean Corpuscular HGB 25.7 pg (26.0-34.0); Mean Corpuscular HGB Conc 30.6 g/dL (31.5-36.5); Mean Corpuscular Volume 84 fL (80-100); Mean Platelet Volume 11.9 fL (9.1-12.4); NEUTROPHILS ABSOLUTE AUTO 7.72 K/mm3 (1.96-9.15); NEUTROPHILS PERCENT AUTO 75 % (41-73); Platelet Count 213 K/mm3 (150-400); RDW Coefficient Variation 16.4 % (11.7-14.2); RDW Standard Deviation 50.3 fL (35.1-46.3); Red Blood Cell Count 5.87 M/mm3 (4.30-5.90)
[2020-08-06 16:25] LABS: Alanine Aminotransfer (ALT/SGP 37 U/L (12-78); Albumin, Blood 3.3 g/dL (3.4-5.0); Albumin/Globulin Ratio 0.8 (0.8-1.8); Alk Phos 71 U/L (50-136); Anion Gap 6 mmol/L (6-16); Aspartate Aminotrans (AST/SGOT 24 U/L (12-37); Bilirubin, Total 0.6 mg/dL (0.1-1.0); Blood Urea Nitrogen 17 mg/dL (8-24); Bun/Creatinine Ratio 20.2 (12.0-20.0); CO2, Blood 28 mmol/L (21-32); Calcium, Blood 8.7 mg/dL (8.5-10.1); Chloride, Blood 107 mmol/L (98-108); Creatinine, Blood 0.84 mg/dL (0.60-1.20); Globulin, Blood 4.3 g/dL (2.2-4.0); Glomerular Filtration Rate >60 (60-); Glucose, Blood 123 mg/dL (70-99); Potassium, Blood 4.5 mmol/L (3.5-5.5); Sodium, Blood 141 mmol/L (136-145); Total Protein, Blood 7.6 g/dL (6.4-8.2); Troponin I <0.015 ng/mL (0.000-0.040)
[2020-08-06 19:19] LABS: Source, Urine Clean Catch
[2020-08-06 19:21] LABS: Bilirubin, Urine Neg (Neg); Blood, Urine 1+ (Neg); Glucose Qualitative, Urine Neg (Neg); Ketones, Urine Neg (Neg); Leukocyte Esterase, Urine Neg (Neg); Nitrite, Urine Neg (Neg); Protein, Urine 1+ (Neg); Urobilinogen, Urine NORM (Normal)
[2020-08-06 19:26] LABS: Appearance, Urine Clear (Clear); Color, Urine Yellow (P-Yellow)
[2020-08-06 19:33] LABS: Amorphous Light (0-Heavy); Bacteria Not Seen /hpf; Mucus Light (0-Heavy); Squamous Epithelial Cells Not Seen /hpf (Few); White Blood Cells, Urine Not Seen /hpf (0-5)
[2020-08-06 19:42] LABS: Troponin I <0.015 ng/mL (0.000-0.040)
[2020-08-06] MEDS ORDERED: ONDA4 PO (21:51)
[2020-08-06 22:38] LABS: Magnesium, Blood 2.2 mg/dL (1.6-2.4)
--- NOTE | 2020-08-07 03:11 | NUR ---
ROSE GRADER SUMMARY Patient A&Ox4 with baseline memory deficits s/p multiple remote CVA's. Cooperative with care. Could use some dietary education regarding his diabetes. OOB with minimal standby and supervision for safety. No episodes of lightheadedness noted since admission. Patient lives alone at [facility] and neighbor comes over and helps him with meds and meals. Home Service Demonstrator referral requested.
[2020-08-07 04:35] LABS: BASOPHILS ABSOLUTE AUTO 0.03 K/mm3 (0.00-0.23); BASOPHILS PERCENT AUTO 0 % (0-2); EOSINOPHILS ABSOLUTE AUTO 0.19 K/mm3 (0.00-0.68); EOSINOPHILS PERCENT AUTO 2 % (0-6); Hematocrit 42.8 % (37.0-53.0); Hemoglobin 13.3 g/dL (13.5-17.5); IMMATURE GRAN ABSOLUTE AUTO 0.04 K/mm3 (0.00-0.10); IMMATURE GRAN PERCENT AUTO 0 % (0-1); LYMPHOCYTES ABSOLUTE AUTO 1.59 K/mm3 (0.84-5.20); LYMPHOCYTES PERCENT AUTO 17 % (21-46); MONOCYTES ABSOLUTE AUTO 0.78 K/mm3 (0.16-1.47); MONOCYTES PERCENT AUTO 8 % (4-13); Mean Corpuscular HGB 26.2 pg (26.0-34.0); Mean Corpuscular HGB Conc 31.1 g/dL (31.5-36.5); Mean Corpuscular Volume 84 fL (80-100); Mean Platelet Volume 11.3 fL (9.1-12.4); NEUTROPHILS ABSOLUTE AUTO 6.98 K/mm3 (1.96-9.15); NEUTROPHILS PERCENT AUTO 73 % (41-73); Platelet Count 162 K/mm3 (150-400); RDW Coefficient Variation 16.3 % (11.7-14.2); RDW Standard Deviation 50.4 fL (35.1-46.3); Red Blood Cell Count 5.08 M/mm3 (4.30-5.90); White Blood Cell Count 9.61 K/mm3 (4.00-11.30)
[2020-08-07 04:57] LABS: Alanine Aminotransfer (ALT/SGP 32 U/L (12-78); Albumin, Blood 2.8 g/dL (3.4-5.0); Albumin/Globulin Ratio 0.8 (0.8-1.8); Alk Phos 66 U/L (50-136); Anion Gap 6 mmol/L (6-16); Aspartate Aminotrans (AST/SGOT 8 U/L (12-37); Bilirubin, Total 0.5 mg/dL (0.1-1.0); Blood Urea Nitrogen 16 mg/dL (8-24); Bun/Creatinine Ratio 20.4 (12.0-20.0); CO2, Blood 28 mmol/L (21-32); CPK Creatine Kinase 47 U/L (39-308); Calcium, Blood 8.6 mg/dL (8.5-10.1); Chloride, Blood 109 mmol/L (98-108); Creatinine, Blood 0.78 mg/dL (0.60-1.20); Globulin, Blood 3.7 g/dL (2.2-4.0); Glomerular Filtration Rate >60 (60-); Glucose, Blood 120 mg/dL (70-99); Potassium, Blood 4.1 mmol/L (3.5-5.5); Sodium, Blood 143 mmol/L (136-145); Total Protein, Blood 6.5 g/dL (6.4-8.2); Troponin I <0.015 ng/mL (0.000-0.040)
--- NOTE | 2020-08-07 10:39 | NUR ---
report received from noc shift, a+o, pt in to evauate, informed of high hr issues, taked to monitor and finger pulse taken while evaluation done, able to walk to end of reyna with no dizzyness, medicated and treated as apprpriate
[2020-08-07 11:34] LABS: CPK Creatine Kinase 49 U/L (39-308); Troponin I <0.015 ng/mL (0.000-0.040)
--- NOTE | 2020-08-07 11:37 | NUR ---
orth bp completed 120/75, 130/86 and 126/77, recorded, tolerated well (no dizzyness)
--- NOTE | 2020-08-07 12:56 | NUR ---
called and left message on 's am requesting that she visit pt, stated he was not currently complaining of pain but that he would like her to contact him munir, informed pt that message had been left
--- NOTE | 2020-08-07 15:21 | NUR ---
Brief supportive visit this afternoon. Pt is known to this bid writer from previous visits. Spoke with Bedside RN Tee and discussed case. Pt being discharged. Pt resting in bed and denies pain at this time. Pt reports feeling better. Provided brief education on the importance of routine conversations with PCP regarding his chronic illnesses. Educated on the importance of post hospital F/U with PCP. Pt V/U and reports no concerns at this time. Pt expresses appreciation of visit. Palliative Care will remain available.
--- NOTE | 2020-08-07 18:02 | NUR ---
pt was escorted to car by N sheri, iv had been removed, care, stay, medications, discharge orders and treatments had been discussed and reviewed with pt and his designated caregiver, left stating he was ready to care for himself and improve his health
[2020-08-08 10:09] LABS: ADENOVIRUS F 40/41 Not Detected (Not Detected); ASTROVIRUS Not Detected (Not Detected); C DIFFICILE TOXIN A/B Not Detected (Not Detected); CAMPYLOBACTER Not Detected (Not Detected); CRYPTOSPORIDIUM Not Detected (Not Detected); CYCLOSPORA CAYETANENSIS Not Detected (Not Detected); ENTAMOEBA HISTOLYTICA Not Detected (Not Detected); ENTEROAGGREGATIVE E COLI Not Detected (Not Detected); ENTEROPATHOGENIC E COLI Not Detected (Not Detected); ENTEROTOXIGENIC E COLI Not Detected (Not Detected); GIARDIA LAMBLIA Not Detected (Not Detected); NOROVIRUS GI/GII Not Detected (Not Detected); PLESIOMONAS SHIGELLOIDES Not Detected (Not Detected); ROTAVIRUS A Not Detected (Not Detected); SALMONELLA Not Detected (Not Detected); SAPOVIRUS Not Detected (Not Detected); SHIGA-TOXIN-PRODUCING E COLI Not Detected (Not Detected); SHIGELLA/ENTEROINVASIVE E COLI Not Detected (Not Detected); VIBRIO Not Detected (Not Detected); VIBRIO CHOLERAE Not Detected (Not Detected); YERSINIA ENTEROCOLITICA Not Detected (Not Detected)
== END 2020-08-07 16:47 | disposition home or self-care (01) ==
LOC: ER 15:33 → MEDS 15:34 → ER 21:13 → MEDS 21:13 → ER 22:30 → MEDS 22:40
PROVIDERS: Emergency Medicine; ADMIT Internal Medicine
DX: R42 Dizziness and giddiness (principal); R53.1 Weakness; R07.9 Chest pain, unspecified; I48.20 Chronic atrial fibrillation, unspecified; I25.10 Atherosclerotic heart disease of native coronary artery without angina pectoris; J44.9 Chronic obstructive pulmonary disease, unspecified; E11.9 Type 2 diabetes mellitus without complications; F32.9 Major depressive disorder, single episode, unspecified; I25.2 Old myocardial infarction; I11.0 Hypertensive heart disease with heart failure; I50.30 Unspecified diastolic (congestive) heart failure; G47.33 Obstructive sleep apnea (adult) (pediatric); G43.909 Migraine, unspecified, not intractable, without status migrainosus; E66.01 Morbid (severe) obesity due to excess calories; Z68.41 Body mass index [BMI] 40.0-44.9, adult; Z23 Encounter for immunization; Z91.041 Radiographic dye allergy status; Z91.09 Other allergy status, other than to drugs and biological substances; Z79.82 Long term (current) use of aspirin; Z79.01 Long term (current) use of anticoagulants; Z79.51 Long term (current) use of inhaled steroids; Z79.52 Long term (current) use of systemic steroids; Z79.899 Other long term (current) drug therapy; Z86.73 Personal history of transient ischemic attack (TIA), and cerebral infarction without residual deficits; Z95.5 Presence of coronary angioplasty implant and graft; Z90.49 Acquired absence of other specified parts of digestive tract; W18.30XA Fall on same level, unspecified, initial encounter; Y93.01 Activity, walking, marching and hiking; Y92.89 Other specified places as the place of occurrence of the external cause
CPT/HCPCS: 0097U; 36415; 70450; 71046; 80053; 81001; 82550; 82947; 83605; 83690; 83735; 83880; 84484; 85025; 93005; 93010; 96360; 96361; 97161; 97165; 97530; 97535; 99285-25; A9270-GY; J7030

== ENCOUNTER 2020-11-13 18:07 | Emergency (ER) | payer OTHER ==
[~2020-11-13] VITALS: Ht 180.3 cm; Wt 124.7 kg
[~2020-11-13 18:07] MED LIST changes: +ONDA4 PO
[2020-11-13 19:22] LABS: BASOPHILS ABSOLUTE AUTO 0.04 K/mm3 (0.00-0.23); BASOPHILS PERCENT AUTO 0 % (0-2); EOSINOPHILS ABSOLUTE AUTO 0.17 K/mm3 (0.00-0.68); EOSINOPHILS PERCENT AUTO 2 % (0-6); Hematocrit 46.5 % (37.0-53.0); Hemoglobin 14.7 g/dL (13.5-17.5); IMMATURE GRAN ABSOLUTE AUTO 0.02 K/mm3 (0.00-0.10); IMMATURE GRAN PERCENT AUTO 0 % (0-1); LYMPHOCYTES ABSOLUTE AUTO 2.33 K/mm3 (0.84-5.20); LYMPHOCYTES PERCENT AUTO 24 % (21-46); MONOCYTES ABSOLUTE AUTO 0.74 K/mm3 (0.16-1.47); MONOCYTES PERCENT AUTO 8 % (4-13); Mean Corpuscular HGB 27.5 pg (26.0-34.0); Mean Corpuscular HGB Conc 31.6 g/dL (31.5-36.5); Mean Corpuscular Volume 87 fL (80-100); NEUTROPHILS PERCENT AUTO 66 % (41-73); Platelet Count 221 K/mm3 (150-400); RDW Coefficient Variation 15.8 % (11.7-14.2); RDW Standard Deviation 49.8 fL (35.1-46.3); Red Blood Cell Count 5.34 M/mm3 (4.30-5.90)
[2020-11-13 19:38] LABS: Alanine Aminotransfer (ALT/SGP 60 U/L (12-78); Albumin, Blood 3.5 g/dL (3.4-5.0); Albumin/Globulin Ratio 0.8 (0.8-1.8); Alk Phos 78 U/L (50-136); Anion Gap 5 mmol/L (6-16); Aspartate Aminotrans (AST/SGOT 31 U/L (12-37); Bilirubin, Total 0.5 mg/dL (0.1-1.0); Blood Urea Nitrogen 20 mg/dL (8-24); Bun/Creatinine Ratio 19.4 (12.0-20.0); CO2, Blood 26 mmol/L (21-32); Calcium, Blood 8.9 mg/dL (8.5-10.1); Chloride, Blood 109 mmol/L (98-108); Creatinine, Blood 1.03 mg/dL (0.60-1.20); Globulin, Blood 4.3 g/dL (2.2-4.0); Glomerular Filtration Rate >60 (60-); Glucose, Blood 115 mg/dL (70-99); Potassium, Blood 4.1 mmol/L (3.5-5.5); Sodium, Blood 140 mmol/L (136-145); Total Protein, Blood 7.8 g/dL (6.4-8.2); Troponin I <0.015 ng/mL (0.000-0.040)
[2020-11-13 21:06] LABS: PCO2 Arterial 38.8 mmHg (35-45); PO2 Arterial 85.4 mmHg (80-100); pH Blood Arterial 7.36 (7.35-7.45)
== END 2020-11-13 22:28 | disposition home or self-care (01) ==
LOC: ER 18:07
PROVIDERS: Emergency Medicine
DX: R06.02 Shortness of breath (principal); I25.2 Old myocardial infarction; I10 Essential (primary) hypertension; I48.91 Unspecified atrial fibrillation; J44.9 Chronic obstructive pulmonary disease, unspecified; E11.9 Type 2 diabetes mellitus without complications; Z79.01 Long term (current) use of anticoagulants; Z79.899 Other long term (current) drug therapy; Z79.82 Long term (current) use of aspirin; Z91.041 Radiographic dye allergy status; Z91.09 Other allergy status, other than to drugs and biological substances; Z79.51 Long term (current) use of inhaled steroids
CPT/HCPCS: 36600; 71045; 80053; 82803; 84484; 85025; 93005; 93010; 94640; 99285-25

== ENCOUNTER 2021-01-31 15:15 | Emergency (ER) | payer OTHER ==
[~2021-01-31] VITALS: Ht 180.3 cm; Wt 150.1 kg
[2021-01-31 15:58] LABS: BASOPHILS ABSOLUTE AUTO 0.03 K/mm3 (0.00-0.23); BASOPHILS PERCENT AUTO 0 % (0-2); EOSINOPHILS ABSOLUTE AUTO 0.16 K/mm3 (0.00-0.68); EOSINOPHILS PERCENT AUTO 2 % (0-6); Hemoglobin 15.2 g/dL (13.5-17.5); IMMATURE GRAN ABSOLUTE AUTO 0.03 K/mm3 (0.00-0.10); IMMATURE GRAN PERCENT AUTO 0 % (0-1); LYMPHOCYTES ABSOLUTE AUTO 1.67 K/mm3 (0.84-5.20); LYMPHOCYTES PERCENT AUTO 17 % (21-46); MONOCYTES ABSOLUTE AUTO 0.57 K/mm3 (0.16-1.47); MONOCYTES PERCENT AUTO 6 % (4-13); Mean Corpuscular HGB 27.5 pg (26.0-34.0); Mean Corpuscular HGB Conc 32.3 g/dL (31.5-36.5); Mean Corpuscular Volume 85 fL (80-100); Mean Platelet Volume 11.1 fL (9.1-12.4); NEUTROPHILS ABSOLUTE AUTO 7.28 K/mm3 (1.96-9.15); NEUTROPHILS PERCENT AUTO 75 % (41-73); Platelet Count 205 K/mm3 (150-400); RDW Coefficient Variation 14.7 % (11.7-14.2); Red Blood Cell Count 5.52 M/mm3 (4.30-5.90); White Blood Cell Count 9.74 K/mm3 (4.00-11.30)
[2021-01-31 16:20] LABS: Alanine Aminotransfer (ALT/SGP 57 U/L (12-78); Albumin, Blood 3.8 g/dL (3.4-5.0); Albumin/Globulin Ratio 0.9 (0.8-1.8); Alk Phos 82 U/L (50-136); Anion Gap 7 mmol/L (6-16); Aspartate Aminotrans (AST/SGOT 25 U/L (12-37); Bilirubin, Total 0.5 mg/dL (0.1-1.0); Blood Urea Nitrogen 14 mg/dL (8-24); Bun/Creatinine Ratio 15.2 (12.0-20.0); CO2, Blood 26 mmol/L (21-32); Calcium, Blood 9.2 mg/dL (8.5-10.1); Chloride, Blood 106 mmol/L (98-108); Creatinine, Blood 0.92 mg/dL (0.60-1.20); Globulin, Blood 4.1 g/dL (2.2-4.0); Glomerular Filtration Rate >60 (60-); Glucose, Blood 119 mg/dL (70-99); Potassium, Blood 4.2 mmol/L (3.5-5.5); Sodium, Blood 139 mmol/L (136-145); Total Protein, Blood 7.9 g/dL (6.4-8.2); Troponin I <0.015 ng/mL (0.000-0.040)
== END 2021-01-31 21:52 | disposition home or self-care (01) ==
LOC: ER 15:15
PROVIDERS: Physician Assistant
DX: F41.9 Anxiety disorder, unspecified (principal); R07.9 Chest pain, unspecified
CPT/HCPCS: 71046; 80053; 83880; 84484; 85025; 93005; 93010; 99285-25

== ENCOUNTER 2022-01-20 14:39 | Observation (INO) | payer MEDICARE ==
[2022-01-20 15:30] LABS: BASOPHILS ABSOLUTE AUTO 0.04 K/mm3 (0.00-0.23); BASOPHILS PERCENT AUTO 0 % (0-2); EOSINOPHILS ABSOLUTE AUTO 0.02 K/mm3 (0.00-0.68); EOSINOPHILS PERCENT AUTO 0 % (0-6); Hematocrit 42.1 % (37.0-53.0); Hemoglobin 12.6 g/dL (13.5-17.5); IMMATURE GRAN ABSOLUTE AUTO 0.12 K/mm3 (0.00-0.10); IMMATURE GRAN PERCENT AUTO 1 % (0-1); LYMPHOCYTES ABSOLUTE AUTO 0.56 K/mm3 (0.84-5.20); LYMPHOCYTES PERCENT AUTO 3 % (21-46); MONOCYTES ABSOLUTE AUTO 1.24 K/mm3 (0.16-1.47); MONOCYTES PERCENT AUTO 6 % (4-13); Mean Corpuscular HGB 22.7 pg (26.0-34.0); Mean Corpuscular HGB Conc 29.9 g/dL (31.5-36.5); Mean Corpuscular Volume 76 fL (80-100); Mean Platelet Volume 11.7 fL (9.1-12.4); NEUTROPHILS ABSOLUTE AUTO 17.28 K/mm3 (1.96-9.15); NEUTROPHILS PERCENT AUTO 90 % (41-73); Platelet Count 253 K/mm3 (150-400); RDW Coefficient Variation 19.6 % (11.7-14.2); RDW Standard Deviation 51.5 fL (35.1-46.3); Red Blood Cell Count 5.56 M/mm3 (4.30-5.90); White Blood Cell Count 19.26 K/mm3 (4.00-11.30)
[2022-01-20 16:41] LABS: Albumin, Blood 2.7 g/dL (3.4-5.0); Albumin/Globulin Ratio 0.5 (0.8-1.8); Bilirubin, Total 1.2 mg/dL (0.1-1.0); Bun/Creatinine Ratio 36.5 (12.0-20.0); Calcium, Blood 9.1 mg/dL (8.5-10.1); Creatinine, Blood 1.56 mg/dL (0.60-1.20); Potassium, Blood 3.7 mmol/L (3.5-5.5); Total Protein, Blood 7.7 g/dL (6.4-8.2)
[2022-01-20 17:14] LABS: Influenza A, PCR NEGATIVE (NEGATIVE); Influenza B, PCR NEGATIVE (NEGATIVE); Resp Syncytial Virus, PCR NEGATIVE (NEGATIVE); SARS-Cov-2 (COVID-19) PCR, MMC NEGATIVE (NEGATIVE)
[2022-01-20 17:23] LABS: Source, Urine Clean Catch
[2022-01-20 17:48] LABS: Appearance, Urine Clear (Clear); Bilirubin, Urine Neg (Neg); Blood, Urine 2+ (Neg); Color, Urine Yellow (P-Yellow); Glucose Qualitative, Urine Neg (Neg); Ketones, Urine Neg (Neg); Leukocyte Esterase, Urine Neg (Neg); Nitrite, Urine Neg (Neg); Protein, Urine 3+ (Neg); Urobilinogen, Urine 1+ (Normal)
[2022-01-20 18:15] LABS: White Blood Cells, Urine 0-2 /hpf (0-5)
[2022-01-20 18:16] LABS: Bacteria Mod /hpf; Hyaline Casts 0-2 /lpf (0-2); Squamous Epithelial Cells Rare /hpf (Few)
--- NOTE | 2022-01-20 21:55 | NUR ---
PT REFUSED HELP/ASSISTANCE IN GETTING OUT OF BED. PT HAS IV AND TELE IN PLACED. IMPULSIVE AND ALMOST ACCIDENTALY ALMOST PULLED HIS IV FROM GETTING UP. EDUCATE PT NOTIFIED ABOUT SAFETY, ADVISE TO CALL FOR ASSITANCE IF NEEDED.
[2022-01-21 01:28] LABS: Source, Urine Clean Catch
[2022-01-21 01:32] LABS: Bilirubin, Urine Neg (Neg); Blood, Urine 2+ (Neg); Glucose Qualitative, Urine Neg (Neg); Ketones, Urine Neg (Neg); Leukocyte Esterase, Urine Neg (Neg); Nitrite, Urine Neg (Neg); Protein, Urine 2+ (Neg); Urobilinogen, Urine NORM (Normal)
[2022-01-21 01:35] LABS: Appearance, Urine Clear (Clear); Color, Urine Yellow (P-Yellow)
[2022-01-21 01:41] LABS: Amorphous Light (0-Heavy); Bacteria Rare /hpf; Hyaline Casts 0-2 /lpf (0-2); Red Blood Cells, Urine 0-2 /hpf (0-2); Squamous Epithelial Cells Not Seen /hpf (Few); White Blood Cells, Urine Rare /hpf (0-5)
--- NOTE | 2022-01-21 03:30 | NUR ---
Presurgical scrub, nose santizer and mouth rinse done. @1110
[2022-01-21 04:10] LABS: BASOPHILS ABSOLUTE AUTO 0.02 K/mm3 (0.00-0.23); BASOPHILS PERCENT AUTO 0 % (0-2); EOSINOPHILS ABSOLUTE AUTO 0.01 K/mm3 (0.00-0.68); EOSINOPHILS PERCENT AUTO 0 % (0-6); Hematocrit 39.4 % (37.0-53.0); Hemoglobin 11.9 g/dL (13.5-17.5); IMMATURE GRAN ABSOLUTE AUTO 0.06 K/mm3 (0.00-0.10); IMMATURE GRAN PERCENT AUTO 0 % (0-1); LYMPHOCYTES ABSOLUTE AUTO 0.94 K/mm3 (0.84-5.20); LYMPHOCYTES PERCENT AUTO 7 % (21-46); MONOCYTES ABSOLUTE AUTO 1.07 K/mm3 (0.16-1.47); MONOCYTES PERCENT AUTO 8 % (4-13); Mean Corpuscular HGB 22.8 pg (26.0-34.0); Mean Corpuscular HGB Conc 30.2 g/dL (31.5-36.5); Mean Corpuscular Volume 76 fL (80-100); Mean Platelet Volume 11.6 fL (9.1-12.4); NEUTROPHILS ABSOLUTE AUTO 11.26 K/mm3 (1.96-9.15); NEUTROPHILS PERCENT AUTO 84 % (41-73); Platelet Count 223 K/mm3 (150-400); RDW Coefficient Variation 18.7 % (11.7-14.2); RDW Standard Deviation 50.8 fL (35.1-46.3); Red Blood Cell Count 5.21 M/mm3 (4.30-5.90); White Blood Cell Count 13.36 K/mm3 (4.00-11.30)
[2022-01-21 04:28] LABS: Albumin, Blood 2.5 g/dL (3.4-5.0); Albumin/Globulin Ratio 0.5 (0.8-1.8); Bilirubin, Total 0.7 mg/dL (0.1-1.0); Bun/Creatinine Ratio 35.3 (12.0-20.0); Calcium, Blood 8.4 mg/dL (8.5-10.1); Creatinine, Blood 1.36 mg/dL (0.60-1.20); Globulin, Blood 4.9 g/dL (2.2-4.0); Potassium, Blood 3.1 mmol/L (3.5-5.5); Total Protein, Blood 7.4 g/dL (6.4-8.2)
--- NOTE | 2022-01-21 04:53 | NUR ---
SHIFT SUMMARY PT ADMITTED FOR COLITIS VS APPY. PT REPORTS MILD ABD PAIN AT THIS TIME. TOLERATING PO INTAKE BFORE MIDNIGHT. NPO AFTER MIDNIGHT. DENIES NAUSE AND VOMITING. INDEPENDENT IN ROOM BUT REQUIRE ASSISTANCE WITH THE IV LINE/CORDS. PT HAD MULTIPLE BM. VOIDS ADEQUATELY. ABX ADMINISTERED, IV INFUSING. NEW IV PLACED ON R ARM. PT ON 2L N/C. HX PRICILA, DESATS BETWEEN 85-90% WHEN AT SLEEP. PT DENIES USE OF CPAP AT HOME. CALL LIGHT WITHIN REACH. WILL CONTINUE TO MONITOR. AND WILL PROVIDE REPORT TO ONCOMING NURSE.
--- NOTE | 2022-01-21 17:00 | NUR ---
SHIFT SUMMARY PATIENT DOZED OFF AND ON THROUGHOUT SHIFT. CPAP ON DURING NAPS WITH SUPP O2. DENIES ABD PAIN. SBA TO BATHROOM. SEVERAL SMALL LIQUID STOOLS THIS SHIFT. TOLERATING CLEAR LIQUIDS. NPO AFTER MIDNIGHT. ROUTINE ABX. DR MEDINA WILL DECISE WITH PATIENT SURGERY VS MEDICAL MANAGEMENT TOMORROW 01/22/22. TELE AFIB 100S. SPONGE BATH DONE THIS SHIFT.
--- NOTE | 2022-01-22 04:15 | NUR ---
SHIFT SUMMARY NO ACUTE CHANGES THIS SHIFT. PT NPO SINCE MIDNIGHT FOR POSSIBLE PROCEDURE. PT REPORTS ABD PAIN WITH PALPATION, BUT DENIES NEED FOR PAIN MEDICATIONS. SBA R/T LINES/CORDS TO BRP, OTHERWISE INDEP. PT VOIDING WITHOUT DIFFICULTY AND REPORTS SOME LOOSE STOOL. ON 2-3L 02 VIA NC WITH CPAP IN PLACE AND CONT BIOX. TELE REMAINS IN AFIB. IV ABX PER ORDERS. USES CALL LIGHT APPROPRIATELY.
[2022-01-22 08:59] LABS: BASOPHILS ABSOLUTE AUTO 0.02 K/mm3 (0.00-0.23); BASOPHILS PERCENT AUTO 0 % (0-2); EOSINOPHILS ABSOLUTE AUTO 0.14 K/mm3 (0.00-0.68); EOSINOPHILS PERCENT AUTO 2 % (0-6); Hemoglobin 11.5 g/dL (13.5-17.5); IMMATURE GRAN ABSOLUTE AUTO 0.09 K/mm3 (0.00-0.10); IMMATURE GRAN PERCENT AUTO 1 % (0-1); LYMPHOCYTES ABSOLUTE AUTO 0.95 K/mm3 (0.84-5.20); LYMPHOCYTES PERCENT AUTO 11 % (21-46); MONOCYTES ABSOLUTE AUTO 0.68 K/mm3 (0.16-1.47); MONOCYTES PERCENT AUTO 8 % (4-13); Mean Corpuscular HGB 22.9 pg (26.0-34.0); Mean Corpuscular HGB Conc 29.5 g/dL (31.5-36.5); Mean Corpuscular Volume 78 fL (80-100); Mean Platelet Volume 11.5 fL (9.1-12.4); NEUTROPHILS ABSOLUTE AUTO 7.06 K/mm3 (1.96-9.15); NEUTROPHILS PERCENT AUTO 79 % (41-73); Platelet Count 183 K/mm3 (150-400); RDW Coefficient Variation 18.8 % (11.7-14.2); RDW Standard Deviation 52.4 fL (35.1-46.3); Red Blood Cell Count 5.03 M/mm3 (4.30-5.90); White Blood Cell Count 8.94 K/mm3 (4.00-11.30)
[2022-01-22 09:24] LABS: Anion Gap 8 mmol/L (6-16); Blood Urea Nitrogen 22 mg/dL (8-24); Bun/Creatinine Ratio 26.2 (12.0-20.0); CO2, Blood 25 mmol/L (21-32); Calcium, Blood 8.5 mg/dL (8.5-10.1); Chloride, Blood 105 mmol/L (98-108); Creatinine, Blood 0.84 mg/dL (0.60-1.20); Glomerular Filtration Rate >60 (60-); Glucose, Blood 229 mg/dL (70-99); Potassium, Blood 3.1 mmol/L (3.5-5.5); Sodium, Blood 138 mmol/L (136-145)
--- NOTE | 2022-01-22 17:43 | NUR ---
SHIFT SUMMARY A&O X4, VSS ON RA. DENIES PAIN T/O SHIFT, REPORTS ABDOMEN TO BE NROMAL FOR HIM, DENIES N/V. REPORTS HAVING MULTIPLE LOOSE STOOLS TODAY AND FLATUS. TOLERATING PO CLEAR LIQUIDS WELL. AMBULATING TO THE BR INDEPENDENTLY. ANTICIPATE DC HOME TOMORROW. WILL REPORT TO ONCOMING RN.
--- NOTE | 2022-01-23 03:56 | NUR ---
SHIFT SUMMARY NO ACUTE CHANGES THIS SHIFT. PT DENIES ABD PAIN. REPORTS DIARRHEA. IV ABX PER ORDERS. INDEP TO BRP. USES CALL LIGHT APPROPRIATELY.
[2022-01-23] MEDS ORDERED: AMOCLA875 PO (09:48)
[2022-01-23] MEDS ORDERED: LOSA50 PO (09:49)
[2022-01-23] MEDS ORDERED: LACT PO (09:49)
--- NOTE | 2022-01-23 14:55 | NUR ---
DISCHARGE VSS ON RA, DENIES ABDOMINAL PAIN, TOLERATING PO FULL LIQUIDS. DENIES N/V. VOIDING WELL, REPORTS FLATUS, AMBULATING WIHTIN ROOM WELL. DISCUSSED DISCHARGE INSTRUCTIONS & FAXED SCRIPTS TO PHARMACY. ESCORTED OUT VIA W/C.
== END 2022-01-23 14:45 | disposition home or self-care (01) ==
LOC: ER 14:39 → SURS 14:40
PROVIDERS: Emergency Medicine; Internal Medicine; ADMIT Internal Medicine
DX: K35.80 Unspecified acute appendicitis (principal); N17.9 Acute kidney failure, unspecified; I48.20 Chronic atrial fibrillation, unspecified; I25.10 Atherosclerotic heart disease of native coronary artery without angina pectoris; J44.9 Chronic obstructive pulmonary disease, unspecified; G47.33 Obstructive sleep apnea (adult) (pediatric); G47.34 Idiopathic sleep related nonobstructive alveolar hypoventilation; E86.0 Dehydration; J98.11 Atelectasis; I25.2 Old myocardial infarction; E11.9 Type 2 diabetes mellitus without complications; E66.01 Morbid (severe) obesity due to excess calories; F32.A Depression, unspecified; I10 Essential (primary) hypertension; Z88.8 Allergy status to other drugs, medicaments and biological substances; Z91.048 Other nonmedicinal substance allergy status; Z68.42 Body mass index [BMI] 45.0-49.9, adult; Z79.01 Long term (current) use of anticoagulants; Z20.822 Contact with and (suspected) exposure to COVID-19
CPT/HCPCS: 0241U; 36415; 71045; 74177; 80048; 80053; 81001; 82947; 83605; 83690; 83880; 84484; 85025; 87077; 87086; 87186; 93005; 93010; 94640; 94660; 94664; 94760; 94762; 96365; 96366; 96367; 96372; 96375; 96376; 99285-25; A9270; C9113; G0378; J0295; J0696; J1650; J2405; J7030; J7050; Q9967

== ENCOUNTER 2022-04-18 16:09 | Observation (INO) | payer MEDICARE, OTHER ==
[~2022-04-18] VITALS: Ht 180.3 cm; Wt 147.7 kg
[~2022-04-18 16:09] MED LIST changes: +AMOCLA875 PO; +DILTIAZEM 24HR240 M4 PO; -Diltiazem HCl120 MG PO; -FURO40 PO; +FURO80 PO; +LACT PO
[2022-04-18 16:32] LABS: BASOPHILS ABSOLUTE AUTO 0.03 K/mm3 (0.00-0.23); BASOPHILS PERCENT AUTO 0 % (0-2); EOSINOPHILS ABSOLUTE AUTO 0.06 K/mm3 (0.00-0.68); EOSINOPHILS PERCENT AUTO 0 % (0-6); Hematocrit 46.2 % (37.0-53.0); Hemoglobin 14.3 g/dL (13.5-17.5); IMMATURE GRAN ABSOLUTE AUTO 0.05 K/mm3 (0.00-0.10); IMMATURE GRAN PERCENT AUTO 0 % (0-1); LYMPHOCYTES ABSOLUTE AUTO 1.42 K/mm3 (0.84-5.20); LYMPHOCYTES PERCENT AUTO 9 % (21-46); MONOCYTES ABSOLUTE AUTO 0.96 K/mm3 (0.16-1.47); MONOCYTES PERCENT AUTO 6 % (4-13); Mean Corpuscular HGB 23.3 pg (26.0-34.0); Mean Corpuscular Volume 75 fL (80-100); NEUTROPHILS ABSOLUTE AUTO 12.82 K/mm3 (1.96-9.15); NEUTROPHILS PERCENT AUTO 84 % (41-73); Platelet Count 211 K/mm3 (150-400); RDW Coefficient Variation 19.3 % (11.7-14.2); RDW Standard Deviation 50.3 fL (35.1-46.3); Red Blood Cell Count 6.14 M/mm3 (4.30-5.90); White Blood Cell Count 15.34 K/mm3 (4.00-11.30)
[2022-04-18 16:43] LABS: Mean Platelet Volume 11.2 fL (9.1-12.4)
[2022-04-18 16:55] LABS: Albumin, Blood 3.5 g/dL (3.4-5.0); Albumin/Globulin Ratio 0.8 (0.8-1.8); Bilirubin, Total 0.6 mg/dL (0.1-1.0); Bun/Creatinine Ratio 13.4 (12.0-20.0); Calcium, Blood 9.4 mg/dL (8.5-10.1); Creatinine, Blood 0.82 mg/dL (0.60-1.20); Globulin, Blood 4.6 g/dL (2.2-4.0); Potassium, Blood 3.9 mmol/L (3.5-5.5); Total Protein, Blood 8.1 g/dL (6.4-8.2)
[2022-04-18 23:20] LABS: SARS-Cov-2 (COVID-19) PCR, MMC NEGATIVE (NEGATIVE)
[2022-04-19 04:27] LABS: BASOPHILS ABSOLUTE AUTO 0.03 K/mm3 (0.00-0.23); BASOPHILS PERCENT AUTO 0 % (0-2); EOSINOPHILS ABSOLUTE AUTO 0.04 K/mm3 (0.00-0.68); EOSINOPHILS PERCENT AUTO 0 % (0-6); Hematocrit 43.8 % (37.0-53.0); Hemoglobin 13.3 g/dL (13.5-17.5); IMMATURE GRAN ABSOLUTE AUTO 0.05 K/mm3 (0.00-0.10); IMMATURE GRAN PERCENT AUTO 0 % (0-1); LYMPHOCYTES ABSOLUTE AUTO 1.58 K/mm3 (0.84-5.20); LYMPHOCYTES PERCENT AUTO 10 % (21-46); MONOCYTES ABSOLUTE AUTO 1.26 K/mm3 (0.16-1.47); MONOCYTES PERCENT AUTO 8 % (4-13); Mean Corpuscular HGB 23.5 pg (26.0-34.0); Mean Corpuscular HGB Conc 30.4 g/dL (31.5-36.5); Mean Corpuscular Volume 77 fL (80-100); Mean Platelet Volume 11.1 fL (9.1-12.4); NEUTROPHILS ABSOLUTE AUTO 13.21 K/mm3 (1.96-9.15); NEUTROPHILS PERCENT AUTO 82 % (41-73); Platelet Count 197 K/mm3 (150-400); RDW Coefficient Variation 19.4 % (11.7-14.2); Red Blood Cell Count 5.67 M/mm3 (4.30-5.90); White Blood Cell Count 16.17 K/mm3 (4.00-11.30)
[2022-04-19 04:51] LABS: Albumin, Blood 3.3 g/dL (3.4-5.0); Albumin/Globulin Ratio 0.8 (0.8-1.8); Bilirubin, Total 0.9 mg/dL (0.1-1.0); Calcium, Blood 8.9 mg/dL (8.5-10.1); Creatinine, Blood 0.88 mg/dL (0.60-1.20); Globulin, Blood 4.2 g/dL (2.2-4.0); Potassium, Blood 3.8 mmol/L (3.5-5.5); Total Protein, Blood 7.5 g/dL (6.4-8.2)
--- NOTE | 2022-04-19 05:37 | NUR ---
SUMMARY PT ARRIVED TO FLOOR IN NO DISTRESS. PT DENIES ANY PAIN. PT HAS BEEN NPO SINCE MIDNIGHT. PT COVID SWAB IS NEGATIVE. PT HAS BEEN SLEEPING EASY FOR MOST OF SHIFT.
--- NOTE | 2022-04-19 09:53 | NUR ---
PATIENT IS ASLEEP IN BED. CALL LIGHT WITHIN REACH.
--- NOTE | 2022-04-19 16:26 | NUR ---
SHIFT SUMMARY: APPENDICITIS PATIENT IS A&OX4. VS ARE WNL AND IS ON RA. PATIENT DENIES PAIN AT THIS TIME BUT IS AWARE OF PRN PAIN MEDS. ABD IS TENDER TO TOUCH AND WITH MOVEMENT AT TIMES. HYPERACTIVE BOWEL TONES AND IS VOIDING/PASSING GAS. TOLERATING PO CLEAR LIQUIDS. DENIES NAUSEA AND VOMITING. PATIENT IS INDEP IN THE ROOM AND CALLS APPROPRIATELY. CALL LIGHT WITHIN REACH. THE PLAN IS TO BE NPO AT MIDNIGHT TONIGHT AND TO HAVE A LAP APPY DONE IN THE MORNING.
--- NOTE | 2022-04-20 04:22 | NUR ---
SHIFT SUMMARY A/O X4- PLEASANT AND COOPERATIVE W/ CARE. SBA/IND TO BATHROOM. TOLERATED CLEAR LIQUIDS, NPO SINCE MIDNIGHT. NO PAIN REPORTED THROUGHOUT SHIFT. VITAL SIGNS STABLE. REPORTS PASSING FLATUS. VOIDING WELL. WILL CONTINUE TO MONITOR AND REPORT TO ONCOMING RN.
--- NOTE | 2022-04-20 08:39 | NUR ---
PT TAKEN TO DAY SURGERY AT THIS TIME. SURGICAL CHECKLIST UPDATED. PT DECLINED TO SIGN BLOOD CONSENT OR DECLINATION, HE STATED THAT HE WOULD LIKE DR. MEDINA TO DISCUSS THIS WITH HIS COUSIN DONALDO. DONALDO'S PHONE NUMBER PLACED ON THE FRONT OF THE CHART. PT ASKED ABOUT POSSIBLE SIDE EFFECTS OF GETTING BLOOD. PT WAS PROVIDED WITH EDUCATION REGARDING SIDE EFFECTS WELL RISK VS BENEFITS. PT WAS EDUCATED THAT HE WOULD ONLY GET BLOOD IN AN EMERGENCY SITUATION BUT STAFF NEED TO KNOW HIS WISHES WHILE HE IS AWAKE AND CAN MAKE HIS OWN DECISIONS. PT STILL REQUESTED THAT DR. MEDINA SPEAK WITH HIS FAMILY. DURING THIS INTERACTION PT HAD ON HIS CPAP MASK AND DECLINED TO TAKE IT OFF. PT WAS STAFF NOTIFIED PT THAT IT WAS DIFFICULTY TO UNDERSTAND HIS ANSWERS WITH HIS MASK ON AND PT CONTINUED TO DECLINE TO REMOVE IT. PT WAS ABLE TO ANSWER QUESTIONS AND REPORT GIVEN TO NIK DAY SURGERY RN.
--- NOTE | 2022-04-20 10:00 | NUR ---
04/20/22 Jillian Burton ADMINISTERED 3GRAMS OF ANCEF AT 0920 IN THE OPERATING ROOM. PATIENT ALSO RECEIVED 3GRAMS OF UNASYN PRIOR TO ARRIVING IN THE OR AT 0529.
--- NOTE | 2022-04-20 14:12 | NUR ---
PT ARRIVED BACK TO THE ROOM AT APPROXIMATELY 1230. PT ALERT AND ORIENTED, HIS MENTATION APPEARS AT BASELINE. PT REQUESTED THAT HIS COUSIN DONALDO BE NOTIFIED THAT HE IS BACK TO HIS ROOM, CALL PLACED TO DONALDO AND AN UPDATE WAS PROVIDED. PT REPORTS THAT HE WOULD LIKE TO SLEEP. PT WAS PROVIDED WITH POST OP EDUCATION. PT EDUCATED TO USE HIS INCENTIVE SPIROMETER. ABD BINDER PLACED FOR COMFORT AND ABD SUPPORT. PT WAS ASSESSED AND ASSISTED WITH BIPAP PLACEMENT FOR SLEEP.
--- NOTE | 2022-04-20 16:20 | NUR ---
SHIFT SUMMARY PT IS POD#[address] MEDINA. PT IS TOLERATING CLEAR LIQUIDS. PT IS DROWSY AND HAS BEEN SLEEPING POST OP. PT IS TOLERATING CPAP. REPORT GIVEN TO PHILLIP WILEY.
--- NOTE | 2022-04-20 16:25 | NUR ---
ASSUMED CARE OF PT FROM RICARDO Donato RN. PT SLEEPING. RESPIRATIONS E/U ON CPAP. DOES NOT APPEAR TO BE IN ANY DISTRESS. CALL LIGHT IN REACH.
--- NOTE | 2022-04-21 04:34 | NUR ---
SHIFT SUMMARY PT POD 0 LAP APPY. PT HAS DONE WELL POST OP, HE HAS NOT COMPLAINED OF PAIN. HE BEEN VOIDING WITHOUT DIFFICULTY, AND HAS ALSO HAD A BM. LAP SITES X3 C/D/I. PT TOLERATING PO INTAKE, WITH NO GI COMPLAINTS. PT HAS BEEN UP AND AMBULATING USING THE FWW. IV ANTIBIOTICS PER ORDERS. PT ON 3L O2 CURRENTLY AND MAINTAINING SATS WNL. PLAN IS FOR DC TODAY. BED IN LOWEST POSITION, CALL LIGHT WITHIN REACH.
[2022-04-21 04:46] LABS: BASOPHILS ABSOLUTE AUTO 0.01 K/mm3 (0.00-0.23); BASOPHILS PERCENT AUTO 0 % (0-2); EOSINOPHILS PERCENT AUTO 0 % (0-6); Hemoglobin 11.8 g/dL (13.5-17.5); IMMATURE GRAN ABSOLUTE AUTO 0.08 K/mm3 (0.00-0.10); IMMATURE GRAN PERCENT AUTO 1 % (0-1); LYMPHOCYTES PERCENT AUTO 5 % (21-46); MONOCYTES ABSOLUTE AUTO 0.87 K/mm3 (0.16-1.47); MONOCYTES PERCENT AUTO 6 % (4-13); Mean Corpuscular HGB 23.5 pg (26.0-34.0); Mean Corpuscular HGB Conc 29.5 g/dL (31.5-36.5); Mean Corpuscular Volume 80 fL (80-100); Mean Platelet Volume 11.3 fL (9.1-12.4); NEUTROPHILS ABSOLUTE AUTO 13.66 K/mm3 (1.96-9.15); NEUTROPHILS PERCENT AUTO 89 % (41-73); Platelet Count 206 K/mm3 (150-400); RDW Coefficient Variation 18.9 % (11.7-14.2); RDW Standard Deviation 53.6 fL (35.1-46.3); Red Blood Cell Count 5.02 M/mm3 (4.30-5.90); White Blood Cell Count 15.32 K/mm3 (4.00-11.30)
[2022-04-21 05:12] LABS: Bun/Creatinine Ratio 25.5 (12.0-20.0); Calcium, Blood 8.9 mg/dL (8.5-10.1); Creatinine, Blood 0.82 mg/dL (0.60-1.20); Potassium, Blood 4.4 mmol/L (3.5-5.5)
--- NOTE | 2022-04-21 11:05 | NUR ---
PT IS NOW ON RA. HE APPEARS TO BE TOLERATING WELL. O2 SATURATION RANGING FROM 89-92% WHILE AWAKE. PT AGAIN ENCOURAGED TO USE HIS INCENTIVE SPIROMETER. HE REPORTS HE HAS BEEN USING IT APPROXIMATELY EVERY 15 MINUTES. WILL CONTINUE TO MONITOR O2 SATURATION.
--- NOTE | 2022-04-21 12:25 | NUR ---
PT HAS BEEN ON RA AND IS TOLERATING WELL. O2 SATURATION IS AT 92% AT THIS TIME. SPOKE WITH DR. KWAN REGARDING THIS PT, OK FOR DISCHARGE FROM HIS STANDPOINT. DR. STOKES CONTACTED FOR DISCHARGE ORDERS. WILL TALK WITH THE PATIENT REGARDING DISCHARGE PLAN AND THEN REACH OUT TO DR. STOKES REGARDING PT'S WISHES. PHYSICAL THERAPY ORDER PLACED BY DR. STOKES. PT IS IS AMBULATING WELL. HE IS USING A WALKER BUT STATES HE USES A WALKER OCCASIONALLY AT BASELINE.
[2022-04-21] MEDS ORDERED: VISBIOME 112.51 EACH PO (14:20)
[2022-04-21] MEDS ORDERED: ONDA4ODT MM (14:21)
[2022-04-21] MEDS ORDERED: AMOCLA875 PO (14:21)
--- NOTE | 2022-04-21 15:30 | NUR ---
TRANSPORTATION PT UNABLE TO REACH HIS FRIENDS FOR A RIDE HOME. THIS RN ATTEMPTED TO CONTACT [facility], WITHOUT SUCCESS FOR TRANSPORT HOME. [facility] AND [facility] WERE CONTACTED REGARDING TRANSPORT HOME; BOTH COMPANIES STATED THIS PATIENT CURRENTLY DOES NOT HAVE TRANSPORT BENEFITS. PER [facility], TRANSPORT FROM THE HOSPTIAL TO HOME WITH A STOP AT [facility] TO GET PRESCRIPTIONS IS $49.75, PT VERBALIZED THAT HE IS UNABLE TO COVER THE COST OF TRANSPORT HOME. YOSELIN VENTURA, NURSING PATIENT SITTER CONTACTED REGARDING NEED FOR WHEELCHAIR TRANSPORT HOME TO ASSIST PT WITH PICKING UP PRESCRIPTIONS. WHILE PT IS ABLE TO AMBULATE IT WOULD BE TAXING FOR HIM TO WALK INTO [facility] AND WAIT, [facility] TRANSPORT WAS CONSIDERED AND CHANGED TO W/C TRANSPORT FOR SO PT WOULD HAVE ASSISTANCE TO [place] [facility]ISHER PRESCRIPTIONS. [facility] ALSO STATES THEY NO LONGER HAVE THE ABILITY TO WALK PRESCRIPTIONS OUT TO PT VEHICLES. PER YOSELIN VENTURA, TRANSPORT HOME WAS ARRANGED WITH [facility] WITH HOSPITAL PAY, FOR TRANSPORT BACK TO [facility] WITH A STOP AT [facility] TO OBTAIN PRESCRIPTIONS.
--- NOTE | 2022-04-21 16:50 | NUR ---
DISCHARGE PT PROVIDED WITH WRITTEN AND VERBAL DISCHARGE INSTRUCTIONS, HE REPORTED UNDERSTANDING. PT SENT HOME WITH ABD BINDER AND ENCOURAGED TO CONTINUE USE OF INCENTIVE SPIROMETER. AT TIME OF DISCHARGE PT'S O2 SATURATIONS HAD MAINTAINED 90-92%, WITH RARE DIPS TO 89% (DR. KWAN AWARE) AND QUICK RECOVERY ON ROOM AIR. PT REMAINED OFF OXYGEN SINCE LATE MORNING. PRESCRIPTIONS FAXED TO [facility] PER PT REQUEST, CONFIRMATION OF FAX RECEIVED AND [facility] WAS CONTACTED TO CONFIRM THAT PRESCRIPTIONS WERE READY. HARD SCRIPT FOR [place] PROVIDED TO PT. PT WAS EDUCATED ABOUT NEW MEDICATION. IV SITES X2 LOCATED TO LFA REMOVED BY ASHLYN SAINI, REMOVAL OBSERVED, CATHETERS INTACT AND SITES WNL. PRIOR TO DISCHARGE PT WAS TOLERATING PO, PAIN MANAGED ON PO PAIN MEDICATION, PT HAD A BM, HAS BEEN ABLE TO VOID AND AMBULATING WITH SBA. PT WAS OCCASIONALLY USING THE WALKER; HOWEVER HE ALSO WALKED WELL AND WAS STEADY ON HIS FEET WITHOUT THE WALKER, PT STATES HE HAS A WALKER AT HOME IF NEEDED. TRANSPORT HOME WAS ARRANGED WITH [facility], PT DISCHARGED VIA AMBULANCE TRANSPORT AT APPROXIMATELY 1620.
--- NOTE | 2022-05-17 01:55 | NUR ---
REVIEWED PT'S INFORMATION FOR THEIR CURRENT ADMISSION
== END 2022-04-21 16:20 | disposition home or self-care (01) ==
LOC: ER 16:09 → SURS 20:12
PROVIDERS: Family Medicine; Student in an Organized Health Care Education/Training Program; Surgery; ADMIT Internal Medicine
PROC: 0DTJ4ZZ Resection of Appendix, Percutaneous Endoscopic Approach (ICD-10-PCS; principal; 2022-04-20 08:30)
DX: K35.33 Acute appendicitis with perforation, localized peritonitis, and gangrene, with abscess (principal); A41.9 Sepsis, unspecified organism; I48.20 Chronic atrial fibrillation, unspecified; J44.9 Chronic obstructive pulmonary disease, unspecified; I11.0 Hypertensive heart disease with heart failure; I50.30 Unspecified diastolic (congestive) heart failure; E11.9 Type 2 diabetes mellitus without complications; I25.2 Old myocardial infarction; E66.01 Morbid (severe) obesity due to excess calories; E78.5 Hyperlipidemia, unspecified; F32.A Depression, unspecified; I25.10 Atherosclerotic heart disease of native coronary artery without angina pectoris; G47.33 Obstructive sleep apnea (adult) (pediatric); Z86.73 Personal history of transient ischemic attack (TIA), and cerebral infarction without residual deficits; Z88.8 Allergy status to other drugs, medicaments and biological substances; Z91.048 Other nonmedicinal substance allergy status; Z95.5 Presence of coronary angioplasty implant and graft; Z68.42 Body mass index [BMI] 45.0-49.9, adult; Z79.01 Long term (current) use of anticoagulants; Z20.822 Contact with and (suspected) exposure to COVID-19
CPT/HCPCS: 36415; 74176; 80048; 80053; 82947; 83690; 85025; 88304; 93005; 93010; 94640; 94660; 94664; 94760; 94762; 96365; 96366; 96375; 96376; 99285-25; A9270; G0378; J0295; J0330; J1100; J1885; J2270; J2405; J2543; J2704; J3010; J7030; J7040; U0004

== ENCOUNTER 2022-04-25 18:53 | Emergency (ER) | payer MEDICARE, OTHER ==
[~2022-04-25] VITALS: Ht 180.3 cm; Wt 145.2 kg
[~2022-04-25 18:53] MED LIST changes: +VISBIOME 112.51 EACH PO
[2022-04-25 19:28] LABS: BASOPHILS ABSOLUTE AUTO 0.02 K/mm3 (0.00-0.23); BASOPHILS PERCENT AUTO 0 % (0-2); EOSINOPHILS ABSOLUTE AUTO 0.18 K/mm3 (0.00-0.68); EOSINOPHILS PERCENT AUTO 1 % (0-6); Hematocrit 43.2 % (37.0-53.0); Hemoglobin 13.1 g/dL (13.5-17.5); IMMATURE GRAN ABSOLUTE AUTO 0.13 K/mm3 (0.00-0.10); IMMATURE GRAN PERCENT AUTO 1 % (0-1); LYMPHOCYTES ABSOLUTE AUTO 2.69 K/mm3 (0.84-5.20); LYMPHOCYTES PERCENT AUTO 21 % (21-46); MONOCYTES ABSOLUTE AUTO 0.67 K/mm3 (0.16-1.47); MONOCYTES PERCENT AUTO 5 % (4-13); Mean Corpuscular HGB 23.5 pg (26.0-34.0); Mean Corpuscular HGB Conc 30.3 g/dL (31.5-36.5); Mean Corpuscular Volume 78 fL (80-100); Mean Platelet Volume 11.3 fL (9.1-12.4); NEUTROPHILS ABSOLUTE AUTO 9.24 K/mm3 (1.96-9.15); NEUTROPHILS PERCENT AUTO 71 % (41-73); Platelet Count 304 K/mm3 (150-400); RDW Coefficient Variation 19.4 % (11.7-14.2); RDW Standard Deviation 53.1 fL (35.1-46.3); Red Blood Cell Count 5.57 M/mm3 (4.30-5.90); White Blood Cell Count 12.93 K/mm3 (4.00-11.30)
[2022-04-25 19:45] LABS: Albumin/Globulin Ratio 0.7 (0.8-1.8); Bilirubin, Total 0.2 mg/dL (0.1-1.0); Creatinine, Blood 0.95 mg/dL (0.60-1.20); Globulin, Blood 4.5 g/dL (2.2-4.0); Potassium, Blood 4.1 mmol/L (3.5-5.5); Total Protein, Blood 7.5 g/dL (6.4-8.2)
== END 2022-04-26 00:45 | disposition home or self-care (01) ==
LOC: ER 18:53
PROVIDERS: Emergency Medicine
DX: R20.2 Paresthesia of skin (principal); R00.2 Palpitations; R42 Dizziness and giddiness; R11.0 Nausea; I11.0 Hypertensive heart disease with heart failure; I50.30 Unspecified diastolic (congestive) heart failure; I48.20 Chronic atrial fibrillation, unspecified; I25.10 Atherosclerotic heart disease of native coronary artery without angina pectoris; J44.9 Chronic obstructive pulmonary disease, unspecified; E11.9 Type 2 diabetes mellitus without complications; Z79.01 Long term (current) use of anticoagulants; Z79.899 Other long term (current) drug therapy; Z88.8 Allergy status to other drugs, medicaments and biological substances; Z91.048 Other nonmedicinal substance allergy status
CPT/HCPCS: 36415; 80053; 84484; 85025; 93005; 93010; 99285-25

== ENCOUNTER 2022-05-16 17:57 | Inpatient (IN) | payer MEDICARE ==
[~2022-05-16] VITALS: Ht 182.9 cm; Wt 149.3 kg
[2022-05-16 18:34] LABS: BASOPHILS ABSOLUTE AUTO 0.03 K/mm3 (0.00-0.23); BASOPHILS PERCENT AUTO 0 % (0-2); EOSINOPHILS ABSOLUTE AUTO 0.17 K/mm3 (0.00-0.68); EOSINOPHILS PERCENT AUTO 2 % (0-6); Hematocrit 42.1 % (37.0-53.0); Hemoglobin 12.9 g/dL (13.5-17.5); IMMATURE GRAN ABSOLUTE AUTO 0.02 K/mm3 (0.00-0.10); IMMATURE GRAN PERCENT AUTO 0 % (0-1); LYMPHOCYTES ABSOLUTE AUTO 1.72 K/mm3 (0.84-5.20); LYMPHOCYTES PERCENT AUTO 18 % (21-46); MONOCYTES PERCENT AUTO 9 % (4-13); Mean Corpuscular HGB 23.9 pg (26.0-34.0); Mean Corpuscular HGB Conc 30.6 g/dL (31.5-36.5); Mean Corpuscular Volume 78 fL (80-100); Mean Platelet Volume 11.6 fL (9.1-12.4); NEUTROPHILS ABSOLUTE AUTO 6.87 K/mm3 (1.96-9.15); NEUTROPHILS PERCENT AUTO 71 % (41-73); Platelet Count 187 K/mm3 (150-400); RDW Coefficient Variation 18.6 % (11.7-14.2); RDW Standard Deviation 51.9 fL (35.1-46.3); White Blood Cell Count 9.71 K/mm3 (4.00-11.30)
[2022-05-16 18:52] LABS: Albumin, Blood 3.4 g/dL (3.4-5.0); Albumin/Globulin Ratio 0.8 (0.8-1.8); Bilirubin, Total 0.3 mg/dL (0.1-1.0); Bun/Creatinine Ratio 16.8 (12.0-20.0); Calcium, Blood 8.8 mg/dL (8.5-10.1); Creatinine, Blood 0.83 mg/dL (0.60-1.20); Globulin, Blood 4.1 g/dL (2.2-4.0); Potassium, Blood 3.8 mmol/L (3.5-5.5); Thyroid Stimulating Hormone 1.65 uIU/mL (0.360-4.800); Total Protein, Blood 7.5 g/dL (6.4-8.2)
[2022-05-16 19:03] LABS: International Normalized Ratio 1.05
[2022-05-16 19:18] LABS: Source, Urine Clean Catch
[2022-05-16 19:23] LABS: Appearance, Urine Clear (Clear); Bilirubin, Urine Neg (Neg); Blood, Urine Neg (Neg); Color, Urine Yellow (P-Yellow); Glucose Qualitative, Urine Neg (Neg); Ketones, Urine Neg (Neg); Leukocyte Esterase, Urine Neg (Neg); Nitrite, Urine Neg (Neg); Protein, Urine Neg (Neg); Specific Gravity, Urine 1.015 (1.003-1.022); Urobilinogen, Urine NORM (Normal)
[2022-05-16] MEDS ORDERED: ATORVASTATIN CA20 MG PO (19:50)
[2022-05-16] MEDS ORDERED: METO50ER PO (19:50)
[2022-05-16 20:07] LABS: Influenza A, PCR NEGATIVE (NEGATIVE); Influenza B, PCR NEGATIVE (NEGATIVE); Resp Syncytial Virus, PCR NEGATIVE (NEGATIVE); SARS-Cov-2 (COVID-19) PCR, MMC NEGATIVE (NEGATIVE)
[2022-05-17] MEDS ORDERED: METOCLOPRAMIDE PO (01:48)
[2022-05-17] MEDS ORDERED: PANTOPRAZOLE SO40 M2 PO (01:48)
--- NOTE | 2022-05-17 03:28 | NUR ---
ADMIT NOTE 62 YR OLD MALE AMITTED TO FLOOR FROM THE ED WITH DX OF CVA WITH LEFT SIDE WEAKNESS. ALERT WITH SOME APHASIA. HX NJ X 3, HTN, CHF, A FIB AND ASTHMA. ORIENTED TO USE OF CALL LIGHT. RT TO CONNECT CPAP. PT VOICED SOME SOB, REQUESTED INHALER. RT TO ASSESS PT AT BEDSIDE FOR TX. CALL PLACED TO MD. CALL LIGHT IN REACH. HOB ELEVATED.
[2022-05-17 04:40] LABS: Hematocrit 41.6 % (37.0-53.0); Hemoglobin 12.5 g/dL (13.5-17.5); Mean Corpuscular HGB 23.6 pg (26.0-34.0); Mean Corpuscular Volume 79 fL (80-100); Mean Platelet Volume 11.7 fL (9.1-12.4); Platelet Count 169 K/mm3 (150-400); RDW Coefficient Variation 18.3 % (11.7-14.2); RDW Standard Deviation 51.2 fL (35.1-46.3); White Blood Cell Count 8.12 K/mm3 (4.00-11.30)
[2022-05-17 04:58] LABS: Bun/Creatinine Ratio 14.8 (12.0-20.0); Creatinine, Blood 0.88 mg/dL (0.60-1.20); Potassium, Blood 3.8 mmol/L (3.5-5.5)
--- NOTE | 2022-05-17 05:50 | NUR ---
NETWORK SECURITY ANALYST SUMMARY HAS BEEN RESTING QUIETLY WITH FEW INTERRUPTIONS. MED TELE SINUS KATHY, DROPPING INTO THE 30'S, ASYMPTOMATIC. ED RN VOICED PT HAD THIS IN THE ED AND THE MD'S WERE AWARE. O2 PER CPAP WITH 2L BLEED IN. LEFT SIDE WEAKER THAN RIGHT. SPEECH REMAINS SOMEWHAT APHASIC BUT UNDERSTANDABLE. DENIES PAIN AND LOSS OF FEELING. CALL LIGHT IN REACH. VSS.
[2022-05-17 08:49] LABS: CHOL/HDL RATIO 3.1; Cholesterol 91 mg/dL (50-200); HDL Cholesterol 29 mg/dL (>39); LDL/HDL RATIO 1.3; Low Density Lipoprotein Chol 37 mg/dL (0-110); Triglycerides 125 mg/dL (30-160); Very Low Density Lipoprot Chol 25 mg/dL (6-32)
[2022-05-17] MEDS ORDERED: HYDPAM25 PO (12:41)
--- NOTE | 2022-05-17 16:03 | NUR ---
DISCHARGE SUMMARY PT DISCHARGED AT 1420 TODAY BACK TO HIS HOME IN ASSISTED LIVING. ALL DISCHARGE INFORMATION GONE OVER WITH BOTH NURSE AND PHARMACIST. INFOMRATION GIVEN ON STROKE AND IV DC'D.
== END 2022-05-17 14:17 | disposition home or self-care (01) | DRG 880 ==
LOC: ER 17:57 → ERHOLD 22:02 → MEDS 22:02
PROVIDERS: Internal Medicine; Student in an Organized Health Care Education/Training Program; ADMIT Internal Medicine
DX: F43.0 Acute stress reaction (principal); I48.20 Chronic atrial fibrillation, unspecified; I50.32 Chronic diastolic (congestive) heart failure; J44.9 Chronic obstructive pulmonary disease, unspecified; G47.33 Obstructive sleep apnea (adult) (pediatric); E11.9 Type 2 diabetes mellitus without complications; Z88.8 Allergy status to other drugs, medicaments and biological substances; Z91.048 Other nonmedicinal substance allergy status; F32.A Depression, unspecified; I25.10 Atherosclerotic heart disease of native coronary artery without angina pectoris; I25.2 Old myocardial infarction; G43.909 Migraine, unspecified, not intractable, without status migrainosus; I11.0 Hypertensive heart disease with heart failure; Z90.49 Acquired absence of other specified parts of digestive tract; Z95.5 Presence of coronary angioplasty implant and graft; Z98.890 Other specified postprocedural states; Z79.82 Long term (current) use of aspirin; Z79.899 Other long term (current) drug therapy; Z20.822 Contact with and (suspected) exposure to COVID-19; Z79.01 Long term (current) use of anticoagulants
CPT/HCPCS: 0241U; 36415; 70450; 70496; 70498; 71045; 80048; 80053; 80061; 81003; 82947; 83036; 83735; 84443; 84484; 85025; 85027; 85610; 93005; 93010; 94640; 94660; 94664; 94760; 96374; 97110; 97116; 97161; 97165; 97530; 97535; 99285-25; A9270; J2405; Q9967

== ENCOUNTER 2023-01-03 17:54 | Emergency (ER) | payer MEDICARE, OTHER ==
[~2023-01-03] VITALS: Ht 180.3 cm; Wt 106.1 kg
[~2023-01-03 17:54] MED LIST changes: +ATORVASTATIN CA20 MG PO; +HYDPAM25 PO; +METOCLOPRAMIDE PO; +PANTOPRAZOLE SO40 M2 PO
[2023-01-03] MEDS ORDERED: METO5A PO (19:46)
== END 2023-01-03 20:01 | disposition home or self-care (01) ==
LOC: ER 17:54
DX: K62.5 Hemorrhage of anus and rectum (principal); I25.10 Atherosclerotic heart disease of native coronary artery without angina pectoris; J44.9 Chronic obstructive pulmonary disease, unspecified; E11.9 Type 2 diabetes mellitus without complications; I50.30 Unspecified diastolic (congestive) heart failure; Z91.09 Other allergy status, other than to drugs and biological substances; Z91.048 Other nonmedicinal substance allergy status; Z79.899 Other long term (current) drug therapy; Z79.82 Long term (current) use of aspirin; Z86.73 Personal history of transient ischemic attack (TIA), and cerebral infarction without residual deficits
CPT/HCPCS: 99283